=== PATIENT | female | born 1995 | race Caucasian/White ===

== ENCOUNTER → 2020-04-14 08:37 | Outpatient (BNVA) | payer MEDICAID, SELFPAY | PROVIDERS: PCP Internal Medicine; Referring Provider Internal Medicine; Visit Provider Internal Medicine Endocrinology, Diabetes & Metabolism | DX: E05.90 Thyrotoxicosis, unspecified without thyrotoxic crisis or storm (principal); E04.2 Nontoxic multinodular goiter; E55.9 Vitamin D deficiency, unspecified; E66.9 Obesity, unspecified; Z91.018 Allergy to other foods; Z91.09 Other allergy status, other than to drugs and biological substances; Z79.899 Other long term (current) drug therapy | CPT/HCPCS: 99212 ==

== ENCOUNTER 2020-04-16 08:54 | Outpatient (REF) | payer MEDICAID, SELFPAY ==
[2020-04-16 11:31] LABS: Free T4 (Free Thyroxine) 1.03 ng/dL (0.71-1.85); Thyroid Stimulating Hormone 1.25 mIU/mL (0.32-4.0); Vitamin D 25-OH Total 20.9 ng/mL (>30)
[2020-04-17 08:57] LABS: Triiodothyronine T3 Total 110 ng/dL (76-181)
== END 2020-04-16 08:55 | disposition home or self-care (01) ==
LOC: HO.10HDL 08:54
PROVIDERS: Visit Provider Internal Medicine Endocrinology, Diabetes & Metabolism
DX: E04.2 Nontoxic multinodular goiter (principal); E05.90 Thyrotoxicosis, unspecified without thyrotoxic crisis or storm; E55.9 Vitamin D deficiency, unspecified
CPT/HCPCS: 82306; 84439; 84443; 84480

== ENCOUNTER 2020-10-12 10:47 | Outpatient (REF) | payer MEDICAID, SELFPAY ==
[2020-10-12 15:06] LABS: Free T4 (Free Thyroxine) 0.81 ng/dL (0.71-1.85); Thyroid Stimulating Hormone 3.13 uIU/mL (0.32-4.0)
== END 2020-10-12 10:48 | disposition home or self-care (01) ==
LOC: HO.10HDL 10:47
PROVIDERS: Visit Provider Internal Medicine Endocrinology, Diabetes & Metabolism
DX: E04.2 Nontoxic multinodular goiter (principal); E05.90 Thyrotoxicosis, unspecified without thyrotoxic crisis or storm
CPT/HCPCS: 36415; 84439; 84443; 84481

== ENCOUNTER → 2020-10-23 14:09 | Outpatient (BNVA) | payer MEDICAID, SELFPAY | PROVIDERS: PCP Internal Medicine; Visit Provider Internal Medicine Endocrinology, Diabetes & Metabolism | DX: E05.90 Thyrotoxicosis, unspecified without thyrotoxic crisis or storm (principal); E04.2 Nontoxic multinodular goiter; E55.9 Vitamin D deficiency, unspecified; E66.9 Obesity, unspecified | CPT/HCPCS: 99212 ==

== ENCOUNTER 2021-04-27 14:24 | Outpatient (REF) | payer MEDICAID, SELFPAY ==
--- NOTE | ~2021-04-27 | US_ITS ---
EXAMINATION: US DIAGNOSTIC ULTRASOUND BREAST, LEFT CLINICAL INFORMATION: Recent clear left nipple discharge 1-2 months. Negative laboratory. No prior breast imaging. Family history breast cancer paternal grandmother, aunt. COMPARISON: None. TECHNIQUE: Ultrasound left breast is targeted to the retroareolar and periareolar region. Grayscale imaging and color Doppler are performed without and with harmonics. FINDINGS: There is no focal suspicious finding. There is no cystic or solid mass, architectural abnormality, duct ectasia, or edema in the soft tissue planes. Results and management options are discussed with the patient at time of visit. US/US breast LT limited IMPRESSION: Unremarkable targeted left breast ultrasound. ASSESSMENT: BI-RADS 1: Negative RECOMMENDATION: If clinically indicated, further assessment for unexplained left nipple discharge may be performed with breast MRI without and with gadolinium contrast.
== END 2021-04-27 14:25 | disposition home or self-care (01) ==
LOC: HO.MAMMO 14:24
PROVIDERS: Visit Provider Advanced Practice Midwife
DX: N64.52 Nipple discharge (principal)
CPT/HCPCS: 76642

== ENCOUNTER 2021-09-10 22:49 | Emergency (ER) | payer MEDICAID, SELFPAY ==
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
[2021-09-11 00:16] VITALS: BP 137/89; PULSE 94; RESP 16; TEMP 36.7; O2SAT 100; BMI 37.0
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
[2021-09-11] MEDS: Ibuprofen 600 MG TABLET PO (01:00)
== END 2021-09-11 01:31 | disposition home or self-care (01) ==
PROVIDERS: Emergency Provider Emergency Medicine Emergency Medical Services; PCP Internal Medicine
DX: S39.012A Strain of muscle, fascia and tendon of lower back, initial encounter (principal); V43.52XA Car driver injured in collision with other type car in traffic accident, initial encounter; Y93.89 Activity, other specified; Y92.488 Other paved roadways as the place of occurrence of the external cause; Y99.8 Other external cause status
CPT/HCPCS: 72100; 99283; 99284

== ENCOUNTER 2022-11-17 15:03 | Outpatient (REF) | payer MEDICAID, SELFPAY ==
--- NOTE | ~2022-11-17 | US_ITS ---
EXAMINATION: US PELVIS CLINICAL INFORMATION: Left adnexal pain; the last menstrual period was on 10/2022. COMPARISON: None available. TECHNIQUE: Ultrasound of the pelvis is performed using both transabdominal and transvaginal transducers along with Doppler. Transvaginal imaging is performed due to inadequate visualization transabdominally. FINDINGS: Uterus: The uterus is anteverted and anteflexed. The uterus measures 8.9 x 2.4 x 4.9 cm. Nabothian cysts are seen within the cervix. The double wall endometrial thickness is 0.4 mm. The uterus is smooth in contour and has normal myometrial echogenicity. No visible fibroid. Adnexa: Both ovaries are visualized. There is normal color flow to the adnexa. There is no ovarian torsion. There is no pelvic ascites or fluid collection. Right ovary measures 2.9 x 1.4 x 2.3 cm, volume 4.9 mL. Left ovary measures 3.0 x 1.6 x 1.5 cm, volume 3.8 mL. US/US pelvic and transvaginal IMPRESSION: Nabothian cysts are seen within the cervix. The examination is otherwise unremarkable.
== END 2022-11-17 15:04 | disposition home or self-care (01) ==
LOC: HO.US 15:03
PROVIDERS: PCP Internal Medicine; Visit Provider Registered Nurse
DX: N91.2 Amenorrhea, unspecified (principal)
CPT/HCPCS: 76830; 76856

== ENCOUNTER 2022-12-14 11:44 | Emergency (ER) | payer MEDICAID, SELFPAY ==
[2022-12-14 12:20] VITALS: BP 153/89; PULSE 135; RESP 20; TEMP 37.9; O2SAT 97; BMI 37.1
--- NOTE | 2022-12-14 12:25 | ED_ITS ---
HPI - General Adult General Chief complaint: Dizziness Stated complaint: Dizziness Time Seen by Provider: 12/14/22 13:17 Source: patient Mode of arrival: ambulatory Limitations: no limitations History of Present Illness HPI narrative: 27 year old female presents with dizziness Started 3 days ago Symptoms worse with certain positions and randomly Described both as lightheaded and sensation of room spinning No nausea or vomiting No MARCANO, chest pain, SOB + Palpitations New in Onset No prior treatment Associated with anxiety and stress + FH father with heart problems. Related Data Home Medications Medication Instructions Recorded Confirmed fluticasone propionate 50 1 spray intranasal DAILY 10/23/20 mcg/actuation nasal spray,suspension (Flonase Allergy Relief) loratadine 10 mg capsule 10 mg PO DAILY 10/23/20 Previous Rx's Medication Instructions Recorded cholecalciferol (vitamin D3) 50 50 mcg PO DAILY #30 caps 01/15/21 mcg (2,000 unit) capsule cyclobenzaprine 5 mg tablet 5 mg PO BID PRN muscle spasm #10 09/11/21 tabs ibuprofen 600 mg tablet 600 mg PO Q8H PRN pain #20 tabs 09/11/21 meclizine 25 mg tablet 25 mg PO BID PRN dizziness #10 tabs 12/14/22 ondansetron 4 mg disintegrating 4 mg PO Q8H PRN nausea and 12/14/22 tablet vomiting #10 tabs Allergies Allergy/AdvReac Type Severity Reaction Status Date / Time No Known Drug Allergies Allergy Unknown NONE Verified 12/14/22 16:14 [NO KNOWN DRUG ALLERGIES] Apple (Diagnostic) Allergy Unknown shortness Uncoded 11/12/21 17:31 of breath ENVIRONMENTAL Allergy Unknown EYES RUNNY Uncoded 11/12/21 17:31 STUFFY kiwi, pears, dogs/cats, Allergy Unknown shortness Uncoded 11/12/21 17:31 season of breath Review of Systems Review of Systems: CONSTITUTIONAL: Denies weight loss, fever and chills. HEENT: Denies changes in vision and hearing. RESPIRATORY: Denies SOB and cough. CV: + palpitations no CP. GI: Denies abdominal pain, nausea, vomiting and diarrhea. : Denies dysuria and urinary frequency. MSK: Denies myalgia and joint pain. SKIN: Denies rash and pruritus. NEUROLOGICAL: Denies headache and syncope. PSYCHIATRIC: Denies recent changes in mood. Denies anxiety and depression. All other ROS are negative unless in [facility] Past Medical History Medical History Multinodular goiter Obesity Subclinical hyperthyroidism Vitamin D deficiency Surgical History Hx of tonsillectomy Family History Family History Father Diabetes Mother Lyme disease Pre-diabetes HTN (hypertension) Social History Social History Alcohol intake: never Smoked in Last 30 Days: No Use of substances other than those prescribed or required for medical reasons: No Advance Directives: No Advance Directives Information Provided: Yes Physical Exam ED Vital Signs: Vital Signs - 24 hr 12/14/22 12:20 12/14/22 13:03 12/14/22 13:10 Temperature 100.3 F 98.8 F Pulse Rate 135 H 113 H 127 H Respiratory Rate 20 18 Blood Pressure 153/89 H 147/77 H 129/74 Pulse Oximetry 97 100 Oxygen Delivery Method Room Air Room Air 12/14/22 13:10 12/14/22 13:11 12/14/22 18:09 Temperature 98.3 F Pulse Rate 117 H 121 H 106 H Respiratory Rate 22 H Blood Pressure 139/84 150/96 H 129/84 Pulse Oximetry 100 Oxygen Delivery Method Room Air BMI result Body Mass Index 37.1 GEN: Well developed, no acute distress, alert, oriented HEENT: Normocephalic, atraumatic, normal external ears, nose appears normal, no oropharyngeal edema or exudates Eyes: Normal to appearance Neck: Supple, no lymphadenopathy Respiratory: Talks in complete sentences, no respiratory distress, clear to auscultation bilaterally Cardiovascular: Regular rate and rhythm, no murmurs rubs or gallops Abdomen: Soft, nontender, nondistended, no guarding, no rebound Back: No CVA tenderness Extremities: No clubbing cyanosis or edema Neurologic: No focal neurologic deficits, cranial nerves 2-12 intact, strength is 5/5 bilaterally, no nystagmus Skin: No rash Course Course Course Narrative: RME- 27-year-old female presents for evaluation of weakness, dizziness. She also reports irregular periods. She is not on control. Patient noted to have a temperature of a 100.3?. Plan for labs, UA, chest x-ray, viral swab, test.. The patient appears well. Reevaluation(s) Reevaluation #1: Patient is doing much better at this time. She continues have some slight lightheadedness. However she does not want the intravenous catheter replaced to you provide better flow. She is drinking orally without significant difficulty. I suspect her symptoms are multifactorial which is most likely vertigo associated with some orthostatic hypotension. She would like to be discharged at this time. She will drink fluids at home. Will provide her with prescriptions for Zofran and meclizine. She will return for any worsening or concerning symptoms. She is well aware of the EKG changes which would likely rate related as opposed to ischemic in nature. However, should she develop any cardiac symptoms she will return immediately. Time: 18:22 Medications Administered Discontinued Medications Generic Name Dose Route Start Last Admin Trade Name Freq PRN Reason Stop Dose Admin Meclizine HCl 25 mg 12/14/22 13:31 12/14/22 13:47 Meclizine Hcl 25 Mg Tablet PO 12/14/22 13:32 25 mg ONCE ONE Administration Ondansetron HCl 4 mg 12/14/22 13:31 12/14/22 13:47 Ondansetron Hcl 4 Mg/2 Ml Vial IVPUSH 12/14/22 13:32 4 mg ONCE ONE Administration Medical Decision Making Medical Decision Making [facility] Narrative: 27 yo female with no sig medical problems presents with dizziness. Exam with regular HR and tachycardic, anxious. DD: anxiety, orthostatic hypotension, tachycardia, vertigo, BPPV, labarythitis, vestibular neurotitis, electrolyte, hypoglycemia, anemia Plan: Labs, no indication at this time for neuroimaging. Differential Diagnosis Differential Diagnoses: The differential diagnosis associated with the presentation includes (see above) Vertigo, orthostasis Admission/Observation Consideration of admission/observation: Escalation of care including admission/observation considered Lab Data [facility] Lab Attestation statement: I reviewed the patient's lab results. 12/14/22 12:40 12/14/22 12:40 Labs: Lab Results 12/14/22 12/14/22 12/14/22 Range/Units 12:36 12:40 12:40 WBC 6.8 (4.8-10.8) X10*3/uL RBC 4.97 (4.20-5.50) X10*6/uL Hgb 14.0 (12.0-16.0) g/dl Hct 43.8 (37.0-47.0) % MCV 88.1 (80.0-98.0) fL MCH 28.2 (27.0-33.0) pg MCHC 32.0 (31.0-35.0) g/dl RDW 12.0 (11.0-16.0) % Plt Count 298 (160-400) X10*3/uL MPV 10.4 (9.4-12.3) fL Immature Gran % (Auto) 0.3 (0.0-0.4) % Neut % (Auto) 58.1 (45-73) % Lymph % (Auto) 30.9 (20-40) % Ellsworth % (Auto) 5.9 (2-11) % Eos % (Auto) 4.1 H (0-4) % Baso % (Auto) 0.7 (0-2) % Lymph # (Auto) 2.1 (1.2-4.9) X10*3/uL Ellsworth # (Auto) 0.4 (0.1-1.2) X10*3/uL Eos # (Auto) 0.3 (0.0-0.4) X10*3/uL Baso # (Auto) 0.1 (0.0-0.2) X10*3/uL Abs Immat Gran (auto) 0.02 (0.00-0.03) X10*3/uL Absolute Neuts (auto) 3.9 (2.0-8.3) x10*3/uL Absolute Nucleated RBC 0.000 (0.0-0.012) X10*3/uL Nucleated RBC % (auto) 0.0 (0.0-0.2) /100WBC Sodium 142 (135-145) mmol/L Potassium 3.8 (3.3-5.1) mmol/L Chloride 109 H (96-108) mmol/L Carbon Dioxide 21 L (22-29) mmol/L Anion Gap 16 (12-20) BUN 6 L (9-16) mg/dL Creatinine 0.71 (0.5-1.4) mg/dL Estim Creat Clear Calc 132.9 Estimated GFR > 60 Random Glucose 104 (60-115) mg/dL Calcium 9.9 (8.4-10.2) mg/dL Total Bilirubin 0.9 (0.0-1.0) mg/dL AST 19 (5-31) U/L ALT 28 (0-31) U/L Alkaline Phosphatase 115 (39-117) U/L Total Protein 7.7 (6.5-8.0) g/dL Albumin 4.5 (3.5-5.0) g/dL Lipase 83 H (8-78) U/L Beta HCG, Quant mIU/mL Urine Color Yellow Urine Appearance Clear Urine pH 7.5 (5.0-9.0) Ur Specific [place] <= 1.005 (1.005-1.025) Urine Protein Negative (Neg-Trace) mg/dL Urine Glucose (UA) Negative (Negative) mg/dL Urine Ketones Negative (Negative) mg/dL Urine Blood Negative (Negative) Urine Nitrite Negative (Negative) Ur Leukocyte Esterase Negative (Negative) Urine RBC 0-2 (0-2) /HPF Urine WBC 0-5 (0-5) /HPF Ur Squamous Epith Cells 0-2 (0-2) /HPF Urine Bacteria None Seen (None Seen) Hyaline Casts 0-2 (0-2) /LPF Influenza Type A (PCR) (Negative) Influenza Type B (PCR) (Negative) RSV RNA Qual (PCR) (Negative) SARS-CoV-2 RNA (RT-PCR) (Negative) 12/14/22 12/14/22 Range/Units 12:40 12:41 WBC (4.8-10.8) X10*3/uL RBC (4.20-5.50) X10*6/uL Hgb (12.0-16.0) g/dl Hct (37.0-47.0) % MCV (80.0-98.0) fL MCH (27.0-33.0) pg MCHC (31.0-35.0) g/dl RDW (11.0-16.0) % Plt Count (160-400) X10*3/uL MPV (9.4-12.3) fL Immature Gran % (Auto) (0.0-0.4) % Neut % (Auto) (45-73) % Lymph % (Auto) (20-40) % Ellsworth % (Auto) (2-11) % Eos % (Auto) (0-4) % Baso % (Auto) (0-2) % Lymph # (Auto) (1.2-4.9) X10*3/uL Ellsworth # (Auto) (0.1-1.2) X10*3/uL Eos # (Auto) (0.0-0.4) X10*3/uL Baso # (Auto) (0.0-0.2) X10*3/uL Abs Immat Gran (auto) (0.00-0.03) X10*3/uL Absolute Neuts (auto) (2.0-8.3) x10*3/uL Absolute Nucleated RBC (0.0-0.012) X10*3/uL Nucleated RBC % (auto) (0.0-0.2) /100WBC Sodium (135-145) mmol/L Potassium (3.3-5.1) mmol/L Chloride (96-108) mmol/L Carbon Dioxide (22-29) mmol/L Anion Gap (12-20) BUN (9-16) mg/dL Creatinine (0.5-1.4) mg/dL Estim Creat Clear Calc Estimated GFR Random Glucose (60-115) mg/dL Calcium (8.4-10.2) mg/dL Total Bilirubin (0.0-1.0) mg/dL AST (5-31) U/L ALT (0-31) U/L Alkaline Phosphatase (39-117) U/L Total Protein (6.5-8.0) g/dL Albumin (3.5-5.0) g/dL Lipase (8-78) U/L Beta HCG, Quant < 2 mIU/mL Urine Color Urine Appearance Urine pH (5.0-9.0) Ur Specific N[place] (1.005-1.025) Urine Protein (Neg-Trace) mg/dL Urine Glucose (UA) (Negative) mg/dL Urine Ketones (Negative) mg/dL Urine Blood (Negative) Urine Nitrite (Negative) Ur Leukocyte Esterase (Negative) Urine RBC (0-2) /HPF Urine WBC (0-5) /HPF Ur Squamous Epith Cells (0-2) /HPF Urine Bacteria (None Seen) Hyaline Casts (0-2) /LPF Influenza Type A (PCR) NEGATIVE (Negative) Influenza Type B (PCR) NEGATIVE (Negative) RSV RNA Qual (PCR) NEGATIVE (Negative) SARS-CoV-2 RNA (RT-PCR) NEGATIVE (Negative) Independent Interpretation I performed an independent interpretation of an: EKG (Sinus tachycardia, ST depressions HR 140) and Plain X-Ray (Chest: NAD) Interpretation: Repeat EKG at 6:03 p.m. presents with normal sinus rhythm heart rate 95 sinus arrhythmia, no acute ST elevations depressions which appeared to have resolved ST depressions. Nonspecific changes, RSR prime in V1. Prescription Management I considered prescription management with: Pain Medication and Antibiotic Discharge Plan Discharge Clinical Impression: Orthostatic hypotension, Vertigo, Anxiety, ST segment depression, Sinus tachycardia Patient Disposition: Home, Self-Care Instructions: Vertigo (ED), Panic Disorder (ED), Dizziness (ED), Anxiety (ED), Tachycardia (ED), Electrophysiology Study (DC) Additional Instructions: You were seen today for dizziness and lightheadedness. The dizziness was consistent with vertigo with a sensation of movement while the lightheadedness is consistent with orthostatic hypotension. Recommending that you drink plenty of fluids and keep yourself hydrated. Is also noted that when your heart rate was approximately 140 beats per minute, you had some EKG changes that are potentially concerning but more likely are rate related nature. You should follow-up with dye expert for further evaluation. Should he develop any chest pain, shortness breath, lightheadedness or other concerning symptoms, please return immediately to the hospital for re-evaluation. Prescriptions: New ondansetron 4 mg tablet,disintegrating 4 mg PO Q8H PRN (Reason: nausea and vomiting) Qty: 10 0RF meclizine 25 mg tablet 25 mg PO BID PRN (Reason: dizziness) Qty: 10 0RF No Action cholecalciferol (vitamin D3) 50 mcg (2,000 unit) capsule 50 mcg PO DAILY Qty: 30 2RF Rx Instructions: Please request more refills from primary care provider. cyclobenzaprine 5 mg tablet 5 mg PO BID PRN (Reason: muscle spasm) Qty: 10 0RF Rx Instructions: You can take this medication twice a day in the 1st 3 days and then you should take it at bedtime. Please avoid driving when taking this medication. ibuprofen 600 mg tablet 600 mg PO Q8H PRN (Reason: pain) Qty: 20 0RF Referrals: Wander Gallagher MD [Physician] - 1 week
[2022-12-14 13:03] VITALS: BP 147/77; PULSE 113; RESP 18; TEMP 37.1; O2SAT 100
[2022-12-14 13:10] VITALS: BP 129/74; BP 139/84; PULSE 117; PULSE 127
[2022-12-14 13:11] VITALS: BP 150/96; PULSE 121
--- NOTE | 2022-12-14 16:18 | PC.NURSE ---
Pt given PO fluids, with IV fluids, pt reporting still not feeling well, spinning has improved, but pt still feels dizzy and off
[2022-12-14 18:09] VITALS: BP 129/84; PULSE 106; RESP 22; TEMP 36.8; O2SAT 100
== END 2022-12-14 18:40 | disposition home or self-care (01) ==
PROVIDERS: Emergency Provider Emergency Medicine; PCP Internal Medicine
DX: I95.1 Orthostatic hypotension (principal); R42 Dizziness and giddiness; R00.0 Tachycardia, unspecified; F41.9 Anxiety disorder, unspecified; Z20.822 Contact with and (suspected) exposure to COVID-19; Z20.828 Contact with and (suspected) exposure to other viral communicable diseases; Z79.899 Other long term (current) drug therapy; E66.9 Obesity, unspecified; Z68.37 Body mass index [BMI] 37.0-37.9, adult
CPT/HCPCS: 0241U; 36415; 71046; 80053; 81001; 83690; 84702; 85025; 93005; 96374; 99284; 99285; J2405

== ENCOUNTER 2023-02-01 09:00 | Outpatient (AMB) | payer MEDICAID, SELFPAY ==
--- NOTE | 2023-02-01 09:01 | MHC.OFFVIS ---
Intake Vital Signs 02/01/23 09:02 Height 5 ft 4 in Weight 216 lb BMI 37.1 BP 142/90 H Blood Pressure Location Lt brachial Position Sitting Pulse 118 H Intake Visit Reasons: [employer]/ Ap/ hbp/ abn ekg Intake Note: NPV [employer] Supervisor Required: No Accompanied by: Self / Same As Patient Allergies No Known Drug Allergies [NO KNOWN DRUG ALLERGIES] Allergy (Unknown, Verified 02/01/23 09:03) NONE Apple (Diagnostic) Allergy (Unknown, Uncoded 02/01/23 09:03) shortness of breath ENVIRONMENTAL Allergy (Unknown, Uncoded 02/01/23 09:03) EYES RUNNY STUFFY kiwi, pears, dogs/cats, season Allergy (Unknown, Uncoded 02/01/23 09:03) shortness of breath Medication List - Last Reconciled 02/01/23 by Thomas San MD fluticasone propionate 50 mcg/actuation (Flonase Allergy Relief) 1 spray intranasal DAILY loratadine 10 mg PO DAILY HPI HPI Comments History of Present Illness Details Thank you for referring Lois in cardiology consultation today for palpitations. She is a 27-year-old woman who went to [facility] in December because of anxiety episode. While in the Emergency she was told that she had elevated heart rate. She said while she is very anxious heart rate was getting relief fast. Patient says for the last month and half since then she has been having episodes of fast heart rate. She has prior history of subclinical hyperthyroidism as well as multinodular goiter, however blood test done recently few months ago prior to these episodes started, she said her thyroid function was within normal limits. However she feels that these symptoms are similar to when she had hyperthyroidism in the past. She has had no recent TSH checked in the [place] lab system. Patient says she gets the symptoms of rapid heart rate when she notices heart rate gradually ramps up and then usually calms down. She says this could be related to anxiety episodes. However she does not attribute to any increased stress in her life. Also noted today to have elevated blood pressure, she does not monitor blood pressure at home although she has a machine. She does have family history of hypertension. She denies any chest pain, lightheadedness, syncope. Denies any shortness of breath orthopnea PND. [facility] Medical History Multinodular goiter Obesity Subclinical hyperthyroidism Vitamin D deficiency Surgical History Hx of tonsillectomy Family History Father Diabetes Mother Lyme disease Pre-diabetes HTN (hypertension) Social History Alcohol intake: never Review of Systems Const Denies chills, Denies daytime sleepiness, Denies fatigue, Denies fever(s), Denies frequent falls, Denies night sweats, Denies snoring, Denies weakness, Denies weight gain and Denies weight loss Eyes Denies loss of vision ENT Denies dizziness and Denies hearing loss Card Denies chest pain, Denies chest pain with activity, Denies syncope, Denies rapid heart rate, Denies edema, Denies claudication, Denies leg edema, Denies lightheadedness, Denies palpitations, Denies dyspnea, Denies dyspnea on exertion and Denies orthopnea Resp Denies cough, Denies excessive phlegm production, Denies dyspnea, Denies dyspnea on exertion, Denies snoring and Denies wheezing GI Denies abdominal pain, Denies hematochezia, Denies change in bowel habits, Denies change in stool character, Denies heartburn, Denies nausea and Denies vomiting Denies hematuria, Denies urinary frequency and Denies dysuria Musc Denies arthralgias, Denies muscle weakness, Denies numbness and Denies tingling Skin/Breast Denies nail changes and Denies rash Neuro Denies Abnormal speech present, Denies dizziness, Denies syncope, Denies frequent falls, Denies loss of vision, Denies memory loss, Denies numbness, Denies tingling and Denies weakness Psych Denies depression and Denies memory loss Endo Denies fatigue and Denies palpitations Aller/Immun Denies wheezing Physical Exam Vital Signs: Last Vital Signs Pulse 118 H 02/01/23 09:02 BP 142/90 H 02/01/23 09:02 BMI result Body Mass Index 37.1 Const General: cooperative, comfortable, no acute distress, alert, awake and anxious Nutritional Appearance: obese Orientation/consciousness: patient oriented x3 Limitations: no limitations HEENT Head: Yes normocephalic and Yes atraumatic Neck Neck: Yes trachea midline, Yes supple and Yes no JVD Resp Effort & Inspection: normal respiratory effort Auscultation: clear to auscultation bilaterally Cardio Jugular venous distension: no JVD Palpation: normal PMI Rate: tachycardic Rhythm: regular rhythm Heart sounds: S1 normal heart sound present, S2 normal heart sound present, no click, no gallops, no murmurs and no rubs GI Auscultation: normal bowel sounds Skin General skin exam: no rashes or lesions noted Neuro General: patient oriented x3 and no focal motor deficits Speech: No Abnormal speech present Extrem General: Yes no clubbing, cyanosis or edema Assessment & Plan Assessment & Plan (1) Palpitations: Code(s): R00.2 - Palpitations Plan: Patient with increasing symptoms of palpitation recently. Could be related to recurrent hyperthyroidism. Will check TSH. Could also be related to anxiety disorder. We discussed about stress mitigation strategies. Avoidance of stimulants was discussed. However also other possibilities include SVT and inappropriate sinus tachycardia. Would suggest her to have or 48 hour Holter monitor. Will also suggest echocardiogram to evaluate for cardiac structure and function. Less likely other arrhythmias such as atrial fibrillation/ventricular arrhythmias. Further treatment based on the findings. Would avoid pharmacotherapy at this point in time. (2) Elevated blood pressure, situational: Code(s): R03.0 - Elevated blood-pressure reading, without diagnosis of hypertension Plan: Patient noted to have elevated blood pressure reading today. This could be related to anxiety. However she does have strong family history of hypertension. Advised to participate in stress mitigation strategies as well as participate in lifestyle modification. Low-salt diet and increase water intake was discussed. Regular physical activity and participate in weight loss program was discussed. Blood pressure remains elevated may require pharmacotherapy. Also check and rule out hyperthyroidism, check TSH in the near future. Advised to monitor blood pressure at home and maintain a log. Follow up in the clinic in 6 weeks time. Orders: Orders CA echo transthoracic complete Today R00.2 - Palpitations TSH reflex Free T4 Today R00.2 - Palpitations ECG holter monitor 48 hour Today R00.2 - Palpitations Coding Level of Care Code New Pt Level 4 (21077) Diagnoses Palpitations R00.2 Elevated blood pressure, situational R03.0
[2023-02-01 09:02] VITALS: BP 142/90; PULSE 118; BMI 37.1
== END 2023-02-01 09:28 | disposition home or self-care (01) ==
LOC: HO.HCSM 09:00
PROVIDERS: PCP Internal Medicine; Referring Provider Internal Medicine; Visit Provider Internal Medicine Cardiovascular Disease
DX: R00.2 Palpitations (principal); R03.0 Elevated blood-pressure reading, without diagnosis of hypertension
CPT/HCPCS: 99204

== ENCOUNTER → 2023-02-01 09:00 | Outpatient (BNVA) | payer MEDICAID, SELFPAY | PROVIDERS: PCP Internal Medicine; Referring Provider Internal Medicine; Visit Provider Internal Medicine Cardiovascular Disease | DX: R00.2 Palpitations (principal); R03.0 Elevated blood-pressure reading, without diagnosis of hypertension | CPT/HCPCS: 99202 ==

== ENCOUNTER → 2023-02-28 08:56 | Outpatient (REF) | payer MEDICAID, SELFPAY ==
--- NOTE | 2023-02-28 08:59 | HM_ITS ---
Conclusion: 1. Patient was monitored for total period of 1 day and 23 hours 2. Baseline was normal sinus rhythm with average heart of 85 beats per minute 3. No significant pauses or arrhythmias noted 4. No patient reported events MTDD
--- NOTE | 2023-02-28 08:59 | CA_ITS ---
Transthoracic Echocardiogram Patient (Last, First, Middle): Lois Simpson, Gender: Female Date of : 1995 Age: 27 Procedure Date: 02/28/2023 Procedure Type: Transthoracic Echocardiogram Location: OP Height: 162.56 cm Weight: 99.79 kg BSA: 2.04 m2 Heart Rate: bpm BP: 122 / 70 mmHg Remotely Operated Vehicle: TERESA Referring MD: Thomas San MD Symptoms: R00.2 - Palpitations Study Quality: Good ECG Rhythm: Sinus Conclusions: - The left ventricular systolic function is normal. The calculated ejection fraction is 60% by biplane method. - No obvious valvular pathology seen on this study. - Large, approximately 5 x 5cm structure posterior to left ventricle; possible dilated coronary sinus, but not seen in other views. Cannot exclude hiatal hernia. Findings Left Ventricle Normal left ventricular cavity size. The left ventricular systolic function is normal. The calculated ejection fraction is 60% by biplane method. There is no evidence of regional wall motion abnormalities. Diastolic function is normal for age. There is mild septal asymmetric hypertrophy. Right Ventricle Normal right ventricular cavity size and systolic function. Atria Both atria are normal in size. Aortic Valve There is a normal trileaflet aortic valve. There is no aortic valve stenosis. There is no aortic valve regurgitation. Mitral Valve The mitral valve appears normal. There is no mitral valve regurgitation. There is no mitral valve stenosis. Pulmonic Valve The pulmonic valve is likely normal. Tricuspid Valve There is trace tricuspid valve regurgitation. There is no evidence of pulmonary hypertension. Great Vessels The asc aorta is normal in size. Venous The inferior vena cava is normal in size and collapses greater than 50% with inspiration. Pericardium/Pleural There is no evidence of pericardial effusion. Prior Study Comparison No prior study available for comparison. Recommendations, Care & Conclusions No obvious valvular pathology seen on this study. Measurements 2D Linear Measurements IVSd: 1.14 0.6-0.9/0.6-1.0 cm LVIDd: 3.72 3.9-5.3/4.2-5.9 cm LVIDd Index: 1.82 2.4-3.2/2.2-3.1 cm/m2 LVIDs: 2.50 2.0-3.6 cm LVPWd: 0.97 0.7-1.1 cm Ao Root: 2.70 2.1-3.5 cm LA Diam: 3.40 2.7-3.8/3.0-4.0 cm LAIDs Index: 1.67 1.5-2.3 cm/m2 LV Mass: 152.54 67-162/88-224 g LV Mass Index: 74.78 43-95/49-115 g/m2 LVOT Diam: 2.00 3.0+(-)1.3 cm 2D Systolic Function EF 4C: 63.20 >55% EF 2C: 56.50 >55% EF BiP: 59.80 >55% Mitral Valve MV Pk E: 1.22 MV PK A: 0.84 MV Decel Time: 150.00 E/A: 1.50 E'Lateral: 13.90 E'Medial: 10.90 E/E' Med: 11.20 E/E' Lat: 8.80 PHT: 44.00 MVA PHT: 5.00 Decel Benson: 8.14 Aortic Valve AoV Pk Miguel: 1.48 AoV Mn Miguel: 0.97 AoV VTI: 0.35 AoV Pk Grad: 9.00 Aov Mn Grad: 5.00 RADU Cont.VTI: 2.20 LVOT LVOT Pk Miguel: 1.00 LVOT Mn Miguel: 0.69 LVOT VTI: 0.24 LVOT Pk Grad: 4.00 LVOT Mn Grad: 2.00 LVOT Diam: 2.00 LVOT Area: 3.14 Diastolic Function MV Pk E: 1.22 MV Pk A: 0.84 E/A: 1.50 E'Medial: 10.90 E/E' Med: 11.20 E' Laterial: 13.90 E/E' Lat: 8.80 Right Ventricle TAPSE (mm): 23.00 TVS' Miguel: 10.00 Tricuspid Valve TR Pk Miguel: 1.90 TR Pk Grad: 14.00 RA Press: 3.00 RVSP: 17.00 Great Vessels Aorta Ao Root-2D: 2.70 2.0-3.7 cm Ao Asc: 2.80 2.1-3.4 cm Ao Arch: 2.40 Pulmonary Valve PV Pk Miguel: 1.04 Peak PV Grad: 4.00 Updated in Other Vendor System with Status of Final Wander Gallagher MD electronically signed on 03/01/2023 12:28:10 PM with status of Final
== END ==
LOC: HO.CARD 08:56
PROVIDERS: PCP Internal Medicine; Visit Provider Internal Medicine Cardiovascular Disease
DX: R00.2 Palpitations (principal)
CPT/HCPCS: 93225; 93306

== ENCOUNTER → 2023-02-28 08:59 | Outpatient (BNV) | payer MEDICAID, SELFPAY | PROVIDERS: PCP Internal Medicine; Visit Provider Internal Medicine | DX: R00.2 Palpitations (principal) | CPT/HCPCS: 93227; 93306 ==

== ENCOUNTER → 2023-03-15 09:04 | Outpatient (REF) | payer MEDICAID, SELFPAY | LOC: HO.CARD 09:04 | PROVIDERS: PCP Internal Medicine; Visit Provider Internal Medicine Cardiovascular Disease | DX: Q26.1 Persistent left superior vena cava (principal) | CPT/HCPCS: 93308 ==

== ENCOUNTER → 2023-03-15 09:07 | Outpatient (BNV) | payer MEDICAID, SELFPAY | PROVIDERS: PCP Internal Medicine; Visit Provider Internal Medicine | DX: Q26.1 Persistent left superior vena cava (principal) | CPT/HCPCS: 93308 ==

== ENCOUNTER 2023-04-10 15:12 | Outpatient (AMB) | payer MEDICAID, SELFPAY ==
[2023-04-10 15:14] VITALS: BP 120/82; PULSE 98; BMI 37.5
--- NOTE | 2023-04-10 15:14 | MHC.OFFVIS ---
Intake Vital Signs 04/10/23 15:14 Height 5 ft 4 in Weight 218 lb 4.122 oz BMI 37.5 BP 120/82 Blood Pressure Location Lt brachial Position Sitting Pulse 98 Pulse Source Pulse Oximeter Intake Visit Reasons: f/u after testing Intake Note: f/u after testing Quality Control Microbiology Supervisor Required: No Allergies No Known Drug Allergies [NO KNOWN DRUG ALLERGIES] Allergy (Unknown, Verified 04/10/23 15:18) NONE Apple (Diagnostic) Allergy (Unknown, Uncoded 02/01/23 09:03) shortness of breath ENVIRONMENTAL Allergy (Unknown, Uncoded 02/01/23 09:03) EYES RUNNY STUFFY kiwi, pears, dogs/cats, season Allergy (Unknown, Uncoded 02/01/23 09:03) shortness of breath Medication List - Last Reconciled 04/10/23 by Mala Hedrick NP-C fluticasone propionate 50 mcg/actuation (Flonase Allergy Relief) 1 spray intranasal DAILY levothyroxine 75 mcg PO DAILY loratadine 10 mg PO DAILY HPI f/u after testing HPI Details Lois is a 27-year-old female with no known cardiac history who recently presented with report heart palpitations. She underwent Holter monitor echocardiogram and ultimately had a CT scan of the heart and now presents for follow-up. today she reports that she continues to feel heart palpitations at times. She does not recall having any when she wore the heart monitor. Her palpitations are quick beats in her chest. Other time she notices a rapid heart rates that can persist and cause her concern. She does not get chest discomfort with activity. At time she will feel a pinching sensation In chest, when at rest. No shortness of breath, presyncope, syncope, PND, orthopnea or edema. She reports good activity tolerance. She is being evaluated for thyroid dysfunction. She has gained weight recently which she feels could be her thyroid. [facility] Medical History (Updated 04/10/23 @ 17:43 by NAVA Gómez) Obesity Vitamin D deficiency Multinodular goiter Subclinical hyperthyroidism Surgical History Hx of tonsillectomy Family History Father Diabetes Mother Lyme disease Pre-diabetes HTN (hypertension) Social History Alcohol intake: never Review of Systems Const Details: weight gain All systems reviewed & are unremarkable except as noted in HPI and below ENT Denies dizziness Card Details: heart palpitations Denies chest pain, Denies chest pain at rest, Denies chest pain with activity, Denies rapid heart rate, Denies pedal edema, Denies edema, Denies leg edema, Denies lightheadedness, Denies palpitations, Denies dyspnea, Denies dyspnea on exertion and Denies orthopnea Resp Denies cough, Denies dyspnea and Denies dyspnea on exertion GI Denies hematochezia and Denies change in stool character Musc Denies abnormal gait, Reports limited range of motion, Reports muscle cramps, Denies muscle weakness, Denies numbness, Denies radiating pain into limb, Denies stiffness and Denies tingling Neuro Denies abnormal gait, Denies dizziness, Denies numbness and Denies tingling Endo Denies palpitations Physical Exam Vital Signs: Last Vital Signs Pulse 98 04/10/23 15:14 BP 120/82 04/10/23 15:14 BMI result Body Mass Index 37.5 Const General: cooperative, healthy appearing, comfortable and no acute distress Orientation/consciousness: patient oriented x3 Resp Effort & Inspection: normal respiratory effort Auscultation: clear to auscultation bilaterally, no crackles, no rales, no rhonchi and no wheezes Cardio Jugular venous distension: no JVD Rate: regular rate Rhythm: regular rhythm Heart sounds: S1 normal heart sound present, S2 normal heart sound present, no murmurs and no rubs Neuro General: patient oriented x3 Extrem General: Yes normal to inspection Psych Appearance: grossly normal Mental Status: mental status grossly normal Speech and movement: Normal speech and movement present Assessment & Plan Assessment & Plan (1) Palpitations: Code(s): R00.2 - Palpitations Plan: Reports of heart palpitations like a quick beat in her chest, a pinching sensation and a fast heart rate. EKG done on 12/14/2022 showed sinus rhythm with sinus arrhythmia, heart rate 95. A Holter monitor was done on 02/28/2023 for 2 days which showed sinusRhythm with average heart rate 85 beats per minute, no pauses or arrhythmia. an echocardiogram was done on 02/28/2023 showing EF 60%, no wall motion abnormalities and no valve abnormalities. test results reviewed with her. No abnormal heartbeats noted. Her symptoms do sound like extrasystoles at times and sinus tach at times. SVT has not been entirely ruled out. She will continue to monitor symptoms. Reduction in caffeinated beverages, increasing fluid intake, activity as tolerated all reviewed. Cardiology follow-up as needed. (2) Abnormal echocardiogram findings without diagnosis: Code(s): R93.1 - Abnormal findings on diagnostic imaging of heart and coronary circulation Plan: echo from above does show a finding of a 5 x5 structure posterior to the left ventricle. She then underwent a bubble study on 03/15/2023 which was not conclusive for a persistent SVC. She was then underwent a CT scan of the chest which showed no persistent left-sided SVC. 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 reviewed this result with patient in detail. Offered reassurance. No further testing needed according to Dr. San. I gave copy of her CT scan report to her. (3) Elevated blood pressure, situational: Code(s): R03.0 - Elevated blood-pressure reading, without diagnosis of hypertension Plan: blood pressure normal range today. She says it is usually high in doctor's offices. Coding Level of Care Code Est Pt Level 3 (44333) Diagnoses Palpitations R00.2 Abnormal echocardiogram findings without diagnosis R93.1 Elevated blood pressure, situational R03.0 Time Spent (min) 24
== END 2023-04-10 15:49 | disposition home or self-care (01) ==
PROVIDERS: PCP Internal Medicine; Visit Provider Nurse Practitioner Family
DX: R00.2 Palpitations (principal); R93.1 Abnormal findings on diagnostic imaging of heart and coronary circulation; R03.0 Elevated blood-pressure reading, without diagnosis of hypertension
CPT/HCPCS: 99213

== ENCOUNTER → 2023-04-10 15:12 | Outpatient (BNVA) | payer MEDICAID, SELFPAY | PROVIDERS: PCP Internal Medicine; Visit Provider Nurse Practitioner Family | DX: R93.1 Abnormal findings on diagnostic imaging of heart and coronary circulation (principal); R03.0 Elevated blood-pressure reading, without diagnosis of hypertension; R00.2 Palpitations | CPT/HCPCS: 99212 ==

== ENCOUNTER → 2023-08-28 07:13 | Outpatient (REF) | payer MEDICAID, SELFPAY ==
--- NOTE | 2023-08-28 | ECG_ITS ---
Test Reason : other chest pain Blood Pressure : / mmHG Vent. Rate : 077 BPM Atrial Rate : 077 BPM P-R Int : 124 ms QRS Dur : 090 ms QT Int : 376 ms P-R-T Axes : 005 021 052 degrees QTc Int : 425 ms Normal sinus rhythm with sinus arrhythmia Normal ECG When compared with ECG of 14-DEC-2022 18:03, No significant change was found Referred By: Brenda Jang Electronically Signed By:ANABEL BRASHER
== END ==
LOC: HO.CARD 07:13
PROVIDERS: PCP Internal Medicine; Visit Provider Internal Medicine
DX: R07.89 Other chest pain (principal); R93.1 Abnormal findings on diagnostic imaging of heart and coronary circulation; R00.2 Palpitations; R03.0 Elevated blood-pressure reading, without diagnosis of hypertension
CPT/HCPCS: 93005; 99212

== ENCOUNTER 2023-08-28 15:38 | Outpatient (AMB) | payer MEDICAID, SELFPAY ==
[2023-08-28 15:43] VITALS: BP 160/90; PULSE 89; BMI 36.7
--- NOTE | 2023-08-28 15:43 | A.OFFVIS_ITS ---
Intake Vital Signs 08/28/23 15:43 Height 5 ft 4 in Weight 213 lb 13.574 oz BMI 36.7 BP 160/90 H Blood Pressure Location Rt brachial Position Sitting Pulse 89 Pulse Source Monitor Intake Visit Reasons: Per PCP-Chest pain & SOB during menstruation Molding Utility Worker Required: No Allergies No Known Drug Allergies [NO KNOWN DRUG ALLERGIES] Allergy (Unknown, Verified 08/28/23 15:46) NONE Apple (Diagnostic) Allergy (Unknown, Uncoded 08/28/23 15:46) shortness of breath ENVIRONMENTAL Allergy (Unknown, Uncoded 08/28/23 15:46) EYES RUNNY STUFFY kiwi, pears, dogs/cats, season Allergy (Unknown, Uncoded 08/28/23 15:46) shortness of breath Medication List - Last Reconciled 08/28/23 by Mala Hedrick NP-C fluticasone propionate 50 mcg/actuation (Flonase Allergy Relief) 1 spray intranasal DAILY labetalol 100 mg PO BID levothyroxine 75 mcg PO DAILY loratadine 10 mg PO DAILY HPI Per PCP-Chest pain & SOB during menstruation HPI Details Lois is a 28 yo female who was previously evaluated for heart palpitations without any arrhythmias noted, with findings of a prominent superior intercostal vein, anatomical variant as seen on echocardiogram and CT scan of heart who now presents with report of chest discomfort and shortness of breath. Today she reports that she has been getting a sharp localized pain to her left chest above her left breast prior to having her menses. During her menses symptom seems to lessen and she only notices it periodically during the rest of the month. When she has the pain hurts to take a deep breath in. She can locate the area but states it is not tender to touch at this time. No chest discomfort brought on by exertional activities. Breathing otherwise is normal, no PND, orthopnea or edema. Occasional heart palpitations, no presyncope, syncope, falls. Upset and tearful at this visit as her blood pressure is elevated today. She reports being active with her young child. Does not engage in routine exercise. [facility] Medical History Obesity Vitamin D deficiency Multinodular goiter Subclinical hyperthyroidism Surgical History Hx of tonsillectomy Family History Father Diabetes Mother Lyme disease Pre-diabetes HTN (hypertension) Social History Alcohol intake: never Review of Systems Const All systems reviewed & are unremarkable except as noted in HPI and below ENT Denies dizziness Card Reports chest pain, Denies chest pain at rest, Denies chest pain with activity, Denies rapid heart rate, Denies pedal edema, Denies edema, Denies leg edema, Denies lightheadedness, Denies palpitations, Reports dyspnea, Denies dyspnea on exertion and Denies orthopnea Resp Denies cough, Reports dyspnea and Denies dyspnea on exertion GI Denies hematochezia and Denies change in stool character Musc Denies abnormal gait, Denies limited range of motion, Denies muscle cramps, Denies muscle weakness, Denies numbness, Denies radiating pain into limb, Denies stiffness and Denies tingling Neuro Denies abnormal gait, Denies dizziness, Denies numbness and Denies tingling Endo Denies palpitations Physical Exam Vital Signs: BMI result Body Mass Index 36.7 Const General: cooperative, healthy appearing, comfortable and no acute distress Orientation/consciousness: patient oriented x3 Resp Effort & Inspection: normal respiratory effort Auscultation: clear to auscultation bilaterally, no crackles, no rales, no rhonchi and no wheezes Cardio Jugular venous distension: no JVD Rate: regular rate Rhythm: regular rhythm Heart sounds: S1 normal heart sound present, S2 normal heart sound present, no murmurs and no rubs Neuro General: patient oriented x3 Extrem General: Yes normal to inspection Psych Appearance: grossly normal Mental Status: mental status grossly normal Speech and movement: Normal speech and movement present Office Procedures EKG Details: Today, read by me, normal sinus rhythm with sinus arrhythmia, right axis deviation, rate 89, QTC 413 milliseconds [id number], Complete Assessment & Plan Assessment & Plan (1) Atypical chest pain: Code(s): R07.89 - Other chest pain Plan: Report of localized, nonexertional, chest discomfort prior to getting her menses that is worse with deep inspiration. Has been occur in the last few months. Not brought on by physical activity. Overall sounds atypical for angina. Also low cardiac risk with her young age and low risk factor profile. EKG done today showing normal sinus rhythm with sinus arrhythmia, no acute ST or T-wave abnormalities, rate 89. An echocardiogram done in February had shown normal EF and no regional wall motion abnormalities. For completeness will order an exercise stress test to evaluate for any ischemia or arrhythmia. Overall her symptoms sounds like it could be chest wall in nature. Discussed this with her. Cardiology follow-up in 6 weeks, sooner if needed. (2) Palpitations: Code(s): R00.2 - Palpitations Plan: Prior reports of heart palpitations like a quick beat in her chest, a pinching sensation and a fast heart rate. EKG done on 12/14/2022 showed sinus rhythm with sinus arrhythmia, heart rate 95. A Holter monitor was done on 02/28/2023 for 2 days which showed sinus Rhythm with average heart rate 85 beats per minute, no pauses or arrhythmia. An echocardiogram was done on 02/28/2023 showing EF 60%, no wall motion abnormalities and no valve abnormalities. EKG today shows normal sinus rhythm with sinus arrhythmia. She does report occasional heart palpitations but this is not her primary complaint today. Reviewed reduction in caffeinated beverages, increasing fluid intake, activity as tolerated all reviewed. (3) Abnormal echocardiogram findings without diagnosis: Code(s): R93.1 - Abnormal findings on diagnostic imaging of heart and coronary circulation Plan: Echo from above does show a finding of a 5 x5 structure posterior to the left ventricle. She then underwent a bubble study on 03/15/2023 which was not conclusive for a persistent SVC. She was then underwent a CT scan of the chest which showed no persistent left-sided SVC. 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 reviewed this result with patient in detail last visit. Offered reassurance. No further testing needed according to Dr. San. I previously gave copy of her CT scan report to her. (4) Elevated blood pressure, situational: Code(s): R03.0 - Elevated blood-pressure reading, without diagnosis of hypertension Plan: She says it is usually high in doctor's offices. Blood pressure elevated today, 160/90. She tells me that she just saw her PCP today and a new medication was ordered, labetalol. I suggested she start taking half of a tablet b.i.d. for a few days prior to starting the full dose of 100 mg b.i.d.. Periodically check her blood pressure to ensure it is not too low. If she tolerates this medication that can help with the heart palpitations as well as blood pressure control. Blood pressure will be rechecked at the time of her stress test and in her 6 week office follow-up. Plan Time spent on chart review, documentation, interview, assessment Orders: Orders CA stress test Today R00.2 - Palpitations, R03.0 - Elevated blood-pressure reading, without diagnosis of hypertension, R07.89 - Other chest pain Coding Level of Care Code Est Pt Level 4 (95410) Diagnoses Atypical chest pain R07.89 Palpitations R00.2 Abnormal echocardiogram findings without diagnosis R93.1 Elevated blood pressure, situational R03.0 CPT Codes EKG - CPT: [id number], Complete ([id number]) Time Spent (min) 28
== END 2023-08-28 16:18 | disposition home or self-care (01) ==
PROVIDERS: PCP Internal Medicine; Visit Provider Nurse Practitioner Family
DX: R07.89 Other chest pain (principal); R00.2 Palpitations; R93.1 Abnormal findings on diagnostic imaging of heart and coronary circulation; R03.0 Elevated blood-pressure reading, without diagnosis of hypertension
CPT/HCPCS: 93010; 99214

== ENCOUNTER 2023-09-22 19:07 | Emergency (ER) | payer MEDICAID, SELFPAY ==
[2023-09-22 19:31] VITALS: BP 146/88; PULSE 106; RESP 20; TEMP 37.1; O2SAT 98; BMI 36.6
--- NOTE | 2023-09-22 19:32 | ED.GENADULT ---
HPI - General Adult General Chief complaint: General Medical Stated complaint: High blood pressure/ Shaking Time Seen by Provider: 09/22/23 21:30 Source: patient and old records reviewed Mode of arrival: ambulatory Limitations: no limitations History of Present Illness HPI narrative: 28 yo female with PMH of hyperthyroidism, HTN, palpitations, atypical chest pain recently started on labetalol here with c/o having issues with BP medications and her PCP just started her on labetalol 100mg BID 2 weeks ago she is sensitive to meds so her event marketing assistant told her to start at 50mg BID for one week. Today she took 100mg and started to feel off and had anxiety and palpitations with L sided chest pain. She also missed her stress test for complete cardiac workup. She is going to call. The patient notes she checks her BP if she sees a high number she does panic and freaks out then it goes higher MD complaint: chest pain, HTN, anxiety Onset (ago): hour(s) (few) Location: chest Radiation: non-radiation Severity: moderate Quality: dull and constant Pain Consistency: intermittent Relieving factors: none Exacerbating factors: other (stress) Associated symptoms: chest pain and other (anxiety, palpitations) Treatments prior to arrival: none Related Data Home Medications ?Medication ?Instructions ?Recorded ?Confirmed fluticasone propionate 50 1 spray intranasal DAILY 10/23/20 08/28/23 mcg/actuation nasal spray,suspension (Flonase Allergy Relief) loratadine 10 mg capsule 10 mg PO DAILY 10/23/20 08/28/23 levothyroxine 75 mcg tablet 75 mcg PO DAILY 04/10/23 08/28/23 labetalol 100 mg tablet 100 mg PO BID 08/28/23 08/28/23 Previous Rx's ?Medication ?Instructions ?Recorded hydroxyzine HCl 25 mg tablet 25 mg PO BID PRN anxiety #20 tabs 09/22/23 Allergies Allergy/AdvReac Type Severity Reaction Status Date / Time No Known Drug Allergies Allergy Unknown NONE Verified 09/22/23 19:37 [NO KNOWN DRUG ALLERGIES] Apple (Diagnostic) Allergy Unknown shortness Uncoded 08/28/23 15:46 of breath ENVIRONMENTAL Allergy Unknown EYES RUNNY Uncoded 08/28/23 15:46 STUFFY kiwi, pears, dogs/cats, Allergy Unknown shortness Uncoded 08/28/23 15:46 season of breath Review of Systems Review of Systems: Constitutional : No Weight loss, No Fever, No Chills ENT/Mouth : No sore throat, No Rhinorrhea Eyes: No Eye Pain, No Swelling Cardiovascular : pos Chest Pain, pos SOB, no Dyspnea on Exertion, No Orthopnea, No Edema, No Palpitations Respiratory : No Cough, No Sputum Gastrointestinal : no Nausea, No Vomiting, No Diarrhea, No abdominal Pain Musculoskeletal : No joint pain, No Myalgias, No Joint Swelling Skin : No Skin Lesions, No rash Neuro : No Weakness, No Numbness, No Dizziness, No Headache Psych : pos Anxiety/Panic, No Depression All other systems reviewed and are negative [facility] Past Medical History Attestation statement: The following information was validated with the patient. Source: old records reviewed Medical History Obesity Vitamin D deficiency Multinodular goiter Subclinical hyperthyroidism Surgical History Hx of tonsillectomy Family History Family History Father Diabetes Mother Lyme disease Pre-diabetes HTN (hypertension) Social History Social History (Updated 09/22/23 @ 21:37 by Tanya Bryant DO) Alcohol intake: never Patient Tobacco Use Status: Never used Tobacco Physical Exam ED Vital Signs: Vital Signs - 24 hr 09/22/23 19:31 Temperature 98.7 F Pulse Rate 106 H Respiratory Rate 20 Blood Pressure 146/88 H Pulse Oximetry 98 Oxygen Delivery Method Room Air BMI result Body Mass Index 36.6 Appearance: Alert. Oriented X3. No acute distress. Eyes: Pupils equal, round and reactive to light. ENT: Pharynx normal. Neck: Normal inspection. Neck supple. CVS: Normal heart rate and rhythm. Pulses normal. Respiratory: No respiratory distress. Breath sounds normal. Abdomen: Soft and nontender. Skin: Skin warm and dry. Normal skin color. Normal skin turgor. Extremities: No lower extremity edema. No calf ttp Neuro: Oriented X 3. No motor deficit. No sensory deficit. Course Course Course Narrative: This is an RME: Additional HPI, ROS, PE not included below will be deferred to primary provider. Patient is a 28-year-old female presents emergency department Reports feeling tremulous, having high blood pressure readings, chest pain, throat tightness with onset of symptoms at 11:00 today. Reports that she was recently started on antihypertensive 1 week ago; labetalol. Does admit to having a history of similar symptoms associated with her elevated blood pressure aside from numbness to her hands which she is currently experiencing. Plan: Labs, EKG Medical Decision Making Medical Decision Making [facility] Narrative: 28 yo female with PMH of hyperthyroidism, HTN, palpitations, atypical chest pain recently started on labetalol now with feeling elevated BP and anxiety, palpitations, atypical chest pain after seeing higher readings at this time will obtain EKG, troponin x 1 given onset and atypical in nature - her TSH is normal as well. I believe her tachycardia is due to stress and anxiety she is not on OCPs and low risk for VTE. Will give dose of ativan and reassess. Her BP is already down without medications and just reassurance to 126/78. Anticipate DC home Differential Diagnosis Differential Diagnoses: The differential diagnosis associated with the presentation includes atypical chest pain, HTN, palpitations, stress Admission/Observation Consideration of admission/observation: Escalation of care including admission/observation considered work up negative stable for DC Lab Data [facility] Lab Attestation statement: I reviewed the patient's lab results. 09/22/23 19:51 09/22/23 19:51 Labs: Lab Results 09/22/23 Range/Units 19:51 WBC 8.0 (4.8-10.8) X10*3/uL RBC 4.98 (4.20-5.50) X10*6/uL Hgb 14.0 (12.0-16.0) g/dl Hct 42.1 (37.0-47.0) % MCV 84.5 (80.0-98.0) fL MCH 28.1 (27.0-33.0) pg MCHC 33.3 (31.0-35.0) g/dl RDW 11.9 (11.0-16.0) % Plt Count 304 (160-400) X10*3/uL MPV 9.7 (9.4-12.3) fL Immature Gran % (Auto) 0.4 (0.0-0.4) % Neut % (Auto) 72.9 (45-73) % Lymph % (Auto) 20.7 (20-40) % Motley % (Auto) 4.4 (2-11) % Eos % (Auto) 1.2 (0-4) % Baso % (Auto) 0.4 (0-2) % Lymph # (Auto) 1.7 (1.2-4.9) X10*3/uL Motley # (Auto) 0.4 (0.1-1.2) X10*3/uL Eos # (Auto) 0.1 (0.0-0.4) X10*3/uL Baso # (Auto) 0.0 (0.0-0.2) X10*3/uL Abs Immat Gran (auto) 0.03 (0.00-0.03) X10*3/uL Absolute Neuts (auto) 5.9 (2.0-8.3) x10*3/uL Absolute Nucleated RBC 0.000 (0.0-0.012) X10*3/uL Nucleated RBC % (auto) 0.0 (0.0-0.2) /100WBC PT 11.8 (11.1-13.3) SEC INR 1.0 (0.9-1.1) Sodium 137 (135-145) mmol/L Potassium 3.9 (3.3-5.1) mmol/L Chloride 103 (96-108) mmol/L Carbon Dioxide 22 (22-29) mmol/L Anion Gap 16 (12-20) BUN 8 L (9-16) mg/dL Creatinine 0.68 (0.5-1.4) mg/dL Estim Creat Clear Calc 136.4 Estimated GFR > 60 Random Glucose 102 (60-115) mg/dL Calcium 10.1 (8.4-10.2) mg/dL Total Bilirubin 0.8 (0.0-1.0) mg/dL AST 25 (5-31) U/L ALT 46 H (0-31) U/L Alkaline Phosphatase 108 (39-117) U/L Troponin I High Sens < 2.7 (<3.5-17.0) ng/L Total Protein 7.8 (6.5-8.0) g/dL Albumin 4.6 (3.5-5.0) g/dL TSH 1.10 (0.32-4.0) uIU/mL Influenza Type A (PCR) NEGATIVE (Negative) Influenza Type B (PCR) NEGATIVE (Negative) RSV RNA Qual (PCR) NEGATIVE (Negative) SARS-CoV-2 RNA (RT-PCR) NEGATIVE (Negative) Independent Interpretation I performed an independent interpretation of an: EKG Interpretation: Rate: 91 Rhythm: NSR Hardin: normal Normal P waves. Normal NORBERTO. incomplete RBBB ST T wave : inverted t wave III no MAYA, t wave inversions V1 qTC: normal prior studies: no sig change from priors The study has been interpreted contemporaneously by me. . Independent Historian Clinical information obtained from an independent historian. History obtained from or confirmed by: Parent External Record Review External record reviewed: Inpatient record and Office record Prescription Management I considered prescription management with: Other Discharge Plan Discharge Clinical Impression: Palpitations, Elevated blood pressure, situational, Atypical chest pain Patient Disposition: Home, Self-Care Instructions: Chest Pain (ED), Heart Palpitations (ED) Additional Instructions: return for worsening symptoms or concerns. talk to your event marketing assistant about outpatient stress test heart tests and thyroid tests are reassuring. Prescriptions: New hydroxyzine HCl 25 mg tablet 25 mg PO BID PRN (Reason: anxiety) Qty: 20 0RF No Action loratadine 10 mg capsule 10 mg PO DAILY fluticasone propionate [Flonase Allergy Relief] 50 mcg/actuation spray,suspension 1 spray intranasal DAILY Rx Instructions: administer into each nostril levothyroxine 75 mcg tablet 75 mcg PO DAILY labetalol 100 mg tablet 100 mg PO BID Print Language: Arabic
--- NOTE | 2023-09-22 19:35 | ECG_ITS ---
Test Reason : CHEST PAIN Blood Pressure : / mmHG Vent. Rate : 091 BPM Atrial Rate : 091 BPM P-R Int : 126 ms QRS Dur : 088 ms QT Int : 344 ms P-R-T Axes : 004 004 018 degrees QTc Int : 423 ms Normal sinus rhythm Normal ECG When compared with ECG of 28-AUG-2023 07:22, No significant change was found Referred By: Lucina Maldonado Electronically Signed By:Luis F Carlos
[2023-09-22 20:02] LABS: MANUAL DIFF FLAG NO
[2023-09-22 20:04] LABS: Basophils Percent Auto 0.4 % (0-2); Eosinophils Absolute Auto 0.1 X10*3/uL (0.0-0.4); Eosinophils Percent Auto 1.2 % (0-4); Hematocrit 42.1 % (37.0-47.0); Imm Gran Abs Auto 0.03 X10*3/uL (0.00-0.03); Imm Gran Pct Auto 0.4 % (0.0-0.4); Lymphocytes Absolute Auto 1.7 X10*3/uL (1.2-4.9); Lymphocytes Percent Auto 20.7 % (20-40); Mean Corpuscular HGB Conc 33.3 g/dl (31.0-35.0); Mean Corpuscular Hemoglobin 28.1 pg (27.0-33.0); Mean Corpuscular Volume 84.5 fL (80.0-98.0); Mean Platelet Volume 9.7 fL (9.4-12.3); Monocytes Absolute Auto 0.4 X10*3/uL (0.1-1.2); Monocytes Percent Auto 4.4 % (2-11); Neutrophils Absolute Auto 5.9 x10*3/uL (2.0-8.3); Neutrophils Percent Auto 72.9 % (45-73); Platelet Count 304 X10*3/uL (160-400); Red Blood Count 4.98 X10*6/uL (4.20-5.50); Red Cell Distribution Width 11.9 % (11.0-16.0)
[2023-09-22 20:09] LABS: Prothrombin Time 11.8 SEC (11.1-13.3)
[2023-09-22 20:24] LABS: Alanine Aminotransferase 46 U/L (0-31); Albumin Level 4.6 g/dL (3.5-5.0); Alkaline Phosphatase 108 U/L (39-117); Anion Gap 16 (12-20); Aspartate Amino Transferase 25 U/L (5-31); Bilirubin Total 0.8 mg/dL (0.0-1.0); Blood Urea Nitrogen 8 mg/dL (9-16); Calcium 10.1 mg/dL (8.4-10.2); Carbon Dioxide 22 mmol/L (22-29); Chloride 103 mmol/L (96-108); Creatinine Clr Calc Pharmacy 136.4; Estimated Glomerular Filt Rate > 60; Glucose Random 102 mg/dL (60-115); Potassium 3.9 mmol/L (3.3-5.1); Sodium 137 mmol/L (135-145); Total Protein 7.8 g/dL (6.5-8.0)
[2023-09-22 20:25] LABS: Troponin-I High Sensitivity < 2.7 ng/L (<3.5-17.0)
[2023-09-22 20:41] LABS: Influenza A PCR NEGATIVE (Negative); Influenza B PCR NEGATIVE (Negative); Resp Syncy Virus RNA Qual PCR NEGATIVE (Negative); SARS COV2 PCR INHOUSE NEGATIVE (Negative)
--- OUTSIDE RECORDS SUMMARY | 2023-09-22 21:36 | XMS_ITS | Continuity of Care Document ---
Author Organization [facility] Endocrinolo gy and Diabetes Address [address] [place] [address]- Care Team Providers Care Nursing Resident Name Role Phone Hyacinth Jang MD, Brenda Moody Primary Care Physici an En[place] [facility] [place] ACCT R [id number] Date(s): 04/10/23 - 05/17/23 [facility]ocrinology and Diabetes [address] [place] [address]- Attending Physician: Alis Matthews MD Referring Physician: Hyacinth Jang MD, Brenda Moody Allergies, Adverse Reactions, Alerts No Known Allergies Medications albuterol 5 mg/mL (0.5%) inhalation solution 0.5 mL = 2.5 mg, Inhalation, Every 2 hours, PRN for wheezing, # 20 mL, 0 Refills, Maintenance, 03/23/16 17:31:17, Solution Start Date: 03/23/16 Status: Ordered Eye Itch Relief 0.025% ophthalmic solution 1 drops, Eyes, Both, Every 8 hours, # 5 mL, 0 Refills, Maintenance, 12/29/21 14:31:00 EDT, Solution, Partial fill upon patient request if the prescription is for a schedule II opioid drug. Start Date: 12/29/21 Status: Ordered levothyroxine 75 mcg (0.075 mg) oral tablet 1 tablet = 75 mcg, By Mouth, Daily, # 30 tablet, 8 Refills, Maintenance, 02/23/23 13:38:00 EDT, Tablet, [facility]/pharmacy #[id number], Partial fill upon patient request if the prescription is for a schedule II opioid drug., 163, cm, 12/04/22 0:10:00 EDT, Height,... Start Date: 02/23/23 Stop Date: 11/20/23 Status: Ordered loratadine 10 mg oral tablet 10 mg, 1, tablet, By Mouth, Daily, # 30 tablet, Refills 0, Maintenance, 12/29/21 14:31:00 EDT, Partial fill upon patient request if the prescription is for a schedule II opioid drug. Start Date: 12/29/21 Status: Ordered ProAir HFA 90 mcg/inh inhalation aerosol with adapter 1, puffs, Inhalation, Every 4 hours, PRN, # 8.5 Gm, Refills 0, Maintenance, 03/23/16 17:30:27, Aerosol Start Date: 03/23/16 Status: Ordered SudoGest 30 mg oral tablet 1 tablet = 30 mg, By Mouth, Every 6 hours, PRN as needed for cold symptoms, 0 Refills, Maintenance,03/23/16 17:29:30, Tablet Start Date: 03/23/16 Status: Ordered Problem List Condition Confirmation Course Effective Dates Status Health St atus Informant Obese class II Confirmed Active Patient Care team information Care Team Personnel Name: Brenda Carreno MD Position: [facility] Outreach Member Role: PCP Address: Address: [address] [place] [address] [address] [place] [address]- Name: Kristin Jang [place] Position: [facility] Outreach Member Role: Lifetime Consulting Physician Care Team Related Persons Name: YAEL GRAVES Address: home [address] [facility] [address] Name: JUAN CARLOS KAYE Address: home [address] [place] [address]
--- OUTSIDE RECORDS SUMMARY | 2023-09-22 21:36 | XMS_ITS | Continuity of Care Document ---
Author Organization [facility] ter Address [address] [place] [address]- Care Team Providers Care Deflector Operator Name Role Phone Hyacinth Jang MD, Brenda Moody Primary Care Physici an [place] [facility] [place] [id number] Date(s): 03/24/23 - 04/28/[address] [address] Attending Physician: Thomas San MD Admitting Physician: Thomas San MD Referring Physician: Thomas San MD Allergies, Adverse Reactions, Alerts No Known Allergies [...] 8 Refills, Maintenance, 02/23/23 13:38:00 EDT, Tablet, [facility]/pharmacy #[id number], Partial fill upon patient request if the [...] Team Personnel Name: Brenda Carreno MD Position: [facility] Outreach Member Role: PCP Address: Address: [address] [place] [address] [address] [place] [address]- Name: Kristin Jang [place] Position: [facility] Outreach Member Role: Lifetime Consulting Physician Care Team Related Persons Name: YAEL GRAVES Address: home [address] [place] [address] Name: JUAN CARLOS KAYE Address: home [address] [place] [address]
--- OUTSIDE RECORDS SUMMARY | 2023-09-22 21:36 | XMS_ITS | Continuity of Care Document ---
Author Organization [facility] Endocrinolo gy and Diabetes Address [address] [place] [address]- Care Team Providers Care Professor Of Physics Name Role Phone Hyacinth Jang MD, Brenda Moody Primary Care Physici an [place] [facility] [place] 04/26/23 [facility] Endocrinology and Diabetes [address] [place] [address]- Allergies, Adverse Reactions, Alerts No Known Allergies [...] 8 Refills, Maintenance, 02/23/23 13:38:00 EDT, Tablet, [facility]/pharmacy #[id number], Partial fill upon patient request if the [...] Team Personnel Name: Brenda Carreno MD Position: [facility] Outreach Member Role: PCP Address: Address: [address] [place] [address] [address] [place] [address]- Name: Kristin Jang [place] Position: [facility] Outreach Member Role: Lifetime Consulting Physician Care Team Related Persons Name: YAEL GRAVES Address: home [address] [place] [address] Name: JUAN CARLOS KAYE Address: home [address] [place] [address]
--- OUTSIDE RECORDS SUMMARY | 2023-09-22 21:36 | XMS_ITS | Continuity of Care Document ---
Author Organization [facility] Endocrinolo gy and Diabetes Address [address] [place] [address]- Care Team Providers Care Database Designer Name Role Phone Hyacinth Jang MD, Brenda Moody Primary Care Physici an Encounter [facility] [place] Date(s): 04/06/23 - 05/06/23 [facility] Endocrinology and Diabetes [address] [place] [address]- Allergies, Adverse Reactions, Alerts No Known Allergies [...] 8 Refills, Maintenance, 02/23/23 13:38:00 EDT, Tablet, [facility]/pharmacy #[id number], Partial fill upon patient request if the [...] Team Personnel Name: Brenda Carreno MD Position: [facility] Outreach Member Role: PCP Address: Address: [address] [place] [address] [address] [place] [address]- Name: Kristin Jang [place] Position: [facility] Outreach Member Role: Lifetime Consulting Physician Care Team Related Persons Name: YAEL GRAVES Address: home [address] [place] [address] Name: JUAN CARLOS KAYE Address: home [address] [place] [address]
--- OUTSIDE RECORDS SUMMARY | 2023-09-22 21:36 | XMS_ITS | Continuity of Care Document ---
Author Organization [facility] Endocrinolo gy and Diabetes Address [address] [place] [address]- Care Team Providers Care Keymodule Assembly Supervisor Name Role Phone Hyacinth Jang MD, Brenda Moody Primary Care Physici an En[place] [facility] [place] Date(s): 03/27/23 - 04/26/23 [facility] Endocrinology and Diabetes [address] [place] [address] Allergies, Adverse Reactions, Alerts No Known Allergies [...] 8 Refills, Maintenance, 02/23/23 13:38:00 EDT, Tablet, [facility]/pharmacy #[id number], Partial fill upon patient request if the [...] Team Personnel Name: Brenda Carreno MD Position: [facility] Outreach Member Role: PCP Address: Address: [address] [place] [address] [address] [place] [address]- Name: Kristin Jang [place] Position: [facility] Outreach Member Role: Lifetime Consulting Physician Care Team Related Persons Name: YAEL GRAVES Address: home [address] [facility] [address] Name: JUAN CARLOS KAYE Address: home [address] [place] [address]
--- OUTSIDE RECORDS SUMMARY | 2023-09-22 21:36 | XMS_ITS | Continuity of Care Document ---
Author Organization [facility] ter Address [address] [place] [address]- Care Team Providers Care Canoe Inspector Name Role Phone Hyacinth Jang MD, Brenda Moody Primary Care Physici an Encounter [facility] [place] Date(s): 03/24/23 - 04/27/[address] [address]- Attending Physician: Mala Hedrick NP Admitting Physician: Mala Hedrick NP Referring Physician: Mala Hedrick NP Allergies, Adverse Reactions, Alerts No Known Allergies [...] 8 Refills, Maintenance, 02/23/23 13:38:00 EDT, Tablet, [facility]/pharmacy #[id number], Partial fill upon patient request if the [...] Team Personnel Name: Brenda Carreno MD Position: [facility] Outreach Member Role: PCP Address: Address: [address] [place] [address] [address] [place] [address]- Name: Kristin Jang [place] Position: [facility] Outreach Member Role: Lifetime Consulting Physician Care Team Related Persons Name: YAEL GRAVES Address: home [address] [place] [id number] Name: JUAN CARLOS KAYE Address: home [address] [place] [address]
--- OUTSIDE RECORDS SUMMARY | 2023-09-22 21:36 | XMS_ITS | Continuity of Care Document ---
Author Organization [facility] Endocrinolo gy and Diabetes Address [address] [place] [address]- Care Team Providers Care Doll Wig Maker Rooted Hair Name Role Phone Hyacinth Jang MD, Brenda Moody Primary Care Physici an Encounter [facility] Date(s): 02/27/23 - 03/29/23 [facility] Endocrinology and Diabetes [address] [place] [address] Attending Physician: Elaine Dodd Admitting Physician: Elaine Dodd Referring Physician: AdmtrElaine Allergies, Adverse Reactions, Alerts No Known Allergies [...] 8 Refills, Maintenance, 02/23/23 13:38:00 EDT, Tablet, [facility]/pharmacy #[id number], Partial fill upon patient request if the [...] Care team information Care Team Personnel Name: Hyacinth Jang MD, Brenda Moody Position: [facility] Outreach Member Role: PCP Address: Address: [address] [place] [address] [address] [place] [address]- Name: Kristin Jang [place] Position: [facility] Outreach Member Role: Lifetime Consulting Physician Care Team Related Persons Name: YAEL GRAVES Address: home [address] [place] [address] Name: JUAN CARLOS KAYE Address: home [address] [place] [address]
--- OUTSIDE RECORDS SUMMARY | 2023-09-22 21:36 | XMS_ITS | Continuity of Care Document ---
Author Organization [facility] Endocrinolo gy and Diabetes Address [address] [place] [address]- Care Team Providers Care Php Architect Name Role Phone Hyacinth Jang MD, Bernda Moody Primary Care Physici an Encounter [facility] [place] Date(s): 02/09/23 - 03/11/23 [facility] Endocrinology and Diabetes [address] [place] [address]- Allergies, Adverse Reactions, Alerts No Known Allergies [...] 8 Refills, Maintenance, 02/23/23 13:38:00 EDT, Tablet, [facility]/pharmacy #[id number], Partial fill upon patient request if the [...] Team Personnel Name: Brenda Carreno MD Position: [facility] Outreach Member Role: PCP Address: Address: [address] [place] [address] [address] [place] [address]- Name: Kristin Jang [place] Position: [facility] Outreach Member Role: Lifetime Consulting Physician Care Team Related Persons Name: YAEL GRAVES Address: home [address] [place] [address] Name: JUAN CARLOS KAYE Address: home [address] [place] [address]
--- OUTSIDE RECORDS SUMMARY | 2023-09-22 21:36 | XMS_ITS | Continuity of Care Document ---
Author Organization [facility] Endocrinolo gy and Diabetes Address [address] [place] [address]- Care Team Providers Care Commercial Solar Sales Consultant Name Role Phone Hyacinth Jang MD, Brenda Moody Primary Care Physici an [place] [facility] [place]s): 02/23/23 - 03/25/23 [facility] Endocrinology and Diabetes [address] [place] [address] Allergies, Adverse Reactions, Alerts No Known Allergies [...] Refills, Maintenance, 02/23/23 13:38:00 EDT, Tablet, [facility]/pharmacy #[id number], Partial fill upon patient request if the [...] Team Personnel Name: Brenda Carreno MD Position: [facility] Outreach Member Role: PCP Address: Address: [address] [place] [address] [address] [place] [address]- Name: Kristin Jang [place] Position: [facility] Outreach Member Role: Lifetime Consulting Physician Care Team Related Persons Name: YAEL GRAVES Address: home [address] [place] [address] Name: JUAN CARLOS KAEY Address: home [address] [place] [address]
--- OUTSIDE RECORDS SUMMARY | 2023-09-22 21:36 | XMS_ITS | Continuity of Care Document ---
Author Organization [facility] Endocrinolo gy and Diabetes Address [address] [place] [address]- Care Team Providers Care Biometric Technician Name Role Phone Hyacinth Jang MD, Brenda Moody Primary Care Physici an En[place] [facility] [place] [id number] Date(s): 04/17/23 - 05/17/23 [facility] Endocrinology and Diabetes [address] [place] [address] Attending Physician: Elaine Dodd Admitting Physician: Admtr, Elaine Referring Physician: Admtr, Ar8 Allergies, Adverse Reactions, Alerts No Known Allergies [...] 8 Refills, Maintenance, 02/23/23 13:38:00 EDT, Tablet, [facility]/pharmacy #[id number], Partial fill upon patient request if the [...] CENTER Outreach Member Role: PCP Address: Address: [address] [place] [address] [address] [place] [address]- Name: Kristin Jang [place] Position: [facility] Outreach Member Role: Lifetime Consulting Physician Care Team Related Persons Name: YAEL GRAVES Address: home [address] [place] [address] Name: JUAN CARLOS KAYE Address: home [address] [place] [address]
--- OUTSIDE RECORDS SUMMARY | 2023-09-22 21:36 | XMS_ITS | Continuity of Care Document ---
Author Organization [facility] Endocrinolo gy and Diabetes Address [address] [place] [address]- Care Team Providers Care Strip Deburrer Name Role Phone Hyacinth Jang MD, Brenda Moody Primary Care Physici an [place] [facility] [place] 03/31/23 - 04/30/23 [facility] Endocrinology and Diabetes [address] [place] [address] Allergies, Adverse Reactions, Alerts No Known Allergies [...] Refills, Maintenance, 02/23/23 13:38:00 EDT, Tablet, [facility]/pharmacy #[id number], Partial fill upon patient request if the [...] Team Personnel Name: Brenda Carreno MD Position: [facility] Outreach Member Role: PCP Address: Address: [address] [place] [address] [address] [place] [address]- Name: Kristin Jang [place] Position: [facility] Outreach Member Role: Lifetime Consulting Physician Care Team Related Persons Name: YAEL GRAVES Address: home [address] [place] [address] Name: JUAN CARLOS KAYE Address: home [address] [place] [address]
--- OUTSIDE RECORDS SUMMARY | 2023-09-22 21:36 | XMS_ITS | Continuity of Care Document ---
Author Organization [facility] ter Address [address] [place] [address]- Care Team Providers Care Electric Well Logging Operator Name Role Phone Brenda Carreno MD Primary Care Physici an Encounter [facility] Date(s): 07/13/23 - 07/14/[address] [address]- Encounter Diagnosis Left flank pain(Final) - 07/14/23 Dizzinesses(Final) - 07/14/23 Discharge Disposition: A-D/C Home Attending Physician: Torsten Hawk MD Admitting Physician: Torsten Hawk MD Referring Physician: Not on Staff, Referring MD Allergies, Adverse Reactions, Alerts No Known [...] opioid drug. Start Date: 12/29/21 Status: Ordered ibuprofen 600 mg oral tablet 600 mg, 1, tablet, By Mouth, Every 6 hours, # 30 tablet, Refills 0, Tot. Refills 0, Maintenance, 07/13/23 23:44:00 EST, Route to Pharmacy Electronically, [facility]/pharmacy #[id number], Partial fill upon patientrequest if the prescription is for a schedule II op... Start Date: 07/13/23 Status: Ordered levothyroxine 75 mcg (0.075 mg) oral tablet 1 tablet = 75 mcg, By Mouth, Daily, # 30 tablet, 8 Refills, Maintenance, 02/23/23 13:38:00 EDT, Tablet, [facility]/pharmacy #[id number], Partial fill upon patient request if the [...] 17:29:30, Tablet Start Date: 03/23/16 Status: Ordered Valium 5 mg oral tablet 5 mg, 1, tablet, By Mouth, 3 times a day, PRN, Do not drive when taking this medication, # 12 tablet, Refills 0, Tot. Refills 0, Maintenance, Pain , Moderate, 07/13/23 23:44:00 EST, Route to PharmacyElectronically, [facility]/pharmacy #[id number], Partial fill up... Start Date: 07/13/23 Status: Ordered Problem List Condition Confirmation Course Effective Dates Status Health St atus Informant Obese class II Confirmed Active Results Radiology Reports * Exam Date Time Procedure Performing Provider Status 07/13/23 8:[address] Abd/Pelvis W/ IV Contrast Only Colon , Denisha; Auth (Verified) Notes: (CT Abd/Pelvis W/ IV Contrast Only) Reason For Exam: LLQ abdominal pain;Other: RESULT: CT Abd/Pelvis W/ IV Contrast Only CT Abd/Pelvis W/ IV Contrast Only Hx of Present Illness: felt dizzy this morning with left flank pain,; Reason: Other:; LLQ abdominalpain; Clinical Question(s): Diverticulitis; Order Comment: TECHNIQUE: Spiral CT through the abdomen and pelvis with IV contrast formatted in 3 planes. 100 cc of Omnipaque 300 was administered intravenously. This study was performed without oral contrast. Weight-based protocol using automatic tube modulation was used to optimize exposure parameters. COMPARISON: None. FINDINGS: [employer] View Findings, Lines and Tubes: None. Visualized Chest: Lung bases are clear. Small hiatal hernia. No pleural effusion. The heart is normal in size. No pericardial effusion. Diaphragm: Normal. Liver: Normal. Gallbladder: No CT evidence of gallbladder pathology. Bile ducts: No biliary ductal dilation. Spleen: Normal. Pancreas: Normal. Adrenal glands: Normal. Kidneys and ureters: No hydronephrosis, or suspicious masses. 2 mm in the inferior pole collecting system of the right kidney. Bladder: Normal. Reproductive organs: Unremarkable. Stomach, small bowel, and large bowel: Normal. Appendix: Normal. Peritoneum and retroperitoneum: No ascites or pneumoperitoneum. No omental or mesenteric lesions. Lymph nodes: No enlarged lymph nodes. Blood vessels: Normal. No aneurysm. No evidence of venous thrombosis. Abdominal and pelvic wall: Unremarkable. Bones: No acute abnormality. IMPRESSION: Unremarkable CT of the abdomen and pelvis. No evidence of colitis or diverticulitis. 2 mm nonobstructive stone within the inferior pole collection system of the right kidney. WSN: [id number] Ordering Physician: Torsten Hawk Dictated By: May Mendez MD Dictated Date/Time: 07/13/23 8:17 pm Reviewed By: May Mendez MD Signed By: May Mendez MD Signed Date/Time: 07/13/23 8:17 pm Transcribed By: DAVE Transcribed Date/Time: 07/13/23 8:15 pm Vital Signs Most recent to oldest [Reference Range]: 1 2 3 Height 163 cm (07/13/23 9:55 PM) 163 cm (07/13/23 6:57 PM) 163 cm (07/13/23 2:39 PM) Weight 98 kg (07/13/23 9:55 PM) 98 kg (07/13/23 6:57 PM) 98 kg (07/13/23 2:39 PM) Oxygen Saturation [94-100 %] 100 % (07/13/23 11:57 PM) 100 % (07/13/23 9:55 PM) 100 % (07/13/23 7:21 PM) Pulse Rate [55-90 bpm] 81 bpm (07/13/23 11:57 PM) 76 bpm (07/13/23 9:55 PM) 129 bpm *H* (07/13/23 7:21 PM) Body Mass Index [18.5-24.99 kg/m2] 36.89 kg/m2 *>HHI* (07/13/23 9:55 PM) 36.89 kg/m2 *>HHI* (07/13/23 2:39 PM) Blood Pressure [90-138/55-84 mm Hg] 118/60mm Hg (07/13/23 11:57 PM) 130/76mm Hg (07/13/23 9:55 PM) 149/82mm Hg *H* (07/13/23 7:21 PM) Respiratory Rate [16-30 br/min] 16 br/min (07/13/23 11:57 PM) 16 br/min (07/13/23 9:55 PM) 19 br/min (07/13/23 7:21 PM) Temperature [96.8-100.4 DegF] 98.3 DegF (07/13/23 11:57 PM) 98.2 DegF (07/13/23 9:55 PM) 97.8 DegF (07/13/23 7:21 PM) Mode of Delivery (Oxygen) Room air (07/13/23 11:57 PM) Room air (07/13/23 9:55 PM) Room air (07/13/23 7:21 PM) Blood pressure sites Arm, right (07/13/23 11:57 PM) Arm, right (07/13/23 9:55 PM) Temperature Route Oral (07/13/23 11:57 PM) Oral (07/13/23 9:55 PM) Oral (07/13/23 7:21 PM) Dry Weight 98 kg (07/13/23 9:55 PM) 98 kg (07/13/23 6:57 PM) 98 kg (07/13/23 2:39 PM) Weight Obtained Via Patient/family state d (07/13/23 2:39 PM) Dry Weight Obtained Via Patient/family s tated (07/13/23 2:39 PM) EKG study * Event Display: ECG 12-Lead Authored Date: Please click on pdf link to open report * Event Display: ECG 12-Lead Authored Date: [id number] Ventricular Rate: 105 BPM Atrial Rate: 105 BPM P-R Interval: 128 ms QRS Duration: 80 ms Q-T Interval: 346 ms QTC Calculation(Bazett): 457 ms P [place]: 31 degrees R [place]: 28 degrees T [place]: 36 degrees Sinus tachycardia Otherwise normal ECG No previous ECGs available Confirmed by SEVERIANO DE LA CRUZ ([id number]) on 07/14/2023 7:50:56 AM Bonneau: SEVERIANO DE LA CRUZ Note * Ni BROUSSARD, Nichelle Vallejo: PERFORM Event Display: Patient Education Leaflets Authored Date: [id number] Flank Pain with Uncertain Cause ?? [id number] Flank Pain with Uncertain Cause The flank is the area between your upper belly (abdomen) and your back. Pain there is often caused by a problem with your kidneys. It might be a kidney infection or a kidney stone. Other causes of flank pain include spinal arthritis, a pinched nerve from a back injury, a rib injury, a bruise, a back muscle strain, inflammation, or spasm. The cause of your flank pain is not certain. You may need other tests. Home care Follow these tips when caring for yourself at home: ??? You may use acetaminophen or ibuprofen to control pain, unless your healthcare provider prescribed another medicine. If you have chronic liver or kidney disease, talk with your provider before taking these medicines. Also talk with your provider first if you???ve ever had a stomach ulcer or digestive bleeding. ??? If the pain is coming from your muscles, you may get relief with ice or heat. During the first 2 days after the injury, put an ice pack on the painful area for 20 minutes every 2 to 4 hours. This will reduce swelling and pain. A hot shower, hot bath, or heating pad works well for a muscle spasm. You can start with ice, then switch to heat after 2 days. You might find that alternating ice and heat works well. Use the method that feels the best to you. ?? Follow-up care Follow up with your healthcare provider if your symptoms don???t get better over the next few days. ?? When to seek medical advice Call your healthcare provider right away??if any of these happen: ??? Repeated vomiting ??? Fever of 100.4??F (38??C) or higher, or as directed by your healthcare provider ??? Chills ??? Flank pain that gets worse ??? Pain that spreads to the front of your belly (abdomen) ??? Dizziness, weakness, or fainting ??? Blood in your urine ??? Burning feeling when you urinate or the need to urinate often??? Pain in one of your legs that gets worse ??? Numbness or weakness in a leg ?? Last Reviewed Date: 2021 ?? 2694-0086 [employer]. All rights reserved. This information is not intended as a substitute for professional medical care. Always follow your healthcare professional's instructions. ?? Patient Care team information Care Team Personnel Name: Brenda Carreno MD Position: [facility] Outreach Member Role: PCP Address: Address: [address] [place] [address] [address] [place] [address]- Name: Kristin Jang [place] Position: [facility] Outreach Member Role: Lifetime Consulting Physician Care Team Related Persons Name: YAEL GRAVES Address: home [address] [place] [address] Name: JUAN CARLOS KAYE Address: home [address] [place] [address]
[2023-09-22 21:38] VITALS: BP 126/78; PULSE 107; RESP 16; TEMP 36.6; O2SAT 98
[2023-09-22 21:42] LABS: Appearance Urine Clear; Color Urine Yellow; Glucose Urine UA Negative (Negative); Leukocyte Esterase Urine Negative (Negative); Nitrite Urine Negative (Negative); PH 6.5 (5.0-9.0); Specific Gravity - Urine <= 1.005 (1.005-1.025); Urine Blood Negative (Negative); Urine Ketones Negative (Negative); Urine Protein Negative (Neg-Trace)
[2023-09-22 22:22] VITALS: BP 127/71; PULSE 72; RESP 16; TEMP 36.6; O2SAT 97
[2023-09-22 22:29] VITALS: BP 127/71; PULSE 72; RESP 16; TEMP 36.6; O2SAT 97
== END 2023-09-22 22:30 | disposition home or self-care (01) ==
PROVIDERS: Nurse Practitioner Family; Emergency Provider Emergency Medicine; PCP Internal Medicine
DX: R00.2 Palpitations (principal); I10 Essential (primary) hypertension; R07.89 Other chest pain; Z79.899 Other long term (current) drug therapy
CPT/HCPCS: 0241U; 36415; 80053; 81003; 84443; 84484; 85025; 85610; 93005; 99283; 99284

== ENCOUNTER → 2023-09-22 19:35 | Outpatient (BNV) | payer MEDICAID, SELFPAY | PROVIDERS: Emergency Provider Emergency Medicine; PCP Internal Medicine; Visit Provider Internal Medicine Cardiovascular Disease | DX: R07.9 Chest pain, unspecified (principal) | CPT/HCPCS: 93010 ==

== ENCOUNTER 2024-03-12 10:29 | Outpatient (AMB) | payer MEDICAID, SELFPAY ==
[2024-03-12 10:34] VITALS: BP 132/78; PULSE 93; O2SAT 99; BMI 37.3
--- NOTE | 2024-03-12 10:34 | A.OFFVIS_ITS ---
Vital Signs 03/12/24 10:34 Height 5 ft 4 in Weight 217 lb 2.485 oz BMI 37.3 BP 132/78 Blood Pressure Location Rt brachial Position Sitting Pulse 93 Pulse Source Doppler Pulse Oximetry (%) 99 Oxygen Delivery Method Room Air Intake Visit Reasons: asthma Allergies No Known Drug Allergies [NO KNOWN DRUG ALLERGIES] Allergy (Unknown, Verified 09/22/23 19:37) NONE Apple (Diagnostic) Allergy (Unknown, Uncoded 08/28/23 15:46) shortness of breath ENVIRONMENTAL Allergy (Unknown, Uncoded 08/28/23 15:46) EYES RUNNY STUFFY kiwi, pears, dogs/cats, season Allergy (Unknown, Uncoded 08/28/23 15:46) shortness of breath HPI HPI asthma: Details: 28-year-old lady, nonsmoker, with underlying asthma since 9 years of age, previously controlled on Flovent and albuterol MDI, with recent lab sent control secondary to not being able to get her Flovent. Denies acute exacerbation. Patient does have underlying history of asthma in her father. She denies exposure to industrial dusts. Patient does complain of mild environmental allergies. [facility] Medical History Obesity Vitamin D deficiency Multinodular goiter Subclinical hyperthyroidism Surgical History Hx of tonsillectomy Family History Father Diabetes Mother Lyme disease Pre-diabetes HTN (hypertension) Social History Alcohol intake: never Patient Tobacco Use Status: Never used Tobacco Review of Systems Const Denies daytime sleepiness, Denies excessive sweating, Denies fatigue, Denies fever(s), Denies lethargy, Denies malaise, Denies night sweats, Denies snoring and Denies weight loss Eyes Denies blurry vision and Denies itchy eyes ENT Denies nasal congestion, Denies post nasal drip, Denies sinus pain, Denies sinus pressure and Denies other ( Thrush) Card Denies chest pain, Denies pedal edema, Denies dyspnea, Denies orthopnea and Denies paroxysmal nocturnal dyspnea Resp Denies cough, Denies hemoptysis, Denies excessive phlegm production, Denies dyspnea, Denies snoring and Denies wheezing GI Denies abdominal pain and Denies heartburn Musc Denies myalgias, Denies arthralgias and Denies joint swelling Skin/Breast Denies rash Neuro Denies memory loss and Denies seizure-like activity Psych Denies abnormal sleep pattern, Denies anxiety and Denies memory loss Endo Denies excessive sweating, Denies fatigue and Denies heat intolerance Blayne/Lymph Denies easy bruising Aller/Immun Denies itchy eyes, Denies seasonal rhinorrhea and Denies wheezing Physical Exam Vital Signs: Last Vital Signs Pulse 93 03/12/24 10:34 BP 132/78 03/12/24 10:34 Pulse Ox 99 03/12/24 10:34 Oxygen Delivery Method Room Air 03/12/24 10:34 BMI result Body Mass Index 37.3 Const General: no acute distress and alert Nutritional Appearance: obese Orientation/consciousness: Other orientation findings ( oriented) HEENT Head: Yes atraumatic Eyes General: appearance normal, both eyes and all related structures Sclerae: sclerae normal EOM: EOMs intact bilaterally Neck Neck: Yes supple Lymphatic: no lymphadenopathy noted Resp Effort & Inspection: normal respiratory effort and no use of accessory muscles Auscultation: clear to auscultation bilaterally Cardio Rate: regular rate Rhythm: regular rhythm Heart sounds: no gallops, no murmurs and no rubs Skin General skin exam: other ( warm) Extrem General: No clubbing, No cyanosis and No edema Assessment & Plan Assessment & Plan (1) Asthma: Code(s): J45.909 - Unspecified asthma, uncomplicated Category: Medical Plan: likely at least moderate persistent, suboptimally controlled off ICS. Restart generic Flovent. Continue albuterol MDI and duo nebs as needed. Will obtain full PFT. (2) Environmental allergies: Code(s): Z91.09 - Other allergy status, other than to drugs and biological substances Category: Medical Plan: Reasonably controlled on as needed Flonase and loratadine. Continue current regimen. Orders: Orders PFT pulmonary function test Today J45.909 - Unspecified asthma, uncomplicated Medications: New ipratropium-albuterol 0.5 mg-3 mg(2.5 mg base)/3 mL 3 mL inhalation Q4-6H PRN 180 mL 6RF wheezing albuterol sulfate 90 mcg/actuation (Ventolin HFA) 2 puffs inhalation Q6H PRN 1 ea 6RF wheezing fluticasone propionate 110 mcg/actuation 2 puffs inhalation BID 12 grams 6RF Coding Level of Care Code New Pt Level 4 (71777) Diagnoses Asthma J45.909 Environmental allergies Z91.09
== END 2024-03-12 10:51 | disposition home or self-care (01) ==
PROVIDERS: PCP Internal Medicine; Referring Provider Internal Medicine; Visit Provider Internal Medicine Pulmonary Disease
DX: J45.909 Unspecified asthma, uncomplicated (principal); Z91.09 Other allergy status, other than to drugs and biological substances
CPT/HCPCS: 99204

== ENCOUNTER → 2024-03-12 10:29 | Outpatient (BNVA) | payer MEDICAID, SELFPAY | PROVIDERS: PCP Internal Medicine; Visit Provider Internal Medicine Pulmonary Disease | DX: J45.909 Unspecified asthma, uncomplicated (principal); Z91.09 Other allergy status, other than to drugs and biological substances | CPT/HCPCS: 99202 ==

== ENCOUNTER 2024-04-24 08:03 | Outpatient (REF) | payer MEDICAID, SELFPAY ==
--- NOTE | 2024-04-24 08:06 | PFT_ITS ---
Flows: FEV1: 94 % of predicted at 3.01 L FVC: 95 % of predicted at 3.62 L FEV1/FVC: 83 % Bronchodilator response: Absent Volumes: Total lung capacity: 92 % of predicted at 4.75 L Residual volume: 105 % of predicted at 1.23 L Slow vital capacity: 80 % of predicted at 3.52 L Expiratory reserve volume: 0 % of predicted at 0 L Diffusion capacity: Normal Impression: No obstructive or restrictive ventilatory defect. No bronchodilator response. Decreased expiratory reserve volume suggests extrathoracic restriction likely secondary to abdominal obesity. MTDD
== END 2024-04-24 08:04 | disposition home or self-care (01) ==
LOC: HO.RESP 08:03
PROVIDERS: PCP Internal Medicine; Visit Provider Internal Medicine Pulmonary Disease
DX: J45.909 Unspecified asthma, uncomplicated (principal)
CPT/HCPCS: 94010; 94640; 94727; 94729

== ENCOUNTER → 2024-04-24 08:06 | Outpatient (BNV) | payer MEDICAID, SELFPAY | PROVIDERS: PCP Internal Medicine; Visit Provider Internal Medicine Pulmonary Disease | DX: J45.909 Unspecified asthma, uncomplicated (principal) | CPT/HCPCS: 94060; 94727; 94729 ==

== ENCOUNTER 2024-05-20 10:51 | Outpatient (REF) | payer MEDICAID, SELFPAY ==
[2024-05-20 11:44] LABS: MANUAL DIFF FLAG NO
[2024-05-20 11:47] LABS: Basophils Percent Auto 0.5 % (0-2); Eosinophils Absolute Auto 0.1 X10*3/uL (0.0-0.4); Eosinophils Percent Auto 1.4 % (0-4); Hematocrit 44.5 % (37.0-47.0); Hemoglobin 14.6 g/dl (12.0-16.0); Imm Gran Abs Auto 0.02 X10*3/uL (0.00-0.03); Imm Gran Pct Auto 0.3 % (0.0-0.4); Lymphocytes Absolute Auto 1.9 X10*3/uL (1.2-4.9); Lymphocytes Percent Auto 23.8 % (20-40); Mean Corpuscular HGB Conc 32.8 g/dl (31.0-35.0); Mean Corpuscular Hemoglobin 28.2 pg (27.0-33.0); Mean Corpuscular Volume 85.9 fL (80.0-98.0); Mean Platelet Volume 10.1 fL (9.4-12.3); Monocytes Absolute Auto 0.5 X10*3/uL (0.1-1.2); Monocytes Percent Auto 5.8 % (2-11); Neutrophils Absolute Auto 5.4 x10*3/uL (2.0-8.3); Neutrophils Percent Auto 68.2 % (45-73); Platelet Count 302 X10*3/uL (160-400); Red Blood Count 5.18 X10*6/uL (4.20-5.50); Red Cell Distribution Width 12.4 % (11.0-16.0); White Blood Count 7.9 X10*3/uL (4.8-10.8)
[2024-05-20 12:51] LABS: Anion Gap 12 (12-20); Blood Urea Nitrogen 8 mg/dL (9-16); Calcium 9.7 mg/dL (8.4-10.2); Carbon Dioxide 28 mmol/L (22-29); Chloride 104 mmol/L (96-108); Estimated Glomerular Filt Rate > 60; Glucose Random 96 mg/dL (60-115); Potassium 3.5 mmol/L (3.3-5.1); Sodium 140 mmol/L (135-145)
[2024-05-20 13:13] LABS: TSH reflex Free T4 1.47 uIU/mL (0.32-4.0); Vitamin D 25-OH Total 26.5 ng/mL (>30)
== END 2024-05-20 10:52 | disposition home or self-care (01) ==
LOC: HO.HHCL 10:51
PROVIDERS: Visit Provider Internal Medicine
DX: R53.83 Other fatigue (principal)
CPT/HCPCS: 36415; 80048; 82306; 84443; 85025

== ENCOUNTER 2024-11-18 | Outpatient (REF) | payer MEDICAID, SELFPAY ==
[2024-11-22 11:12] LABS: HPV Genotype 16 Negative (Negative); HPV High Risk Negative (Negative)
[2024-11-22 11:13] LABS: HPV Genotype 18 Negative (Negative)
--- OUTSIDE RECORDS SUMMARY | 2025-01-07 09:00 | XMS_ITS | Clinical Summary ---
Author Organization [facility] Address [address] [place] [address] Phone Care Team Providers Care Hoof And Shoe Inspector Name Role Phone Brenda Carreno MD Primary Care Provide r Encounters Date Type Department Care Team Description 11/27/2024 8:15 AM EDT Consult Orthopedic Surgery [facility] [address] [phone] Tim Whitehead DPM Verruca plantaris (Primary Dx); Corns and callosities from Last 3 Months Surgical History Surgery Date Site/Laterality Comments TONSILLECTOMY PROCEDURE: HISTORICAL TONSILLECTOMY OTHER SURGICAL HISTORY PROCEDURE: HYSTEROSCOPY, DIAGNOSTIC OTHER SURGICAL HISTORY PROCEDURE: LA DILATION & CURETTAGE DX&/THER NONOBSTETRIC Medical History [...] Upcoming Encounters Date Type Department Care Team ([facility] st Contact Info) Description 01/07/2025 1:45 PM EDT Office Visit Orthopedic Surgery [facility] [address] [phone] Tim Whitehead DPM [address] [phone] Health Maintenance Due Date Last Done Comments Hepatitis B Vaccines (1 of 3 - 19+ 3-dose series) 2012 COVID-19 Vaccine (2 - 2023- season) 2024 01/15/2021 Depression Screening 06/12/2024 HIV Screening 09/20/2024 Hepatitis C Screening 09/20/2024 Social Influencers of Health Screening 09/20/2024 Hypertension/CHF/CAD Annual BMP Blood Test 11/27/2024 Influenza Vaccine (#1) 2025 , 03/22/2023, 05/17/2021, Additional history exists Cholesterol Screening (Lipid Panel) 09/09/2026 09/09/2021 Cervical Cancer Screening: Pap Smear 11/19/2027 11/18/2024 DTaP,Tdap,and Td Vaccines (3 - Td or Tdap) 08/06/2029 08/06/2019, 04/10/2017 Pneumococcal Vaccine: Pediatrics (0 to 5 Years) and At-Risk Patients (6 to 49 Years) Completed 01/19/2024 HIB Vaccines Aged Out [...] topic Insurance MEDICAID - [place] Care Teams Hoof And Shoe Inspector Relationship Specialty Start Date End Date Brenda Carreno MD [address] [place] [phone] PCP - General Internal Medicine 09/20/24
--- OUTSIDE RECORDS SUMMARY | 2025-01-07 09:00 | XMS_ITS | Encounter Summary ---
Author Organization [employer] Address [address] [place] [address] [address] [place] [address] Care Team Providers Care Customer Account Representative Name Role Phone Brenda Carreno MD Primary Care Provide r Reason for Visit * Reason Comments Med Refill Encounter Details Date Type Department Care Team ([facility] st Contact Info) Description 09/21/2023 Refill [facility] [address] [place], [place] [phone] Brenda Carreno MD [address] [place], [place] [phone] Seasonal allergic rhinitis due to pollen Social [...] Care Team (Late st Contact Info) Description 01/20/2025 9:15 AM EDT Office Visit [facility] [address] [place] [phone] Brenda Carreno MD [address] [place] [phone] documented as of this encounter Visit Diagnoses Diagnosis Seasonal allergic rhinitis due to pollen documented in this encounter Additional Health Concerns Assessment Noted Time PHQ-9 Depression Total Score: 2 11/22/19 23 9:22 AM EDT documented as of this encounter Care Teams Customer Account Representative Relationship Specialty Start Date End Date Brenda Carreno MD [address] [place] [phone] PCP - General Family Medicine 02/21/18 documented as of this encounter
--- OUTSIDE RECORDS SUMMARY | 2025-01-07 09:00 | XMS_ITS | Clinical Summary ---
Author Organization [facility] Address [address] [place] [address] Care Team Providers Care Pin Or Clip Fastener Name Role Phone Unavailable Primary Care Provider [...] Fruit Extracts 07/11/2022 Pear 11/21/2022 Pineapple 11/21/2022 [place] 11/21/2022 Medications blood pressure monitor Use 1 Kit as directed 2 to 3 (two to three) times daily as needed for other reason (BP) 3 Active albuterol HFA 90 mcg/actuation inhaler Inhale 2 Puffs into the lungs every 6 (six) hours as needed 4 Active fluticasone (FLONASE) 50 mcg/actuation nasal spray Place 1 [place] in both nostrils once daily 4 Active [...] ons:Moderate episode of recurrent major depressive disorder ([facility]) Take 1 Capsule by mouth 3 (three) times daily as needed for anxiety for up to 30 days 90 Capsule 1 5 Active Active Problems Problem Noted Date Diagnosed Date Class 2 obesity 07/11/2024 Premenstrual dysphoric syndrome 03/22/2024 Moderate persistent asthma without complication ([facility]) 01/19/2024 Other constipation 01/19/2024 Other chest pain 08/11/2023 Shortness of breath 08/11/2023 Class 2 severe obesity with serious comorbidity and body mass index (BMI) of 36.0 to 36.9 in adult ([facility]) 03/22/2023 Primary hypertension 03/22/2023 Abnormal finding on EKG 12/16/2022 Elevated blood pressure reading 12/16/2022 Heat stroke 12/16/2022 Discharge from nipple 12/15/2022 Fatigue 12/15/2022 Backache 12/15/2022 Pelvic pain 11/22/2022 Encounter for screening and preventative care Acquired hypothyroidism 07/11/2022 Anxiety 07/11/2022 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 Medication: 30-day [...] of consistent follow-up care. Mild intermittent asthma ([facility]) 04/10/2017 Immunizations Immunization Administration Dates Next Due Flu, Multi Dose 0.5 ML 03/07/2018 Flu, Preservative Free 03/22/2023,2020,08/22/2019,2016 PNEUMOCOCCAL CONJUGATE PCV 2 0 (Prevnar 20) 01/19/2024 TDAP 08/06/2019,04/10/2017 Family History Medical History [...] Cervical Cancer Screening 2014 Pap Smear 2014 [id number] () 02/11/2024 021 Alcohol and Drug Screen [...] Discontinued Vaginal Pap Discontinued Vulvoscopy Discontinued Insurance ON LICENSE OF [facility] [place] MEDICAID
== END 2024-11-18 00:01 | disposition home or self-care (01) ==
LOC: HO.HHCLNP
PROVIDERS: Visit Provider Advanced Practice Midwife
DX: Z13.89 Encounter for screening for other disorder (principal)
CPT/HCPCS: 87626; 88175

== ENCOUNTER 2024-11-18 16:12 | Outpatient (REF) | payer MEDICAID, SELFPAY ==
--- OUTSIDE RECORDS SUMMARY | 2024-11-18 17:41 | XMS_ITS | Encounter Summary ---
Author Organization [employer] Address [address] [place] [address] [address] [place] [address] Care Team Providers Care Ramp And Cargo Supervisor Name Role Phone Brenda Carreno MD Primary Care Provide r Reason for Visit * Reason Comments Med Refill Encounter Details Date Type Department Care Team ([facility] st Contact Info) Description 09/21/2023 Refill [facility] [address] [place], [place] [phone] Brenda Carreno MD [address] [place], [place] [phone] Seasonal allergic rhinitis due to pollen Social History Tobacco Use Types Packs/Day Years Used Date Smoking Tobacco: Never Smokeless Tobacco: Never Alcohol Use Standard Drinks/Week Comments Never 0 (1 standard drink = 0.6 oz pur e alcohol) Depression Answer Date Recorded Patient Health Questionnaire-9 Score 2 11/21/2022 Housing Stability Answer Date Recorded What is your housing situation today? I have pedro pardo 04/05/[address] you li ve. Do you have problems with any of the following? None of the above 04/05/2023 Food Insecurity Answer Date Recorded Within the past 12 months, y ou worried that your food would run out before you got money to buy more: Never True 04/05/2023 Within the past 12 months,th e food you bought just didn't last and you didn't have enough money to get more: Never True Transportation Answer Date Recorded In the past 12 months, has l ack of transportation kept you from medical appts, meetings, work or from getting things needed for daily living? No 04/05/2023 Utilities Answer Date Recorded In the past 12 months, has t he electric, gas, oil or water company threatened to shut off services in your home? No 04/05/2023 Depression Answer Date Recorded Patient Health Questionnaire-2 Score 1 11/21/2022 Comments No Sex and Gender Information Value Date Recorded Sex Assigned at Female 04/11/2022 10:15 AM EDT Legal Sex Female 10:15 AM EDT Gender Identity Female 04/11/2022 10:15 AM EDT Sexual Orientation Straight 04/11/2022 10 :15 AM EDT documented as of this encounter Plan of Treatment Upcoming Encounters Date Type Department Care Team (Late st Contact Info) Description 11/27/2024 9:15 AM EDT Office Visit [facility] [address] [place] [phone] Brenda Carreno MD [address] [place] [phone] 01/20/2025 9:15 AM EDT Office Visit [facility] [address] [place] [phone] Brenda Carreno MD [address] [place] [address] [phone] documented as of this encounter Visit Diagnoses Diagnosis Seasonal allergic rhinitis due to pollen documented in this encounter Additional Health Concerns Assessment Noted Time PHQ-9 Depression Total Score: 2 11/22/19 23 9:22 AM EDT documented as of this encounter Care Teams Ramp And Cargo Supervisor Relationship Specialty Start Date End Date Brenda Carreno MD [address] [place] [address] [phone] PCP - General Family Medicine 02/21/18 documented as of this encounter
== END 2024-11-18 16:13 | disposition home or self-care (01) ==
LOC: HO.HHCLNP 16:12
PROVIDERS: Visit Provider Advanced Practice Midwife
DX: Z12.4 Encounter for screening for malignant neoplasm of cervix (principal)
CPT/HCPCS: 87626; 88175

== ENCOUNTER 2024-12-16 10:04 | Outpatient (REF) | payer MEDICAID, SELFPAY ==
--- NOTE | ~2024-12-16 | US_ITS ---
EXAMINATION: US PELVIS CLINICAL INFORMATION: Left lower quadrant pain. COMPARISON: 06/19/2022. TECHNIQUE: Ultrasound of the pelvis is performed using both transabdominal and transvaginal transducers along with Doppler. Transvaginal imaging is performed due to inadequate visualization transabdominally. FINDINGS: Uterus: The uterus is anteverted and measures 8.7 x 3.8 x 4.7 cm. Cervix is normal in appearance. The double wall endometrial thickness is 10 mm. It is uniform. The uterus is smooth in contour and has normal myometrial echogenicity. There is a 0.7 x 1.0 x 0.9 cm ventral intramural fibroid in the proximal lower uterine segment. Adnexa: Both ovaries are visualized. There is normal color flow to the adnexa. There is no ovarian torsion. There is no pelvic ascites or fluid collection. There are no adnexal masses. Right ovary measures 3.1 x 2.0 x 2.6 cm. Volume = 8.2 mL. Normal sonographic appearance. Left ovary measures 3.1 x 1.7 x 2.3 cm. Volume = 6.4 mL. Normal sonographic appearance. US/US pelvic and transvaginal IMPRESSION: 1. Uterus demonstrating a ventral lower uterine segment intramural fibroid measuring 0.7 x 1.0 x 0.9 cm. Uterus otherwise normal. 2. Normal endometrium at 10 mm. 3. Normal ovaries bilaterally. No adnexal abnormalities. 4. No free fluid. Electronically signed by: Armando Arechiga MD 12/16/2024 11:03 AM EDT
--- OUTSIDE RECORDS SUMMARY | 2024-12-16 10:46 | XMS_ITS | Clinical Summary ---
Author Organization [facility] Address [address] [place] [address] Care Team Providers Care Career Development Counselor Name Role Phone Unavailable Primary Care Provider Unavailabl e Source Comments PLEASE NOTE, if this patient is a minor, it may be UNLAWFUL to discuss sensitive information that is contained in these records (such as FAMILY PLANNING, MENTAL HEALTH or SUBSTANCE ABUSE) with the minor patient's parent or other person without the patient's specific authorization.[facility] Allergies Active Allergy Reactions Criticality Noted Date Comments Apple Juice 11/21/2022 Food Extracts 11/21/2022 Fruit Extracts 07/11/2022 Pear 11/21/2022 Pineapple 11/21/2022 [place] 11/21/2022 Medications blood pressure monitor Use 1 Kit as directed 2 to 3 (two to three) times daily as needed for other reason (BP) 3 Active albuterol HFA 90 mcg/actuation inhaler Inhale 2 Puffs into the lungs every 6 (six) hours as needed 4 Active fluticasone (FLONASE) 50 mcg/actuation nasal spray Place 1 [place] in both nostrils once daily 4 Active ipratropium-alb uteroL (DUONEB) 0.5 mg-3 mg(2.5 mg base)/3 mL nebulizer solution Take 1 Vial by nebulization 4 (four) times daily 4 Active levothyroxine 75 mcg tablet Take 75 mcg by mouth once daily Active loratadine (CLARITIN) 10 mg tablet Take 1 Tablet by mouth every morning 4 Active losartan (COZAAR) 25 mg tablet Take 25 mg by mouth daily 4 05/20/20 25 Active ketotifen (ZADITOR) 0.025 % (0.035 %) ophthalmic solution Place 1 Drop into both eyes 2 (two) times daily 4 Active hydrOXYzine pamoate (VISTARIL) 25 mg capsuleIndicati ons:Moderate episode of recurrent major depressive disorder ([facility]) Take 1 Capsule by mouth 3 (three) times daily as needed for anxiety for up to 30 days 90 Capsule 1 5 Active Active Problems Problem Noted Date Diagnosed Date Class 2 obesity 07/11/2024 Premenstrual dysphoric syndrome 03/22/2024 Moderate persistent asthma without complication ([facility]) 01/19/2024 Other constipation 01/19/2024 Other chest pain 08/11/2023 Shortness of breath 08/11/2023 Class 2 severe obesity with serious comorbidity and body mass index (BMI) of 36.0 to 36.9 in adult ([facility]) 03/22/2023 Primary hypertension 03/22/2023 Abnormal finding on EKG 12/16/2022 Elevated blood pressure reading 12/16/2022 Heat stroke 12/16/2022 Discharge from nipple 12/15/2022 Fatigue 12/15/2022 Backache 12/15/2022 Pelvic pain 11/22/2022 Encounter for screening and preventative care Acquired hypothyroidism 07/11/2022 Anxiety 07/11/2022 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 Assessment & Plan (10/03/2024 12:21 PM EDT): Assessment Patient with moderate depression and anxiety, currently psychiatrically stable with significant improvement in mood and functioning following lifestyle modifications. Patient has discontinued Zoloft due to intolerance but is managing well with only as-needed hydroxyzine for occasional anxiety. No safety concerns present. Plan Discharge to primary care: Patient is stable enough to continue care with primary care provider. Email sent to patient's primary care provider and program child care coordinator at [facility] regarding transition of care. Medication: 30-day refill of hydroxyzine with one extra refill sent to pharmacy for PRN use. Safety planning: Patient aware of signs/symptoms of worsening depression and importance of seeking help promptly. Has safety numbers if needed, though no current safety concerns. Follow-up: To be established with primary care provider. Assessment & Plan (09/05/2024 2:29 PM EDT): Assessment: Improving without medication but with lifestyle changes, talk therapy and acupuncture Plan: Continue with self improvement plan, follow- up in a month to assess mood before discharging to PCP Stop Zoloft Continue hydroxyzine PRN for anxiety, may use 1-2 cap at HS for sleep Continue bi-weekly therapy sessions Follow-up in 4 weeks Patient educated regarding possible medication side effects and importance of consistent follow-up care. Assessment & Plan (08/08/2024 2:03 PM EST): Assessment: Improving Plan: Continue Zoloft but take at HS Continue hydroxyzine PRN for anxiety, may use 1-2 cap at HS for sleep Continue bi-weekly therapy sessions Follow-up in 4 weeks Patient educated regarding possible medication side effects and importance of consistent follow-up care. Assessment & Plan (07/11/2024 4:27 PM EST): Assessment: Depressed mood and anxiety Plan: initiation of Zoloft (sertraline) with hydroxyzine PRN for anxiety. Patient to continue current counseling services. Follow-up scheduled for August 08 at 1:30 PM. Patient educated regarding possible medication side effects and importance of consistent follow-up care. Mild intermittent asthma ([facility]) 04/10/2017 Encounters Date Type Department Care Team Description 10/03/2024 11:30 AM EDT Behavioral Health Visit [facility] [address] [place] [address] [place] [phone] Lexie Villalta APRN from Last 3 Months Immunizations Immunization Administration Dates Next Due Flu, Multi Dose 0.5 ML 03/07/2018 Flu, Preservative Free 03/22/2023,2020,08/22/2019,2016 PNEUMOCOCCAL CONJUGATE PCV 2 0 (Prevnar) 01/19/2024 TDAP 08/06/2019,04/10/2017 Family History Medical History Relation Name Comments Anxiety disorder Mother Depression Mother Autism Son Relation Name Status Comments Father Alive Mother Alive Son Social History Tobacco Use Types Packs/Day Years Used Date Smoking Tobacco: Never Smokeless Tobacco: Never Tobacco Cessation:Counseling Given: No Alcohol Use Standard Drinks/Week Comments Never 0 (1 standard drink = 0.6 oz pur e alcohol) Social Connections Answer Date Recorded Connectedness 0 05/20/2024 Financial Resource Strain Answer Date R ecorded Financial Resource Strain 0 2023 Stress Answer Date Recorded Stress 0 05/20/2024 Physical Activity Answer Date Recorded Physical Activity 0 05/20/2024 Food Insecurity Answer Date Recorded Food 0 05/20/2024 Transportation Needs Answer Date Record ed Transportation 0 05/20/2024 Housing Stability Answer Date Recorded Housing 0 05/20/2024 Safety and Environment Answer Date Urban rded Safety 0 05/20/2024 Utilities Answer Date Recorded Utilities 0 05/20/2024 Employment Answer Date Recorded Stress 0 05/20/2024 Comments Unknown Sex and Gender Information Value Date Recorded Sex Assigned at Female 05/20/2024 11:02 AM PST Legal Sex Female 11:02 AM PST Gender Identity Female 05/20/2024 11:02 AM PST Sexual Orientation Not on file Plan of Treatment Health Maintenance Due Date Last Done Comments Anxiety Screening 1993 Depression Monitoring 1993 HPV Screening 1993 Hepatitis C Screening 1993 Pap + HPV 1993 HIV Screening 2008 Relationship Safety Screening/Counseling 2008 Imm-Hepatitis B (1 of 3 - 19 + 3-dose series) 2012 Cervical Cancer Screening 2014 Pap Smear 2014 [id number] () 02/11/2024 021 Alcohol and Drug Screen 06/12/2024 Lipid Screening 09/09/2024 09/09/2021 Imm-Influenza (#1) 2025 08/26/2024, 1 , 05/17/2021, Additional history exists TSH Monitoring 05/20/2025 05/20/2024 Tobacco Screening 07/11/2025 07/11/2024 Imm-DTaP/Tdap/Td (3 - Td or Tdap) 08/06/2029 020, 04/10/2017 Imm-Pneumococcal Completed 01/19/2024 Cervical Ablation/Cold-Knife Conization Discontinued Cervical Cryotherapy Discontinued Colposcopy Discontinued Endometrial Biopsy Discontinued Excision/Leep Discontinued HPV Genotyping Discontinued Vaginal Pap Discontinued Vulvoscopy Discontinued Insurance [facility] [place] MEDICAID
--- OUTSIDE RECORDS SUMMARY | 2024-12-16 10:46 | XMS_ITS | Encounter Summary ---
Author Organization [employer] Address [address] [facility] 7t [place] [address] Care Team Providers Care Oracle Database Manager Name Role Phone Brenda Carreno MD Primary Care Provide r Reason for Visit * Reason Comments Med Refill Encounter Details Date Type Department Care Team ([facility] st Contact Info) Description 09/21/2023 Refill [facility] [address] [place], [place] [phone] Brenda Carreno MD [address] [place], [place] [phone] Seasonal allergic rhinitis due to pollen Social [...] Care Team (Late st Contact Info) Description 01/07/2025 9:00 AM EDT Office Visit [facility] [address] [place] [phone] Brenda Carreno MD [address] [place] [phone] 01/20/2025 9:15 AM EDT Office Visit [facility] [address] [place] [phone] Brenda Carreno MD [address] [place] [address] [phone] documented as of this encounter Visit Diagnoses Diagnosis Seasonal allergic rhinitis due to pollen documented in this encounter Additional Health Concerns Assessment Noted Time PHQ-9 Depression Total Score: 2 11/22/19 23 9:22 AM EDT documented as of this encounter Care Teams Oracle Database Manager Relationship Specialty Start Date End Date Brenda Carreno MD [address] [place] [address] [phone] PCP - General Family Medicine 02/21/18 documented as of this encounter
--- OUTSIDE RECORDS SUMMARY | 2024-12-16 10:46 | XMS_ITS | Clinical Summary ---
Author Organization [facility] Address [address] [place] [address] Phone Care Team Providers Care Bagel Maker Name Role Phone Brenda Carreno MD Primary Care Provide r Encounters Date Type Department Care Team Description 11/27/2024 8:15 AM EDT Consult Orthopedic Surgery [facility] [address] [phone] Tim Whitehead DPM Verruca plantaris (Primary Dx); Corns and callosities from Last 3 Months Surgical History Surgery Date Site/Laterality Comments TONSILLECTOMY PROCEDURE: HISTORICAL TONSILLECTOMY OTHER SURGICAL HISTORY PROCEDURE: HYSTEROSCOPY, DIAGNOSTIC OTHER SURGICAL HISTORY PROCEDURE: [place] DILATION & CURETTAGE DX&/THER NONOBSTETRIC Medical History Medical History Date Comments Thyroid goiter DX:Thyroid goite r Depression DX:Depression Asthma DX:Asthma Menorrhagia DX:Menorrhagia Migraines DX:Migraines Family History Relation Name Status Comments Father Alive Mother Alive Social History Tobacco Use Types Packs/Day Years Used Date Smoking Tobacco: Never Smokeless Tobacco: Never Alcohol Use Standard Drinks/Week Comments No 0 (1 standard drink = 0.6 oz pur e alcohol) Comments Unknown Sex and Gender Information Value Date Recorded Sex Assigned at Not on file Legal Sex Female 3:01 AM EST Gender Identity Not on file Sexual Orientation Not on file Obstetrics History Plan of Treatment Upcoming Encounters Date Type Department Care Team ([facility] st Contact Info) Description 01/07/2025 1:45 PM EDT Office Visit Orthopedic [facility] [address] [phone] Tim Whitehead DPM [address] [phone] Health Maintenance Due Date Last Done Comments Hepatitis B Vaccines (1 of 3 - 19+ 3-dose series) 2012 COVID-19 Vaccine (2 - 2023- season) 2024 01/15/2021 HIV Screening 09/20/2024 Hepatitis C Screening 09/20/2024 Social Influencers of Health Screening 09/20/2024 Hypertension/CHF/CAD Annual BMP Blood Test 11/27/2024 Influenza Vaccine (#1) 2025 , 03/22/2023, 05/17/2021, Additional history exists Depression Screening 05/20/2025 05/20/2024 Cholesterol Screening (Lipid Panel) 09/09/2026 09/09/2021 Cervical Cancer Screening: Pap Smear 11/19/2027 11/18/2024 DTaP,Tdap,and Td Vaccines (3 - Td or Tdap) 08/06/2029 08/06/2019, 04/10/2017 Pneumococcal Vaccine: Pediatrics (0 to 5 Years) and At-Risk Patients (6 to 64 Years) Completed 01/19/2024 HIB Vaccines Aged Out No longer eligi ble based on patient's age to complete this topic HPV Vaccines Aged Out No longer eligi ble based on patient's age to complete this topic Hepatitis A Vaccines Aged Out No long er eligible based on patient's age to complete this topic IPV Vaccines Aged Out No longer eligi ble based on patient's age to complete this topic MMR Vaccines Aged Out No longer eligi ble based on patient's age to complete this topic Meningococcal ACWY Vaccine Aged Out N o longer eligible based on patient's age to complete this topic Meningococcal B Vaccine Aged Out No l onger eligible based on patient's age to complete this topic RSV Immunization Patients Under 20 months Aged Out No longer eligible based on patient's age to complete this topic Varicella Vaccines Aged Out No longer eligible based on patient's age to complete this topic Insurance [place]ICAID - [place] Care Teams Bagel Maker Relationship Specialty Start Date End Date Brenda Carreno MD [address] [place] [phone] PCP - General Internal Medicine 09/20/24
== END 2024-12-16 10:05 | disposition home or self-care (01) ==
LOC: HO.US 10:04
PROVIDERS: PCP Internal Medicine; Visit Provider Advanced Practice Midwife
DX: R10.2 Pelvic and perineal pain (principal)
CPT/HCPCS: 76830; 76856

== ENCOUNTER → 2024-12-16 10:10 | Outpatient (BNV) | payer MEDICAID, SELFPAY | PROVIDERS: PCP Internal Medicine; Visit Provider Radiology Diagnostic Radiology | DX: D25.1 Intramural leiomyoma of uterus (principal) | CPT/HCPCS: 76830; 76856 ==

== ENCOUNTER 2025-01-20 09:47 | Outpatient (REF) | payer MEDICAID, SELFPAY ==
--- OUTSIDE RECORDS SUMMARY | 2025-01-20 09:15 | XMS_ITS | Encounter Summary ---
Author Organization [employer] Address [address] [facility] [address] [place] [address] Care Team Providers Care Pattern Grader Cutter Name Role Phone Brenda Carreno MD Primary Care Provide r River Granger RN Unavailable [phone] Valery Banegas Unavailable Encounter Details Date Type Department Care Team (Late st Contact Info) Description 01/20/2025 9:15 AM EDT Office Visit [facility] [address] [place], [place] [phone] Brenda Carreno MD [address] [place], [place] [phone] Encounter for preventive care (Primary Dx); Mild intermittent asthma without complication; Seasonal allergic rhinitis due to pollen; Encounter for screening and preventative care Social History Tobacco Use Types Packs/Day Years Used Date Smoking Tobacco: Never Passive Smoke Exposure: Never Smokeless Tobacco: Never Alcohol Use Standard Drinks/Week Comments Never 0 (1 standard drink = 0.6 oz pur e alcohol) Depression Answer Date Recorded Patient Health Questionnaire-9 Score 12 01/07/2025 Patient Health Questionnaire-9 Score 12 01/07/2025 Last PHQ-9: Questionnaire Data Not on file 0 01/07/2025 Housing Stability Answer Date Recorded What is [...] Answer Date Recorded Patient Health Questionnaire-2 Score 4 01/07/2025 Internet Access Answer Date Recorded Internet Access Q1 No 01/07/2025 Internet Access Q2 I do not want or need it 12/11 Comments No Sex and Gender Information Value Date Recorded Sex Assigned at Female 04/11/2022 10:15 AM EDT Legal Sex Female 10:15 AM EDT Gender Identity Female 04/11/2022 10:15 AM EDT Sexual Orientation Straight 04/11/2022 10 :15 AM EDT documented as of this encounter Last Filed Vital Signs Vital Sign Reading Time Taken Comments Blood Pressure 130/76 01/20/2025 9:25 AM EDT Pulse 80 01/20/2025 9:25 AM EDT Temperature 35.9 C (96.7 F) 01/20/2025 9:25 AM EDT Respiratory Rate 16 01/20/2025 9:25 AM EDT Oxygen Saturation - - Inhaled Oxygen Concentration - - Weight 99.5 kg (219 lb 4 oz) 01/20/2025 9:25 AM EDT Height 162.6 cm (5' 4 ) 01/20/2025 9:25 AM EDT Body Mass Index 37.63 01/20/2025 9:25 AM EDT documented in this encounter Plan of Treatment Scheduled Orders Name Type Priority Associated Diagnoses Orde r Schedule CBC auto differential Lab Routine Encounter for screening and preventative care Expected: 01/20/2025 (Approximate), Expires: 01/20/2026 Comprehensive Metabolic Panel Lab Routine Encounter for screening and preventative care Expected: 01/20/2025 (Approximate), Expires: 01/20/2026 Hemoglobin A1c Lab Routine Encounter for screening and preventative care Expected: 01/20/2025 (Approximate), Expires: 01/20/2026 HIV-1/2 Antigen and Antibodies, Fourth Generation, with Reflexes Lab Routine Encounter for screening and preventative care Expected: 01/20/2025 (Approximate), Expires: 01/20/2026 Hepatitis C Antibody with Reflex to HCV, RNA, Quantitative, Real-Time PCR Lab Routine Encounter for screening and preventative care Expected: 01/20/2025, Expires: 01/20/2026 Lipid Panel, Standard Lab Routine Encounter for screening and preventative care Expected: 01/20/2025 (Approximate), Expires: 01/20/2026 Vitamin D, 25-Hydroxy, Total, Immunoassay Lab Routine Encounter for screening and preventative care Expected: 01/20/2025 (Approximate), Expires: 01/20/2026 TSH with Reflex to Free T4 Lab Routine Encounter for screening and preventative care Expected: 01/20/2025 (Approximate), Expires: 01/20/2026 documented as of this encounter Visit Diagnoses Diagnosis Encounter for preventive care- Primary Mild intermittent asthma without complication Seasonal allergic rhinitis due to pollen Encounter for screening and preventative care documented in this encounter Additional Health Concerns Assessment Noted Time PHQ-9 Depression Total Score: 12 025 10:41 AM EDT documented as of this encounter Care Teams Pattern Grader Cutter Relationship Specialty Start Date End Date Brenda Carreno MD [address] [place] [phone] PCP - General Family Medicine 02/21/18 River Granger RN [address] [place] [phone] Registered Nurse Family Medicine 01/08/25 Valery Banegas 01/08/25 documented as of this encounter
--- OUTSIDE RECORDS SUMMARY | 2025-01-20 10:18 | XMS_ITS | Clinical Summary ---
Author Organization [facility] Address [address] [place] [address] Care Team Providers Care Terminologist Name Role Phone Unavailable Primary Care Provider [...] Fruit Extracts 07/11/2022 Pear 11/21/2022 Pineapple 11/21/2022 [place] 11/21/2022 Medications blood pressure monitor Use 1 Kit as directed 2 to 3 (two to three) times daily as needed for other reason (BP) 3 Active albuterol HFA 90 mcg/actuation inhaler Inhale 2 Puffs into the lungs every 6 (six) hours as needed 4 Active fluticasone (FLONASE) 50 mcg/actuation nasal spray Place 1 [place] in both nostrils once daily 4 Active [...] ons:Moderate episode of recurrent major depressive disorder ([facility]) Take 1 Capsule by mouth 3 (three) times daily as needed for anxiety for up to 30 days 90 Capsule 1 5 Active Active Problems Problem Noted Date Diagnosed Date Class 2 obesity 07/11/2024 Premenstrual dysphoric syndrome 03/22/2024 Moderate persistent asthma without complication ([facility]) 01/19/2024 Other constipation 01/19/2024 Other chest pain 08/11/2023 Shortness of breath 08/11/2023 Class 2 severe obesity with serious comorbidity and body mass index (BMI) of 36.0 to 36.9 in adult ([facility]) 03/22/2023 Primary hypertension 03/22/2023 Abnormal finding on EKG 12/16/2022 Elevated blood pressure reading 12/16/2022 Heat stroke 12/16/2022 Discharge from nipple 12/15/2022 Fatigue 12/15/2022 Backache 12/15/2022 Pelvic pain 11/22/2022 Encounter for screening and preventative care Acquired hypothyroidism 07/11/2022 Anxiety 07/11/2022 Clara's disease 07/11/2022 Allergic rhinitis due to pollen 04/10/2017 Migraine 04/10/2017 Moderate episode of recurren t major depressive disorder ([facility]) 04/10/2017 Overview (07/11/2024): Assessment suggests Major Depressive [...] to patient's primary care provider and program resident care aide at [facility] regarding transition of care. Medication: 30-day [...] of consistent follow-up care. Mild intermittent asthma ([facility]) 04/10/2017 Immunizations Immunization Administration Dates Next Due [...] Cervical Cancer Screening 2014 Pap Smear 2014 [id number] () 02/11/2024 021 Alcohol and Drug Screen [...] Discontinued Vaginal Pap Discontinued Vulvoscopy Discontinued Insurance [employer] [place] MEDICAID
--- OUTSIDE RECORDS SUMMARY | 2025-01-20 10:18 | XMS_ITS | Clinical Summary ---
Author Organization [facility] Address [address] [place] [address] Phone Care Team Providers Care Import/Export Agent Name Role Phone Brenda Carreno MD Primary Care Provide r Allergies No known active allergies Encounters Date Type Department Care Team Description 01/07/2025 1:45 PM EDT Office Visit Orthopedic Surgery [facility] [address] [place] [phone] Tim Whitehead DPM Verruca plantaris (Primary Dx); Corns and callosities 11/27/2024 8:15 AM EDT Consult Orthopedic Surgery [facility] [address] [phone] Tim Whitehead, SAMRAM Verruca plantaris (Primary Dx); Corns and callosities from Last 3 Months Surgical History Surgery Date Site/Laterality Comments TONSILLECTOMY PROCEDURE: HISTORICAL TONSILLECTOMY OTHER SURGICAL HISTORY PROCEDURE: HYSTEROSCOPY, DIAGNOSTIC OTHER SURGICAL HISTORY PROCEDURE: MN DILATION & CURETTAGE DX&/THER NONOBSTETRIC Medical History [...] Upcoming Encounters Date Type Department Care Team ([facility] Contact Info) Description 02/20/2025 3:00 PM EDT Office Visit Orthopedic Surgery - [place] [address] [phone] Tim Whitehead, DPM 175 [facility] [address] [place] [address] Health Maintenance Due Date Last Done Comments Hepatitis B Vaccines (1 of 3 - 19+ 3-dose series) 2012 COVID-19 Vaccine (2 - season) 2024 01/15/2021 Depression Screening 06/12/2024 HIV [...] topic Insurance MEDICAID - [place] Care Teams Import/Export Agent Relationship Specialty Start Date End Date Brenda Carreno MD [address] [phone] PCP - General Internal Medicine 09/20/24
[2025-01-20 11:23] LABS: MANUAL DIFF FLAG NO
[2025-01-20 11:34] LABS: Hematocrit 42.2 % (37.0-47.0); Hemoglobin 13.4 g/dl (12.0-16.0); Imm Gran Abs Auto 0.00 X10*3/uL (0.00-0.03); Imm Gran Pct Auto 0.0 % (0.0-0.4); Lymphocytes Absolute Auto 2.1 X10*3/uL (1.2-4.9); Mean Corpuscular HGB Conc 31.8 g/dl (31.0-35.0); Mean Corpuscular Hemoglobin 27.9 pg (27.0-33.0); Mean Corpuscular Volume 87.7 fL (80.0-98.0); NRBC Abs Auto 0.000 X10*3/uL (0.0-0.012); NRBC Pct Auto 0.0 /100WBC (0.0-0.2); Platelet Count 267 X10*3/uL (160-400); Red Blood Count 4.81 X10*6/uL (4.20-5.50); White Blood Count 5.9 X10*3/uL (4.8-10.8)
[2025-01-20 11:59] LABS: Alanine Aminotransferase 41 U/L (0-31); Albumin Level 4.4 g/dL (3.5-5.0); Alkaline Phosphatase 101 U/L (39-117); Anion Gap 10 (12-20); Aspartate Amino Transferase 26 U/L (5-31); Blood Urea Nitrogen 11 mg/dL (9-16); Calcium 9.1 mg/dL (8.4-10.2); Carbon Dioxide 27 mmol/L (22-29); Chloride 109 mmol/L (96-108); Cholesterol 247 mg/dL (<200); Estimated Glomerular Filt Rate > 60; HDL Cholesterol 51 mg/dL (>40); Potassium 4.1 mmol/L (3.3-5.1); Sodium 142 mmol/L (135-145); Total Protein 7.0 g/dL (6.5-8.0); Triglycerides 140 mg/dL (<150)
[2025-01-20 12:24] LABS: Hemoglobin A1C 126.8806 umol/L; Total Hemoglobin (HGBA1C) 3532.5784 umol/L
[2025-01-20 12:48] LABS: HIV Num 1 0.05 S/CO (0.00-0.99); ~HepC Num1 0.13 S/CO (0.00-0.79); ~Hepatitis C Antibody Nonreactive (Nonreactive)
== END 2025-01-20 09:48 | disposition home or self-care (01) ==
LOC: HO.HHCL 09:47
PROVIDERS: PCP Internal Medicine; Visit Provider Internal Medicine
DX: Z00.00 Encounter for general adult medical examination without abnormal findings (principal); Z11.4 Encounter for screening for human immunodeficiency virus [HIV]
CPT/HCPCS: 36415; 80053; 80061; 82306; 83036; 84443; 85025; 86803; 87389

== ENCOUNTER 2025-01-23 15:35 | Outpatient (REF) | payer MEDICAID, SELFPAY ==
--- OUTSIDE RECORDS SUMMARY | 2025-01-20 09:15 | XMS_ITS | Encounter Summary ---
Author Organization [employer] Address [address] [facility] [address] [place] [address] Care Team Providers Care Shift Boss Name Role Phone Brenda Carreno MD Primary Care Provide r River Granger RN Unavailable [phone] Valery Banegas Unavailable Encounter Details Date Type Department Care Team (Late st Contact Info) Description 01/20/2025 9:15 AM EDT Office Visit [facility] [address], [place] [phone] Brenda Carreno MD [address], [place] [phone] Mild intermittent asthma without complication (Primary Dx); Primary hypertension; Seasonal allergic rhinitis due to pollen; Encounter [...] is your housing situation today? I have pedroalcon pardo 04/05/[address] you [...] 9:25 AM EDT documented in this encounter Progress Notes * Brenda Jang MD - 01/20/2025 9:15 AM EDT SUBJECTIVE: Lois iSmpson is a 29 y.o. year old female who presents for Physical . 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 Diet:regular Exercise:4-5 times a week she walks an hour LMP: 01/10/25 Pap Smear:11/18/2029 Eye Care:up to date Dental Care:up to date PMHx:on chart Immunizations: Reviewed Acute Concerns: Feet swelling with blood pressure medication Social History Social History Narrative Not on file Problem List[1] Acquired hypothyroidism Allergic rhinitis due to pollen Anxiety Clara's disease Migraine Mild intermittent asthma Mild episode of recurrent major depressive disorder ([facility]/HCC) Encounter for screening and preventative care Pelvic pain Discharge from nipple Fatigue Backache Heat apoplexy Abnormal finding on EKG Elevated blood pressure reading Primary hypertension Class 2 severe obesity with serious comorbidity and body mass index (BMI) of 37.0 to 37.9 in adult (CMS/HCC) Other chest pain Shortness of breath Other constipation Moderate persistent asthma without complication Premenstrual dysphoric syndrome Callus of foot Palpitations Snoring Hypersomnia AVTAR (generalized anxiety disorder) Moderate major depression ([facility]) Family History[2] Review of Systems Constitutional: Negative. HENT: Negative. Respiratory: Negative. Cardiovascular: Negative. Psychiatric/Behavioral: The patient is nervous/anxious. OBJECTIVE: Vitals: 01/20/25 0925 BP: 130/76 BP Location: Left arm Patient Position: Sitting BP Cuff Size: Large adult Pulse: 80 Resp: 16 Temp: 96.7 ??F (35.9 ??C) TempSrc: Oral Weight: 219 lb 4 oz (99.5 kg) Height: 5' 4 (1.626 m) Physical Exam Constitutional: Appearance: Normal appearance. Cardiovascular: Rate and Rhythm: Normal rate and regular rhythm. Pulmonary: Effort: Pulmonary effort is normal. Breath sounds: Normal breath sounds. Abdominal: General: Abdomen is flat. Palpations: Abdomen is soft. Musculoskeletal: Right lower leg: No edema. Left lower leg: No edema. Neurological: Mental Status: She is alert. Follow Up: Follow up in about 3 months (around 04/22/2025) for chronic conditions . Medications Ordered Prior to Encounter[3] Problem List Items Addressed This Visit Primary hypertension I advised: - Aerobic exercise to reduce BP. Initial goal of 30 min walk 3-5x/week. Increase as tolerated. - low-sodium diet (goal: <2g/day) and heart healthy diet such as DASH to reduce BP and prevent ASCVD. - Home BP monitoring 1-2 x day with goal of <140/90. - Seek immediate medical attention for chest pain, palpitations, SOB, syncope, or sudden changes inmental status. - Do not change or discontinue current prescriptions without first consulting health care provider Mild intermittent asthma - Primary Patient educated to avoid triggers Relevant Medications albuterol 108 (90 Base) MCG/ACT inhaler loratadine (Claritin) 10 MG tablet Allergic rhinitis due to pollen Relevant Medications loratadine (Claritin) 10 MG tablet Encounter for screening and preventative care See HPI Relevant Orders CBC auto differential Comprehensive Metabolic Panel Hemoglobin A1c HIV-1/2 Antigen and Antibodies, Fourth Generation, with Reflexes Hepatitis C Antibody with Reflex to HCV, RNA, Quantitative, Real-Time PCR Lipid Panel, Standard Vitamin D, 25-Hydroxy, Total, Immunoassay TSH with Reflex to Free T4 [1] Patient Active Problem List Diagnosis Acquired hypothyroidism Allergic rhinitis due to pollen Anxiety Clara's disease Migraine Mild intermittent asthma Mild episode of recurrent major depressive disorder ([facility]/HCC) Encounter for screening and preventative care Pelvic pain Discharge from nipple Fatigue Backache Heat apoplexy Abnormal finding on EKG Elevated blood pressure reading Primary hypertension Class 2 severe obesity with serious comorbidity and body mass index (BMI) of 37.0 to 37.9 in adult (CMS/HCC) Other chest pain Shortness of breath Other constipation Moderate persistent asthma without complication Premenstrual dysphoric syndrome Callus of foot Palpitations Snoring Hypersomnia AVTAR (generalized anxiety disorder) Moderate major depression ([facility]/HCC) Encounter for preventive care [2] Family History Problem Relation Name Age of Onset Hypertension Father Coronary artery disease Father Colon polyps Father 50 - 59 Breast cancer Mother's Sister 26 Breast cancer Father's Sister 30 Colon cancer Father's Brother 5 paternal uncles with colon cancer, dx 40s-50s Ovarian cancer Paternal Grandmother [3] Current Outpatient Medications on File Prior to Visit Medication Sig Dispense Refill Blood Pressure Monitor kit Use as directed 3x/week 1 kit 0 fluticasone (Flonase) 50 MCG/ACT nasal spray Administer 1 spray into each nostril in the morning. 16 g 2 hydrOXYzine HCl (Atarax) 25 MG tablet Take 1 tablet (25 mg) by mouth every 8 (eight) hours if needed for itching. 30 tablet 0 Ketotifen Fumarate 0.035 % solution Administer 1 drop into both eyes if needed in the morning and at bedtime (allergies). 5 mL 1 levothyroxine (Synthroid, Levoxyl) 75 MCG tablet Take 75 mcg by mouth in the morning. NIFEdipine XL (Procardia XL) 30 MG 24 hr tablet Take 1 tablet (30 mg) by mouth Once per day. Do notcrush, chew, or split. 30 tablet 2 polycarbophil (FiberCon) 625 MG tablet Take 1 tablet (625 mg) by mouth Once per day. 30 tablet 11 Probiotic Product (Up4 Probiotics Adult) capsule Take 1 capsule by mouth Once per day. 30 capsule 2 [DISCONTINUED] albuterol 108 (90 Base) MCG/ACT inhaler Inhale 2 puffs every 6 (six) hours if neededfor wheezing. 18 g 2 [DISCONTINUED] loratadine (Claritin) 10 MG tablet Take 1 tablet (10 mg) by mouth in the morning. 90tablet 1 No current facility-administered medications on file prior to visit. documented in this encounter Miscellaneous Notes * Assessment & Plan Note - Brenda Jang MD - 01/20/2025 11:18 AM EDT Associated Problem(s): Mild intermittent asthma Patient educated to avoid triggers * Assessment & Plan Note - Brenda Jang MD - 01/20/2025 11:18 AM EDT Associated Problem(s): Encounter for screening and preventative care See HPI * Assessment & Plan Note - Brenda Jang MD - 01/20/2025 11:18 AM EDT Associated Problem(s): Primary hypertension I advised: - Aerobic exercise to reduce BP. Initial goal of 30 min walk 3-5x/week. Increase as tolerated. - low-sodium diet (goal: <2g/day) and heart healthy diet such as DASH to reduce BP and prevent ASCVD. - Home BP monitoring 1-2 x day with goal of <140/90. - Seek immediate medical attention for chest pain, palpitations, SOB, syncope, or sudden changes inmental status. - Do not change or discontinue current prescriptions without first consulting health care provider documented in this encounter Plan of Treatment Not on file documented as of this encounter Procedures Procedure Name Priority Date/Time Associated Diagnosis Comments VITAMIN D,25-OH,TOTAL,IA Routine 01/20/2025 9:54 AM EDT Encounter for screening and preventative care TSH W/REFLEX TO FT4 Routine 01/20/2025 9 :54 AM EDT Encounter for screening and preventative care CBC WITH AUTO DIFFERENTIAL Routine 01/20/2025 9:54 AM EDT Encounter for screening and preventative care HEPATITIS C AB W/REFL TO HCV RNA, QN, PCR Routine 01/20/2025 9:54 AM EDT Encounter for screening and preventative care HIV 1/2 ANTIGEN/ANTIBODY, FOURTH GENERATION W/RFL Routine 01/20/2025 9:54 AM EDT Encounter for screening and preventative care HEMOGLOBIN A1C Routine 01/20/2025 9:54 AM EDT Encounter for screening and preventative care LIPID PANEL, STANDARD Routine 01/20/2025 9:54 AM EDT Encounter for screening and preventative care COMPREHENSIVE METABOLIC PANEL Routine 01/20/2025 9:54 AM EDT Encounter for screening and preventative care documented in this encounter Results * TSH with Reflex to Free T4 (01/20/2025 9:54 AM EDT) TSH reflex Free T4 1.09 0.32 - 4.0 uIU/mL [facility] Blood Venous blood specimen / Unknown 01/20/2025 9:54 AM EDT 01/20/2025 11:22 AM EDT us Brenda Jang MD LAB BLOOD ORDERABLES Final Result [facility] [address] [place] [phone] * Vitamin D, 25-Hydroxy, Total, Immunoassay (01/20/2025 9:54 AM EDT) Vitamin D 25-OH Total 52.5 >30 ng/mL [facility] Comment: Health Based Reference Values*< 20 ng/mL Tpacckuyt39-41 ng/mL Insufficient> 30 ng/mL Sufficient*Cathie LOCKE. N Engl J Med. 2007;357:266-280There is no well-established upper level of normal vitamin Dlevels. Some laboratories use 50 ng/mL as an upper limit ofnormal. However, toxicity is patient-dependent and may occurat any level. Careful correlation with the patient'spresentation is necessary and, if there is concern forvitamin D toxicity, treatment should be consideredirrespective of the serum level.Care must be taken in interpreting Vitamin D results fromdifferent laboratories and methodologies. Published datademonstrated that results from patients undergoinghemodialysis may show a negative bias when tested withvarious automated 25-OH vitamin D assays when compared toLC-MS/MS.When testing samples from patients whose predominant form ofVitamin D is Vitamin D2, such as patients receiving VitaminD2 supplementation, results that are subtherapeutic shouldbe confirmed with another method such as LC-MS/MS. Blood Venous blood specimen / Unknown 01/20/2025 9:54 AM EDT 01/20/2025 11:22 AM EDT us Brenda Jang MD LAB BLOOD ORDERABLES Final Result Performing Organization Address [facility]/ZIP Co de Phone Number [facility] [address] [place] [phone] [phone] * (ABNORMAL) Lipid Panel, Standard (01/20/2025 9:54 AM EDT) Triglycerides 140 <150 mg/dL [facility] Comment:Desirable Triglyceri de: less than 150 mg/dLBorderline High Triglyceride 150-199 mg/dLHigh Triglyceride: 200-499 mg/dLVery High Triglyceride: greater than or equal to 5OO mg/dL Cholesterol 247(H) <200 mg/dL [facility] Comment:Desirable Cholestero l: less than 200 mg/dLBorderline High Cholesterol: 200-239 mg/dLHigh Cholesterol: greater than 239 mg/dL LDL Cholesterol Calculated 168(H) <100 mg/dL [facility] Comment:Desirable LDL: less than 100 mg/dLNear Optimal/Above Optimal LDL: 110- 129 mg/dLBorderline High LDL: 130-159 mg/dLHigh LDL: 160-189 mg/dLVery High LDL: greater than or equal to 190 mg/dL HDL Cholesterol 51 >40 mg/dL [facility] Comment:Desirable HDL: great er than 40 mg/dL Note: This HDL assay may give artificially low results in patients with liver disease. Blood Venous blood specimen / Unknown 01/20/2025 9:54 AM EDT 01/20/2025 11:22 AM EDT us Brenda Jang MD LAB BLOOD ORDERABLES Final Result Performing Organization Address [facility]/ZIP Co de Phone Number [facility] [address] [place] [phone] * Hepatitis C Antibody with Reflex to HCV, RNA, Quantitative, Real-Time PCR (01/20/2025 9:54 AM EDT) Hepatitis C Antibody Nonreactive Nonreactive [facility] Comment:Antibodies to HCV no t detected; does not exclude early acuteHCV infection. Blood Venous blood specimen / Unknown 01/20/2025 9:54 AM EDT 01/20/2025 11:22 AM EDT us Brenda Jang MD LAB BLOOD ORDERABLES Final Result Performing Organization Address City/[facility]/ZIP Co de Phone Number [facility] [address] [place] [phone] * HIV-1/2 Antigen and Antibodies, Fourth Generation, with Reflexes (01/20/2025 9:54 AM EDT) HIV AB/AG Nonreactive Nonreactive [facility] Comment:HIV-1 p24 Ag and/or HIV-1/HIV-2 Ab not detected.A test result that is nonreactive does not exclude thepossibility of exposure to or infection with HIV-1 and/orHIV-2. Nonreactive results in this assay for individualswith prior exposure to HIV-1 and/or HIV-2 may be due toantigen and antibody levels that are below the limit ofdetection of this assay.The [employer] HIV Ag/Ab Combo assay result andsupplemental assay results should be interpreted inconjunction with the patient's clinical presentation,history and other laboratory results. If the results areinconsistent with clinical evidence, additional testing issuggested to confirm the result. Blood Venous blood specimen / Unknown 01/20/2025 9:54 AM EDT 01/20/2025 11:22 AM EDT us Brenda Jang MD LAB BLOOD ORDERABLES Final Result [facility] [address] [place] [phone] * Hemoglobin A1c (01/20/2025 9:54 AM EDT) Pathologist [facility] Hemoglobin A1c 5.4 <6.0 % [facility] Comment:Hemoglobin A1C Refer ence Range Adults: 4.8 - 6.0 % Non diabetic: < 6.0 % Goal: < 7.0 %Additional Action Suggested: > 8.0 %Note: Hemoglobin A1c results are invalid for patients with abnormal amounts of HbF. Blood transfusions may impact the HbA1c concentration in the patient sample. Estimated Average Glucose 108 mg/dL [facility] Comment:eAG = Estimated ave rage glucose which is %A1C expressed asaverage glucose, using the formula of the M0E-DriyuknQsbzqfg Glucose study (ADAG), Diabetes Care, Vol.31,#8,Jan. 2007 Blood Venous blood specimen / Unknown 01/20/2025 9:54 AM EDT 01/20/2025 11:18 AM EDT Brenda Jang MD LAB BLOOD ORDERABLES Final Result [facility] [address] [place] [phone] * (ABNORMAL) Comprehensive Metabolic Panel (01/20/2025 9:54 AM EDT) Sodium 142 135 - 145 mmol/L [facility] Potassium 4.1 3.3 - 5.1 mmol/L [facility] Chloride 109(H) 96 - 108 mmol/L [facility] Carbon Dioxide 27 22 - 29 mmol/L [facility] Anion Gap 10(L) 12 - 20 [facility] Urea Nitrogen (BUN) 11 9 - 16 mg/dL [facility] Creatinine, Serum 0.60 0.5 - 1.4 mg/dL [facility] Estimated Glomerular Filt Rate >60 [facility] Comment:Chronic Kidney Disea se: Estimated GFR < 60 mL/min/1.68o0Jztsmt Kidney Disease: Estimated GFR < 15 mL/min/1.73m2 Glucose 89 60 - 115 mg/dL [facility] Calcium 9.1 8.4 - 10.2 mg/dL [facility] Bilirubin, Total 0.7 0.0 - 1.0 mg/dL [facility] Aspartate Amino Transferase 26 5 - 31 U/L [facility] Alanine Aminotransferase 41(H) 0 - 31 U/L [facility] Total Protein 7.0 6.5 - 8.0 g/dL [facility] Albumin Level 4.4 3.5 - 5.0 g/dL [facility] Alkaline Phosphatase 101 39 - 117 U/L [facility] Blood Venous blood specimen / Unknown 01/20/2025 9:54 AM EDT 01/20/2025 11:22 AM EDT Brenda Jang MD LAB BLOOD ORDERABLES Final Result [facility] [address] [place] [phone] * CBC auto differential (01/20/2025 9:54 AM EDT) White Blood Count 5.9 4.8 - 10.8 X10*3/uL [facility] Red Blood Count 4.81 4.20 - 5.50 X10*6/uL [facility] Hemoglobin 13.4 12.0 - 16.0 g/dl [facility] Hematocrit 42.2 37.0 - 47.0 % [facility] Mean Corpuscular Volume 87.7 80.0 - 98.0 fL [facility] Mean Corpuscular Hemoglobin 27.9 27.0 - 33.0 pg [facility] Mean Corpuscular HGB Conc 31.8 31.0 - 35.0 g/dl [facility] Red Cell Distribution Width 11.9 11.0 - 16.0 % [facility] Platelet Count 267 160 - 400 X10*3/uL [facility] Mean Platelet Volume 10.6 9.4 - 12.3 fL [facility] Neutrophils Percent Auto 54.9 45 - 73 % [facility] Imm Gran Pct Auto 0.0 0.0 - 0.4 % [facility] Lymphocytes Percent Auto 34.9 20 - 40 % [facility] Monocytes Percent Auto 6.3 2 - 11 % [facility] Eosinophils Percent Auto 3.2 0 - 4 % [facility] Basophils Percent Auto 0.7 0 - 2 % [facility] NRBC Pct Auto 0.0 0.0 - 0.2 /100WBC [facility] Neutrophils Absolute Auto 3.2 2.0 - 8.3 x10*3/uL [facility] Imm Gran Abs Auto 0.00 0.00 - 0.03 X10*3/uL [facility] Lymphocytes Absolute Auto 2.1 1.2 - 4.9 X10*3/uL [facility] Monocytes Absolute Auto 0.4 0.1 - 1.2 X10*3/uL [facility] Eosinophils Absolute Auto 0.2 0.0 - 0.4 X10*3/uL [facility] Basophils Absolute Auto 0.0 0.0 - 0.2 X10*3/uL [facility] NRBC Abs Auto 0.000 0.0 - 0.012 X10*3/uL [facility] Blood Venous blood specimen / Unknown 01/20/2025 9:54 AM EDT 01/20/2025 11:18 AM EDT us Brenda Jang MD LAB BLOOD ORDERABLES Final Result [facility] [address] [place] [phone] documented in this encounter Visit Diagnoses Diagnosis Mild intermittent asthma without complication- Primary Primary hypertension Unspecified essential hypertension Seasonal allergic rhinitis due to pollen Encounter for screening and preventative care documented in this encounter Additional Health Concerns Assessment Noted Time PHQ-9 Depression Total Score: 12 01/07/ 025 10:41 AM EDT documented as of this encounter Care Teams Shift Boss Relationship Specialty Start Date End Date Brenda Carreno MD [address] [place] [phone] PCP - General Family Medicine 02/21/18 River Granger, RN [address] [place] [phone] Registered Nurse Family Medicine 01/08/25 Valery Banegas 01/08/25 documented as of this encounter
--- OUTSIDE RECORDS SUMMARY | 2025-01-23 15:57 | XMS_ITS | Clinical Summary ---
Author Organization [facility] Address [address] [place] [address] Phone Care Team Providers Care Anthropology Faculty Member Name Role Phone Brenda Carreno MD Primary Care Provide r Allergies No known active allergies Encounters Date Type Department Care Team Description 01/07/2025 1:45 PM EDT Office Visit Orthopedic Surgery [facility] [address] [place] [phone] Tim Whitehead DPM Verruca plantaris (Primary Dx); Corns and callosities 11/27/2024 8:15 AM EDT Consult Orthopedic Surgery [facility] [address] [phone] Tim Whitehead, SAMRAM Verruca plantaris (Primary Dx); Corns and callosities from Last 3 Months Surgical History Surgery Date Site/Laterality Comments TONSILLECTOMY PROCEDURE: HISTORICAL TONSILLECTOMY OTHER SURGICAL HISTORY PROCEDURE: HYSTEROSCOPY, DIAGNOSTIC OTHER SURGICAL HISTORY PROCEDURE: WA DILATION & CURETTAGE DX&/THER NONOBSTETRIC Medical History [...] Upcoming Encounters Date Type Department Care Team ([facility] Contact Info) Description 02/20/2025 3:00 PM EDT Office Visit Orthopedic Surgery - [facility] [address] [phone] Tim Whitehead, DPM 175 [facility] [address] [place] [address] Health Maintenance Due Date Last Done Comments [...] topic Insurance MEDICAID - [place] Care Teams Anthropology Faculty Member Relationship Specialty Start Date End Date Brenda Carreno MD [address] [phone] PCP - General Internal Medicine 09/20/24
--- OUTSIDE RECORDS SUMMARY | 2025-01-23 15:57 | XMS_ITS | Clinical Summary ---
Author Organization [facility] Address [address] [place] [address] Care Team Providers Care Seed Analyst Name Role Phone Unavailable Primary Care Provider [...] Fruit Extracts 07/11/2022 Pear 11/21/2022 Pineapple 11/21/2022 Joslin 11/21/2022 Medications blood pressure monitor Use 1 Kit as directed 2 to 3 (two to three) times daily as needed for other reason (BP) 3 Active albuterol HFA 90 mcg/actuation inhaler Inhale 2 Puffs into the lungs every 6 (six) hours as needed 4 Active fluticasone (FLONASE) 50 mcg/actuation nasal spray Place 1 [place] in both nostrils once daily 4 Active [...] ons:Moderate episode of recurrent major depressive disorder ([facility]) Take 1 Capsule by mouth 3 (three) times daily as needed for anxiety for up to 30 days 90 Capsule 1 5 Active Active Problems Problem Noted Date Diagnosed Date Class 2 obesity 07/11/2024 Premenstrual dysphoric syndrome 03/22/2024 Moderate persistent asthma without complication ([facility]) 01/19/2024 Other constipation 01/19/2024 Other chest pain 08/11/2023 Shortness of breath 08/11/2023 Class 2 severe obesity with serious comorbidity and body mass index (BMI) of 36.0 to 36.9 in adult (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) 04/10/2017 Overview (07/11/2024): Assessment suggests Major Depressive [...] to patient's primary care provider and program floor care specialist at [facility] regarding transition of care. Medication: 30-day refill [...] of consistent follow-up care. Mild intermittent asthma ([facility]) 04/10/2017 Immunizations Immunization Administration Dates Next Due [...] Cervical Cancer Screening 2014 Pap Smear 2014 [id number] () 02/11/2024 021 Alcohol and Drug Screen [...] Discontinued Vaginal Pap Discontinued Vulvoscopy Discontinued Insurance [facility] [place]
[2025-01-26 19:04] LABS: TS Negative Control Passed; TS Panel A 0; TS Panel B 0; TS Positive Control Passed; TSpotTB Negative (Negative)
== END 2025-01-23 15:36 | disposition home or self-care (01) ==
LOC: HO.HHCL 15:35
PROVIDERS: PCP Internal Medicine; Visit Provider Internal Medicine
DX: Z11.1 Encounter for screening for respiratory tuberculosis (principal)
CPT/HCPCS: 36415; 86481

== ENCOUNTER 2025-03-18 20:06 | Emergency (ER) | payer MEDICAID, SELFPAY ==
[2025-03-18 20:23] VITALS: BP 155/84; PULSE 94; RESP 16; TEMP 36.9; O2SAT 98; BMI 35.9
[2025-03-18 21:01] LABS: MANUAL DIFF FLAG NO
[2025-03-18 21:02] LABS: Hematocrit 40.4 % (37.0-47.0); Hemoglobin 13.5 g/dl (12.0-16.0); Imm Gran Abs Auto 0.02 X10*3/uL (0.00-0.03); Imm Gran Pct Auto 0.2 % (0.0-0.4); Lymphocytes Absolute Auto 2.3 X10*3/uL (1.2-4.9); Mean Corpuscular HGB Conc 33.4 g/dl (31.0-35.0); Mean Corpuscular Hemoglobin 28.6 pg (27.0-33.0); Mean Corpuscular Volume 85.6 fL (80.0-98.0); NRBC Abs Auto 0.000 X10*3/uL (0.0-0.012); NRBC Pct Auto 0.0 /100WBC (0.0-0.2); Platelet Count 287 X10*3/uL (160-400); Red Blood Count 4.72 X10*6/uL (4.20-5.50); White Blood Count 9.0 X10*3/uL (4.8-10.8)
[2025-03-18 21:18] LABS: Appearance Urine Clear; Glucose Urine UA Negative (Negative); PH 7.0 (5.0-9.0); Specific Gravity - Urine 1.010 (1.005-1.025)
[2025-03-18 21:23] LABS: Alanine Aminotransferase 36 U/L (0-31); Albumin Level 4.9 g/dL (3.5-5.0); Alkaline Phosphatase 93 U/L (39-117); Anion Gap 14 (12-20); Aspartate Amino Transferase 22 U/L (5-31); Blood Urea Nitrogen 12 mg/dL (9-16); Calcium 9.4 mg/dL (8.4-10.2); Carbon Dioxide 22 mmol/L (22-29); Chloride 109 mmol/L (96-108); Creatinine Clr Calc Pharmacy 113.7; Estimated Glomerular Filt Rate > 60; Lipase 28 U/L (8-78); Magnesium 2.0 mg/dL (1.6-2.6); Potassium 3.9 mmol/L (3.3-5.1); Sodium 141 mmol/L (135-145); Total Protein 7.7 g/dL (6.5-8.0)
--- OUTSIDE RECORDS SUMMARY | 2025-03-18 23:21 | XMS_ITS | Clinical Summary ---
Author Organization [employer] Address [address] [place] [address] 7 [place] [address] Care Team Providers Care Timing Adjuster Name Role Phone Brenda Carreno MD Primary Care Provide r River Granger RN Unavailable [phone] Valery Banegas Unavailable Allergies Active Allergy Reactions Criticality Noted Date Comments Apple Fruit Extract 11/21/2022 Fruit Extracts 07/11/2022 Flavoring Agent (Non-Screening) 11/10 Pear 11/21/2022 Pineapple 11/21/2022 [place] Pulp 11/21/2022 Medications * This document contains information received from the source organization and may not represent a complete record from that organization. Blood Pressure Monitor kitIndications:El evated blood pressure reading Use as directed 3x/week 1 kit 3 Active levothyroxine (Synthroid, Levoxyl) 75 MCG tablet Take 75 mcg by mouth Once per day. 3 Active fluticasone (Flonase) 50 MCG/ACT nasal sprayIndications: Seasonal allergic rhinitis due to pollen Administer 1 spray into each nostril in the morning. 16 g 2 4 Active Probiotic Product (Up4 Probiotics Adult) capsuleIndication s:Other constipation Take 1 capsule by mouth Once per day. 30 capsule 2 4 Active hydrOXYzine HCl (Atarax) 25 MG tabletIndications :Anxiety Take 1 tablet (25 mg) by mouth every 8 (eight) hours if needed for itching. 30 tablet 4 Active Ketotifen Fumarate 0.035 % solutionIndicatio ns:Seasonal allergic rhinitis due to pollen Administer 1 drop into both eyes if needed in the morning and at bedtime (allergies). 5 mL 1 5 Active NIFEdipine XL (Procardia XL) 30 MG 24 hr tabletIndications :Primary hypertension Take 1 tablet (30 mg) by mouth Once per day. Do not crush, chew, or split. 30 tablet 2 5 01/08/20 26 Active albuterol 108 (90 Base) MCG/ACT inhalerIndication s:Mild intermittent asthma without complication Inhale 2 puffs every 6 (six) hours if needed for wheezing. 18 g 2 5 01/21/20 26 Active loratadine (Claritin) 10 MG tabletIndications :Seasonal allergic rhinitis due to pollen Take 1 tablet (10 mg) by mouth in the morning. 90 tablet 1 5 Active Active Problems Problem Noted Date Diagnosed Date Encounter for preventive care 01/20/2025 Palpitations 01/07/2025 Snoring 01/07/2025 Hypersomnia 01/07/2025 AVTAR (generalized anxiety disorder) 01/07/2025 Moderate major depression (CMS/HCC) 01/07/2025 Callus of foot 08/26/2024 Assessment & Plan (08/26/2024 10:55 AM EDT): I will refer patient to podiatry Premenstrual dysphoric syndrome 03/22/2024 Other constipation 01/19/2024 Moderate persistent asthma without complication 01/19/2024 Other chest pain 08/11/2023 Assessment & Plan (08/11/2023 1:13 PM EST): Likely musculoskeletal/costohondirits In light she is also having SOB with chest pain I will refer to cardiology EKG ordered today, patient could not stay to do it at the office I will print the order so that she can do it at the hospital as soon as she has a chance Ibuprofen 800mg Q 8hrs with full stomach Shortness of breath 08/11/2023 Primary hypertension 03/22/2023 Assessment & Plan (01/20/2025 11:18 AM EDT): I advised: - Aerobic exercise to reduce BP. Initial goal of 30 min walk 3-5x/week. Increase as tolerated. - low-sodium diet (goal: <2g/day) and heart healthy diet such as DASH to reduce BP and prevent ASCVD. - Home BP monitoring 1-2 x day with goal of <140/90. - Seek immediate medical attention for chest pain, palpitations, SOB, syncope, or sudden changes in mental status. - Do not change or discontinue current prescriptions without first consulting health care provider Assessment & Plan (01/07/2025 9:59 AM EDT): I advised low Na diet and weight reduction I decided to start her on nifedipine 30mg daily I advise to log er BP Assessment & Plan (08/26/2024 10:56 AM EDT): Advised patient low-sodium diet and weight reduction I also advised patient for management of her anxiety with meditation, yoga, cardiovascular exercise Advised patient to monitor her blood pressure at home and report back if her blood pressure is persistently above 140/90 Assessment & Plan (01/19/2024 3:18 PM EDT): - Aerobic exercise to reduce BP. Initial goal of 30 min walk 3-5x/week. Increase as tolerated. - low-sodium diet (goal: <2g/day) and heart healthy diet such as DASH to reduce BP and prevent ASCVD. - Home BP monitoring 1-2 x day with goal of <140/90. - Seek immediate medical attention for chest pain, palpitations, SOB, syncope, or sudden changes in mental status. - Do not change or discontinue current prescriptions without first consulting health care provider Assessment & Plan (12/21/2023 2:54 PM EDT): Now is control I will continue her hydrochlorothiazide 12.5mg daily I let her know if she plans to get or finds out she is to let us know right away I advise: - Aerobic exercise to reduce BP. Initial goal of 30 min walk 3-5x/week. Increase as tolerated. - low-sodium diet (goal: <2g/day) and heart healthy diet such as DASH to reduce BP and prevent ASCVD. - Home BP monitoring 1-2 x day with goal of <140/90. - Seek immediate medical attention for chest pain, palpitations, SOB, syncope, or sudden changes in mental status. - Do not change or discontinue current prescriptions without first consulting health care provider Assessment & Plan (10/03/2023 3:57 PM EDT): Today high, it is very likely anxiety plays a big role on her medication intolerability and high blood pressure readings, today I change the medication to hydrochlorothiazide 12.5mg daily Assessment & Plan (08/11/2023 1:11 PM EST): I advise low Na diet and weight reduction I advise to log her BP at home for the next 2 weeks and bring log with nurse, if BP is not at goal plan is to initiate labetalol 100mg BID Assessment & Plan (03/22/2023 10:48 AM EDT): On review of previous visits to appointments blood pressure is persistently elevated, I started her on nifedipine 30mg daily and schedule her for BP check with nurse if BP is not at goal plan is to increase nitrendipine to 60mg daily - Aerobic exercise to reduce BP. Initial goal of 30 min walk 3-5x/week. Increase as tolerated. - low-sodium diet (goal: <2g/day) and heart healthy diet such as DASH to reduce BP and prevent ASCVD. - Home BP monitoring 1-2 x day with goal of <140/90. - Seek immediate medical attention for chest pain, palpitations, SOB, syncope, or sudden changes in mental status. - Do not change or discontinue current prescriptions without first consulting health care provider Class 2 severe obesity with serious comorbidity and body mass index (BMI) of 37.0 to 37.9 in adult 03/22/2023 Assessment & Plan (01/07/2025 9:57 AM EDT): Extensive counseling done Referral to bariatric specialist done today Assessment & Plan (03/22/2023 10:50 AM EDT): I explain to patient first thyroid disease needs to be under control after this traditional diet and exercise should help with weight loss I vocational counselor to continue with healthy diet and exercise and f/u with endocrinology Heat apoplexy 12/16/2022 Assessment & Plan (12/16/2022 12:07 PM EDT): Discussed with patient importance of remaining hydrated, look for care home under extreme heat conditions Avoid drinking caffeinated drinks when outside or avoid heat after a heavy meal Check local news for extreme heat alerts, wear light clothes, and SPF of 15+ Abnormal finding on EKG 12/16/2022 Assessment & Plan (12/16/2022 12:06 PM EDT): Pt had ST depression and sinus tachycardia with symptoms that reverted with hydration, probably demand ischemia/changes Will refer to cardiology for further evaluation, changes are most likely physiological recommended to go to the ED if she develops similar symptoms Elevated blood pressure reading 12/16/2022 Assessment & Plan (12/16/2022 12:05 PM EDT): Check BP at home TIW and FU with PCP Counseled re low salt diet/increase moderate physical activity. Check home BP BIW and prn CP/MARCANO/SCHAEFFER Non smoking patient. [facility] 12/15/2022 Fatigue 12/15/2022 Assessment & Plan (04/29/2024 11:04 AM EST): Will place orders for lab work today Plan to f/u in 2 months to review lab work Backache 12/15/2022 Pelvic pain 11/22/2022 Assessment & Plan (11/22/2022 4:27 PM EDT): Waiting for US report Encounter for screening and preventative care Assessment & Plan (01/20/2025 11:18 AM EDT): See HPI Assessment & Plan (11/22/2022 4:25 PM EDT): Please refer to HPI Acquired hypothyroidism 07/11/2022 Assessment & Plan (08/26/2024 10:56 AM EDT): TSH will be checked on next appointment, continue with current levothyroxine dose Assessment & Plan (08/11/2023 1:16 PM EST): Patient is being follow by endocrinology she reports she has being stable no further adjustment to medication has being needed Anxiety 07/11/2022 Assessment & Plan (01/07/2025 9:57 AM EDT): [facility] was called today Assessment & Plan (05/20/2024 10:35 AM EST): PROGRESS NOTE: ID: Lois is a 28 y.o. straight-identified cis-female with previous documented hx of Anxiety and Mood Disorder MH services including OP Psychotherapy who presents for Anxiety and Depression During IBH Consult Lois presenting with depressed mood, crying spells , irritable mood, loss of interests/pleasure , change in appetite or weight overeating, changes in sleep difficulty falling asleep and difficulty staying asleep and excessive worry/anxiety, difficulty controlling worry, anxiety/worry associated to restlessness and/or feeling keyed-up/On edge , irritability, muscle tension , and sleep disturbance difficulty falling asleep and difficulty staying asleep , and Fear ; for a period of 18+ mo, for most or all symptoms in the context of increase in health concern, fear of dying, concern about her son care if something happens to her. PLAN: (check all that apply) New/Additional Services needed PCP management Off-site services for Continue with current services (defined as services in the past 12 months) Behavioral Health Integration Plan External OP psychiatry Referral Patient Self Plan Patient to utilize skills provided in intervention , [facility] as [facility], Comply with medication , Patient to reach out to [facility] as needed, and Patient to follow-up with external team Assessment & Plan (04/29/2024 11:04 AM EST): Patient will discontinue effexor Patient will continue atarax as prescribed Patient will continue to exercise at least 30 minutes daily Patient will continue with therapy once per week F/u in 2 months for anxiety f/u Assessment & Plan (03/22/2024 4:25 PM EDT): Counseling done Medication prescribed RTC 4 weeks televisit Assessment & Plan (01/19/2024 3:54 PM EDT): Controlled with current medication regimen and interventions Assessment & Plan (12/21/2023 2:55 PM EDT): We talked about non-medication interventions for anxiety including exercise, meditation, counseling, mindfulness practices. Also recommend consideration for medication start for persistent daily anxiety negatively impacting quality of life and activities. 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 Allergic rhinitis due to pollen 04/10/2017 Assessment & Plan (08/26/2024 10:55 AM EDT): I will refer patient to natural resources specialist Loratadine I will get the defined refill today Migraine 04/10/2017 Mild intermittent asthma 04/10/2017 Assessment & Plan (01/20/2025 11:18 AM EDT): Patient educated to avoid triggers Assessment & Plan (08/26/2024 10:55 AM EDT): Patient educated to avoid triggers Albuterol refill done today 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 Date Type Department Care Team Description 03/12/2025 Patient Outreach [address] [phone] Brenda Carreno MD Care Coordination ([facility] f/u) 03/12/2025 Patient Outreach [address] [address] Brenda Carreno MD Care Management ([facility]- f/u call) 02/28/2025 Patient Outreach [address] [address] Brenda Carreno MD Care Management ([facility]- f/u call) 02/21/2025 Patient Outreach [address] [phone] Brenda Carreno MD Care Coordination ([facility] f/u) 02/21/2025 Patient Outreach [address] [address] Brenda Carreno MD Care Management ([facility]- 1st f/u call lvm) 02/11/2025 Plan of Care Documentation [address] [address] 02/05/2025 Patient Outreach [address] [address] Brenda Carreno MD 02/05/2025 Patient Outreach [address] [address] Brenda Carreno MD Care Management ([facility]- initial assessment/ enrollment) 01/22/[address] [address] Brenda Carreno MD 01/22/2025 Patient Outreach [address] [address] Brenda Carreno MD Care Coordination ([facility] outreach) 01/22/2025 Patient Outreach [address] [address] Brenda Carreno MD Care Coordination (Labs) 01/20/2025 9:15 AM EDT Office Visit [address] [address] Brenda Carreno MD Mild intermittent asthma without complication (Primary Dx); Primary hypertension; Seasonal allergic rhinitis due to pollen; Encounter for screening and preventative care 01/20/[address] [address] Brenda Carreno MD [facility] (I informed the patient that she needs to have [facility] labs done, before the [facility] PPD form from [facility] is completed. She stated that she will have them done on 01/23/25 at the [facility] lab.) 01/20/2025 Travel 01/16/[address] [address] Brenda Carreno MD Chart Prep 01/13/2025 Patient Outreach [address] [phone] Brenda Carreno MD Pre-visit Planning (SDOH screening completed on 01/07/25 ) 01/08/2025 Patient Outreach [address] [phone] Brenda Carreno MD Care Coordination ([facility] outreach) 01/08/2025 Patient Outreach [address] [address] Brenda Carreno MD Care Coordination ([facility] chart review) 01/08/2025 Patient Outreach [address] [address] Brenda Carreno MD Care Management ([facility]- chart review) 01/08/2025 Patient Outreach [address] [phone] Brenda Carreno MD 01/07/2025 9:00 AM EDT Office Visit [address] [address] Brenda Carreno MD Primary hypertension; Shortness of breath; Palpitations; Snoring; Hypersomnia; Other chest pain; Anxiety; Class 2 severe obesity with serious comorbidity and body mass index (BMI) of 37.0 to 37.9 in adult, unspecified obesity type (CMS/[facility]) 01/07/2025 Travel 01/06/[address] [address] Brenda Carreno MD Chart Prep 01/06/[address] [address] Brenda Carreno MD 01/06/2025 Telephone [facility] [address] [place] [address] Brenda Carreno MD 12/31/2024 Patient Outreach [facility] [address] [place] [address] Brenda Carreno MD Pre-visit Planning ([facility] unable to reach LVM) 12/27/2024 Telephone [facility] [address] [place] [address] Chioma Enriquez, CN CHART PREP 12/23/2024 Telephone [facility] [address] [place] [address] Brenda Carreno MD Results from Last 3 Months Immunizations Immunization Administration Dates Next Due Influenza injectable quadriv alent IIV4 with preservative 03/07/2018 Influenza injectable quadriv alent preservative free 03/22/2023,05/17/2021,08/22/2019,2016 Influenza, seasonal, injecta ble, preservative free 08/26/2024 Pneumococcal Conjugate PCV 20 01/19/2024 Tdap 08/06/2019,04/10/2017 Family History Medical History Relation Name Comments Colon polyps Father Coronary artery disease Father Hypertension Father Colon cancer Father's Brother 5 paternal uncles with colon cancer, dx 40s-50s Breast cancer Father's Sister Breast cancer Mother's Sister Ovarian cancer Paternal Grandmother Relation Name Status Comments Father Father's Brother Father's Sister Mother's Sister Paternal Grandmother Social History Tobacco Use Types Packs/Day Years Used Date Smoking Tobacco: Never Passive Smoke Exposure: Never Smokeless Tobacco: Never Tobacco Cessation:Counseling Given: Not Answered Alcohol Use Standard Drinks/Week Comments Never 0 (1 standard drink = 0.6 oz pur e alcohol) Depression Answer Date Recorded Patient Health Questionnaire-9 Score 3 02/05/2025 Patient Health Questionnaire-9 Score 3 02/05/2025 Last PHQ-9: Questionnaire Data Not on file 0 02/05/2025 Housing Stability Answer Date Recorded What is [...] Answer Date Recorded Patient Health Questionnaire-2 Score 2 02/05/2025 Internet Access Answer Date Recorded Internet Access Q1 Yes 02/05/2025 Internet Access Q2 I do not want or need it 01/11 Comments No Intention Date Recorded Ambivalent about becoming (find ing) 11/18/2024 Sex and Gender Information Value Date Recorded Sex Assigned at Female 04/11/2022 10:15 AM EDT Legal Sex Female 10:15 AM EDT Gender Identity Female 04/11/2022 10:15 AM EDT Sexual Orientation Straight 04/11/2022 10 :15 AM EDT Last Filed Vital Signs Vital Sign Reading Time Taken Comments Blood Pressure 130/76 01/20/2025 9:25 AM EDT Pulse 80 01/20/2025 9:25 AM EDT Temperature 35.9 C (96.7 F) 01/20/2025 9:25 AM EDT Respiratory Rate 16 01/20/2025 9:25 AM EDT Oxygen Saturation 100% 11/18/2024 2:09 PM EDT Inhaled Oxygen Concentration - - Weight 99.5 kg (219 lb 4 oz) 01/20/2025 9:25 AM EDT Height 162.6 cm (5' 4 ) 01/20/2025 9:25 AM EDT Body Mass Index 37.63 01/20/2025 9:25 AM EDT Plan of Treatment Upcoming Encounters Date Type Department Care Team (Late st Contact Info) Description 04/23/2025 10:15 AM EST Office Visit [facility] [address] [place] [address] Brenda Carreno MD [address] [place] [address] Health Maintenance Due Date Last Done Comments HPV Vaccines (1 - 3-dose series) 2008 Hepatitis B Vaccines (1 of 3 - 19+ 3-dose series) 2012 COVID-19 Vaccine (2 - season) 2025 01/15/2021 Influenza Vaccine (#1) 2025 , 03/22/2023, 05/17/2021, Additional history exists Family Planning (PISQ) 11/18/2025 11/18/2024 Alcohol/Substance Use Screening 01/07/2026 01/07/2025 Disability Screening 01/07/2026 01/07/2025 Tobacco Screening 01/20/2026 01/20/2025 Depression Screening 02/05/2026 02/05/2025, 02/06/20 SDOH Screening 03/12/2026 03/12/2025 DTaP/Tdap/Td Vaccines (3 - Td or Tdap) 08/06/2029 08/06/2019, 04/10/2017 Cervical Cancer Screening 11/18/2029 HPV/Cotest 11/18/2029 11/18/2024 Pap Smear 11/18/2029 11/18/2024, 12/0 11/2020, 05/17/2021 Lipid Panel 01/20/2030 01/20/2025, 0306/2021, 04/19/2021 Zoster Vaccines (1 of 2) 08/14/2043 RSV Patients and Patients Aged 60 years or older (1 - 1-dose 75+ series) 2068 Pneumococcal Vaccine: Pediatrics (0 to 5 Years) and At-Risk Patients (6 to 49) Years Completed 01/19/2024 HIV Screening Completed 01/20/2025, 07/17/2019 Hepatitis C Screening Completed 01/20/2025 HIB Vaccines Aged Out No longer eligi [...] patient's age to complete this topic Meningococcal Vaccine Aged Out No nona tony eligible based on patient's age to complete this topic RSV under 20 months Aged Out No longe r eligible based on patient's age to complete this topic Rotavirus Vaccines Aged Out No longer eligible based on patient's age to complete this topic Procedures Procedure Name Priority Date/Time Associated Diagnosis Comments URINALYSIS, COMPLETE, WITH REFLEX TO CULTURE Routine 03/18/2025 9:02 PM EDT HCG, TOTAL, QN Routine 03/18/2025 8:56 PM EDT LIPASE Routine 03/18/2025 8:56 PM EDT MAGNESIUM Routine 03/18/2025 8:56 PM EDT COMPREHENSIVE METABOLIC PANEL Routine 03/18/2025 8:56 PM EDT CBC WITH AUTO DIFFERENTIAL Routine 03/18/2025 8:56 PM EDT T-SPOT(R).TB Routine 01/23/2025 1:42 PM EDT Screening examination for pulmonary tuberculosis TSH W/REFLEX TO FT4 Routine 01/20/2025 9 :54 AM EDT Encounter for screening and preventative care VITAMIN D,25-OH,TOTAL,IA Routine 01/20/2025 9:54 AM EDT [...] EDT Encounter for screening and preventative care AMB REFERRAL TO PODIATRY Routine 01/07/2025 Callus of foot US PELVIS TRANSVAGINAL Urgent 12/16/2024 10:26 AM EDT Pelvic pain HPV DNA, LOW/HIGH RISK Routine 11/18/2024 2:31 PM EDT PAP SMEAR Routine 11/18/2024 2:31 PM EDT Cervical cancer screening from Last 3 Months or Most Recently Relevant to Health Maintenance Results * Urinalysis, Complete, with Reflex to Culture (03/18/2025 9:02 PM EDT) Color Urine Yellow [facility] Appearance Urine Clear [facility] PH 7.0 5.0 - 9.0 [facility] Glucose Urine UA Negative Negative mg/dL [facility] Urine Blood Negative Negative [facility] Specific [place] - Urine 1.010 1.005 - 1.025 [facility] Urine Protein Negative Neg-Trace mg/dL [facility] Urine Ketones Negative Negative mg/dL [facility] Nitrite Urine Negative Negative [facility] Leukocyte Esterase Urine Negative Negative [facility] RBC Urine 0-2 0 - 2 /HPF [facility] Urine WBC 0-5 0 - 5 /HPF [facility] Urine Squamous Epithelial Cell 0-2 0 - 2 /HPF [facility] Urine Bacteria None Seen None Seen [facility] Hyaline Casts, Urine 0-2 0 - 2 /LPF [facility] 03/18/2025 9:02 PM EDT 03/18/2025 9:05 PM EDT Narrative [facility] - 03/18/2025 9:24 PM EDT [id number], Clean Catch us Generic External Data Provider LAB URINE ORDERAB LES Final Result [facility] [address] [place] [address] [phone] * CBC auto differential (03/18/2025 8:56 PM EDT) Only the most recent of2 resultswithin the time period is included. White Blood Count 9.0 4.8 - 10.8 X10*3/uL [facility] Red Blood Count 4.72 4.20 - 5.50 X10*6/uL [facility] Hemoglobin 13.5 12.0 - 16.0 g/dl [facility] Hematocrit 40.4 37.0 - 47.0 % [facility] Mean Corpuscular Volume 85.6 80.0 - 98.0 fL [facility] Mean Corpuscular Hemoglobin 28.6 27.0 - 33.0 pg [facility] Mean Corpuscular HGB Conc 33.4 31.0 - 35.0 g/dl [facility] Red Cell Distribution Width 11.9 11.0 - 16.0 % [facility] Platelet Count 287 160 - 400 X10*3/uL [facility] Mean Platelet Volume 9.9 9.4 - 12.3 fL [facility] Neutrophils Percent Auto 65.8 45 - 73 % [facility] Imm Gran Pct Auto 0.2 0.0 - 0.4 % [facility] Lymphocytes Percent Auto 25.6 20 - 40 % [facility] Monocytes Percent Auto 5.6 2 - 11 % [facility] Eosinophils Percent Auto 2.4 0 - 4 % [facility] Basophils Percent Auto 0.4 0 - 2 % [facility] NRBC Pct Auto 0.0 0.0 - 0.2 /100WBC [facility] Neutrophils Absolute Auto 5.9 2.0 - 8.3 x10*3/uL [facility] Imm Gran Abs Auto 0.02 0.00 - 0.03 X10*3/uL [facility] Lymphocytes Absolute Auto 2.3 1.2 - 4.9 X10*3/uL [facility] Monocytes Absolute Auto 0.5 0.1 - 1.2 X10*3/uL [facility] Eosinophils Absolute Auto 0.2 0.0 - 0.4 X10*3/uL [facility] Basophils Absolute Auto 0.0 0.0 - 0.2 X10*3/uL [facility] NRBC Abs Auto 0.000 0.0 - 0.012 X10*3/uL [facility] 03/18/2025 8:56 PM EDT 03/18/2025 9:00 PM EDT us Generic External Data Provider LAB BLOOD ORDERAB LES Final Result [facility] [address] [place] [phone] * hCG, Total, Quantitative (03/18/2025 8:56 PM EDT) HCG Quantitative <2 mIU/mL [facility] Comment:Weeks post LMP Appro ximate hCG(Last Menstrual Period) Range (mIU/ml)3 - 4 weeks 9 - 1304 - 5 weeks 75 - 2,6005 - 6 weeks 850 - 20,8006 - 7 weeks 4000 - 100,2007 - 12 weeks 11,500 - 289,75715 - 16 weeks 18,300 - 137,88063 - 29 weeks (2nd trimester) 1,400 - 53,91126 - 41 weeks (3rd trimester) 940 - 60,000The Lilly B- hCG assay is used for the early detection ofpregnancy; it cannot be used to diagnose any conditionunrelated to . If a B-hCG level is not supportedby the clinical evidence, results should be confirmed by analternative method (qualitative urine hCG, for example). 03/18/2025 8:56 PM EDT 03/18/2025 9:00 PM EDT Generic External Data Provider LAB BLOOD ORDERAB LES Final Result Performing Organization Address [facility] Phone Number [facility] [address] [place] [address] [phone] * Magnesium (03/18/2025 8:56 PM EDT) Pathologist [facility] Magnesium 2.0 1.6 - 2.6 mg/dL [facility] 03/18/2025 8:56 PM EDT 03/18/2025 9:00 PM EDT Generic External Data Provider LAB BLOOD ORDERAB LES Final Result Performing Organization Address [facility] Number [facility] [address] [place] [address] [phone] * Lipase (03/18/2025 8:56 PM EDT) Pathologist [facility] Lipase 28 8 - 78 U/L [facility] 03/18/2025 8:56 PM EDT 03/18/2025 9:00 PM EDT Generic External Data Provider LAB BLOOD ORDERAB LES Final Result Performing Organization Address [facility] Phone Number [facility] [address] [place] [address] [phone] * (ABNORMAL) Comprehensive Metabolic Panel (03/18/2025 8:56 PM EDT) Only the most recent of2 resultswithin the time period is included. Sodium 141 135 - 145 mmol/L [facility] Potassium 3.9 3.3 - 5.1 mmol/L [facility] Chloride 109(H) 96 - 108 mmol/L [facility] Carbon Dioxide 22 22 - 29 mmol/L [facility] Anion Gap 14 12 - 20 [facility] Urea Nitrogen (BUN) 12 9 - 16 mg/dL [facility] Creatinine, Serum 0.80 0.5 - 1.4 mg/dL [facility] Creatinine Clr Calc Pharmacy 113.7 [facility] Comment:Provided height and weight: 162.56 cm,94.801 kg.eGFR (calculated from the MDRD study equation) and eCrCl(calculated from the Cockcroft-Gault equation) are based ondifferent parameters and may not yield comparable results.If eCrCl result is absurd, please check patient'sheight/weight. Estimated Glomerular Filt Rate >60 [facility] Comment:Chronic Kidney Disea se: Estimated GFR < 60 mL/min/1.18t4Wvkuad Kidney Disease: Estimated GFR < 15 mL/min/1.73m2 Glucose 93 60 - 115 mg/dL [facility] Calcium 9.4 8.4 - 10.2 mg/dL [facility] Bilirubin, Total 0.5 0.0 - 1.0 mg/dL [facility] Aspartate Amino Transferase 22 5 - 31 U/L [facility] Alanine Aminotransferase 36(H) 0 - 31 U/L [facility] Total Protein 7.7 6.5 - 8.0 g/dL [facility] Albumin Level 4.9 3.5 - 5.0 g/dL [facility] Alkaline Phosphatase 93 39 - 117 U/L [facility] 03/18/2025 8:56 PM EDT 03/18/2025 9:00 PM EDT us Generic External Data Provider LAB BLOOD ORDERAB LES Final Result [facility] [address] [place] [phone] * T-SPOT??.TB (01/23/2025 1:42 PM EDT) T Spot TB Negative Negative [facility] Comment:A negative test resu lt does not exclude the possibilityof exposure to or infection with Mycobacteriumtuberculosis (M. tuberculosis). Patients with recentexposure to TB infected individuals exhibiting anegative T-SPOT.TB result should be considered forretesting within 6 weeks or if other relevant clinicalsymptoms indicate. Results from T-SPOT.TB testing mustbe used in conjunction with each individual'sepidemiological history, current medical status,and results of other diagnostic evaluations.The T-SPOT.TB test is qualitative and results arereported as positive, borderline, or negative, giventhat the test controls perform as expected. In linewith the Centers for Disease Control and Prevention's2010 recommendation to report quantitative measurementsalongside the qualitative result, the laboratoryprovides spot counts for informational purposes only.The T-SPOT.TB test should not be interpreted as aquantitative test. TS PANEL A 0 [facility] TS PANEL B 0 [facility] Negative Control Passed [facility] Positive Control Passed [facility] Comment:For additional infor is[place], please refer [email or web address](This link is being provided for informational/educational purposes only.)REPORT COMMENT:REC'D AT [facility] TEST WAS PERFORMED AT:[employer] [place]/[facility] [place] [address]USAWCKWOMAR RAMSEY MD,PHD 01/23/2025 1:42 PM EDT 01/23/2025 4:25 PM EDT us Brenda Jang MD LAB BLOOD ORDERABLES Final Result [facility] [address] [place] [phone] * Vitamin D, 25-Hydroxy, Total, Immunoassay (01/20/2025 9:54 AM EDT) Vitamin D 25-OH Total 52.5 >30 ng/mL [facility] Comment: Health Based Reference Values*< 20 ng/mL Xukzhmpjb85-26 ng/mL Insufficient> 30 ng/mL Sufficient*Cathie LOCKE. N [...] BLOOD ORDERABLES Final Result Performing Organization Address [facility]/ZIP Co de Phone Number [facility] [address] [place] [address] [phone] * TSH with Reflex to Free T4 (01/20/2025 9:54 AM EDT) TSH reflex Free T4 1.09 0.32 - 4.0 uIU/mL [facility] Blood Venous blood specimen / Unknown 01/20/2025 9:54 AM EDT 01/20/2025 11:22 AM EDT us Brenda Jang MD LAB BLOOD ORDERABLES Final Result Performing Organization Address [facility]/ZIP Co de Phone Number [facility] [address] [place] [address] [phone] * Hepatitis C Antibody with Reflex to HCV, RNA, Quantitative, Real-Time PCR (01/20/2025 9:54 AM EDT) Hepatitis C Antibody Nonreactive Nonreactive [facility] Comment:Antibodies to HCV no t detected; does not exclude early acuteHCV infection. Blood Venous blood specimen / Unknown 01/20/2025 9:54 AM EDT 01/20/2025 11:22 AM EDT us Brenda Jang MD LAB BLOOD ORDERABLES Final Result Performing Organization Address [facility] Co de Phone Number [facility] [address] [place] [address] [phone] * HIV-1/2 Antigen and Antibodies, Fourth Generation, with Reflexes (01/20/2025 9:54 AM EDT) HIV AB/AG Nonreactive Nonreactive [facility] Comment:HIV-1 p24 Ag and/or HIV-1/HIV-2 Ab not detected.A test result that is nonreactive does not exclude thepossibility of exposure to or infection with HIV-1 and/orHIV-2. Nonreactive results in this assay for individualswith prior exposure to HIV-1 and/or HIV-2 may be due toantigen and antibody levels that are below the limit ofdetection of this assay.The [place] [facility] HIV Ag/Ab Combo assay result andsupplemental assay results should be interpreted inconjunction with the patient's clinical presentation,history and other laboratory results. If the results areinconsistent with clinical evidence, additional testing issuggested to confirm the result. Blood Venous blood specimen / Unknown 01/20/2025 9:54 AM EDT 01/20/2025 11:22 AM EDT us Brenda Jang MD LAB BLOOD ORDERABLES Final Result Performing Organization Address [facility]/ZIP Co de Phone Number [facility] [address] [place] [address] [phone] * Hemoglobin A1c (01/20/2025 9:54 AM EDT) Hemoglobin A1c 5.4 <6.0 % [facility] Comment:Hemoglobin A1C Refer ence Range Adults: 4.8 - 6.0 % Non diabetic: < 6.0 % Goal: < 7.0 %Additional Action Suggested: > 8.0 %Note: Hemoglobin A1c results are invalid for patients with abnormal amounts of HbF. Blood transfusions may impact the HbA1c concentration in the patient sample. Estimated Average Glucose 108 mg/dL [facility] Comment:eAG = Estimated ave rage glucose which is %A1C expressed asaverage glucose, using the formula of the L5O-FpdxzphEfznkgy Glucose study (ADAG), Diabetes Care, Vol.31,#8,Jan. 2007 Blood Venous blood specimen / Unknown 01/20/2025 9:54 AM EDT 01/20/2025 11:18 AM EDT Brenda Jang MD LAB BLOOD ORDERABLES Final Result [facility] [address] [place] [address] [phone] * (ABNORMAL) Lipid Panel, Standard (01/20/2025 9:54 AM EDT) Triglycerides 140 <150 mg/dL [facility] Comment:Desirable Triglyceri de: less than 150 mg/dLBorderline High Triglyceride 150-199 mg/dLHigh Triglyceride: 200-499 mg/dLVery High Triglyceride: greater than or equal to 5OO mg/dL Cholesterol 247(H) <200 mg/dL [facility] Comment:Desirable Cholestero l: less than 200 mg/dLBorderline High Cholesterol: 200-239 mg/dLHigh Cholesterol: greater than 239 mg/dL LDL Cholesterol Calculated 168(H) <100 mg/dL [facility] Comment:Desirable LDL: less than 100 mg/dLNear Optimal/Above Optimal LDL: 110- 129 mg/dLBorderline High LDL: 130-159 mg/dLHigh LDL: 160-189 mg/dLVery High LDL: greater than or equal to 190 mg/dL HDL Cholesterol 51 >40 mg/dL [facility] Comment:Desirable HDL: great er than 40 mg/dL Note: This HDL assay may give artificially low results in patients with liver disease. Blood Venous blood specimen / Unknown 01/20/2025 9:54 AM EDT 01/20/2025 11:22 AM EDT us Brenda Jang MD LAB BLOOD ORDERABLES Final Result [facility] [address] [place] [address] [phone] * Referral to Podiatry (01/07/2025) us Brenda Jang MD OUTPATIENT REFERRAL O RDERABLES Final Result * US Pelvis Transvaginal (12/16/2024 10:26 AM EDT) Anatomical Region Laterality Modality Pelvis Ultrasound 12/16/2024 10:2 6 AM EDT Narrative 12/16/2024 11:06 AM EDT [address] [address] Ultrasound Report Signed Patient: Lois Simpson MR#: [id number] 2 : 1995 Acct:[id number] Age/Sex: 29 / F ADM Date: 12/16/24 Loc: HO.US Attending Dr: Chioma Enriquez CNM Ordering Physician: CHIOMA ENRIQUEZ CNM Date of Service: 12/16/24 Procedure(s): US pelvic and transvaginal Accession Number(s): [id number] cc: Brenda Carreno MD; CHIOMA ENRIQUEZ CNM EXAMINATION: US PELVIS CLINICAL INFORMATION: Left lower quadrant pain. COMPARISON: 06/19/2022. TECHNIQUE: Ultrasound of the pelvis is performed using both transabdominal and transvaginal transducers along with Doppler. Transvaginal imaging is performed due to inadequate visualization transabdominally. FINDINGS: Uterus: The uterus is anteverted and measures 8.7 x 3.8 x 4.7 cm. Cervix is normal in appearance. The double wall endometrial thickness is 10 mm. It is uniform. The uterus is smooth in contour and has normal myometrial echogenicity. There is a 0.7 x 1.0 x 0.9 cm ventral intramural fibroid in the proximal lower uterine segment. Adnexa: Both ovaries are visualized. There is normal color flow to the adnexa. There is no ovarian torsion. There is no pelvic ascites or fluid collection. There are no adnexal masses. Right ovary measures 3.1 x 2.0 x 2.6 cm. Volume = 8.2 mL. Normal sonographic appearance. Left ovary measures 3.1 x 1.7 x 2.3 cm. Volume = 6.4 mL. Normal sonographic appearance. US/US pelvic and transvaginal IMPRESSION: 1. Uterus demonstrating a ventral lower uterine segment intramural fibroid measuring 0.7 x 1.0 x 0.9 cm. Uterus otherwise normal. 2. Normal endometrium at 10 mm. 3. Normal ovaries bilaterally. No adnexal abnormalities. 4. No free fluid. Electronically signed by: Armando Arechiga MD 12/16/2024 11:03 AM EDT Dictated By: Armando Arechiga MD Signed By: <Electronically signed by Armando Arechiga MD in OV> 12/16/24 1103 DD/ 1026 TD/TT: 12/16/24 1045 Geophysical Prospecting Surveyor: Procedure Note Donotuseinterpreter, Image - 12/16/[address] [address] Ultrasound Report Signed Patient: Familia Simpson#: [id number] 2 : 1995Acct:[id number] Age/Sex: Date: 12/16/24 Loc: HO.US Attending Dr: Chioma Enriquez CNM Ordering Physician: CHIOMA ENRIQUEZ CNM Date of Service: 12/16/24 Procedure(s): US pelvic and transvaginal Accession Number(s): [id number] cc: Brenda Carreno MD; CHIOMA ENRIQUEZ CNM EXAMINATION: US PELVIS CLINICAL INFORMATION: Left lower quadrant pain. COMPARISON: 06/19/2022. TECHNIQUE: Ultrasound of the pelvis is performed using both transabdominal and transvaginal transducers along with Doppler. Transvaginal imaging is performed due to inadequate visualization transabdominally. FINDINGS: Uterus: The uterus is anteverted and measures 8.7 x 3.8 x 4.7 cm. Cervix is normal in appearance. The double wall endometrial thickness is 10 mm. It is uniform. The uterus is smooth in contour and has normal myometrial echogenicity. There is a 0.7 x 1.0 x 0.9 cm ventral intramural fibroid in the proximal lower uterine segment. Adnexa: Both ovaries are visualized. There is normal color flow to the adnexa. There is no ovarian torsion. There is no pelvic ascites or fluid collection. There are no adnexal masses. Right ovary measures 3.1 x 2.0 x 2.6 cm. Volume = 8.2 mL. Normal sonographic appearance. Left ovary measures 3.1 x 1.7 x 2.3 cm. Volume = 6.4 mL. Normal sonographic appearance. US/US pelvic and transvaginal IMPRESSION: 1. Uterus demonstrating a ventral lower uterine segment intramural fibroid measuring 0.7 x 1.0 x 0.9 cm. Uterus otherwise normal. 2. Normal endometrium at 10 mm. 3. Normal ovaries bilaterally. No adnexal abnormalities. 4. No free fluid. Electronically signed by: Armando Arechiga MD 12/16/2024 11:03 AM EDT Dictated By: Armando Arechiga MD Signed By: <Electronically signed by Armando Arechiga MD in OV> 12/16/24 1103 DD/ 1026 TD/TT: 12/16/24 1045 Geophysical Prospecting Surveyor: Chioma Enriquez CNM IMG US PROCEDURES Final R esult * HPV DNA, Low/High Risk (11/18/2024 2:31 PM EDT) HPV High Risk Negative Negative [facility] HPV Genotype 16 Negative Negative [facility] HPV Genotype 18 Negative Negative [facility] Comment:HPV testing performe d at [facility] (CLIA#[id number]), [address] [place] [address].Testing for HPV was performed using the Vincent JOAO 6800system. The presence of HPV in the female genital tract isassociated with a number of diseases, including cervicalcarcinoma. The HPV DNA high risk pool tests for HPV 31, 33,35, 39, 45, 51, 52, 56, 58, 59, 66 and 68. The testing forHPV 16 and 18 genotypes has also been performed. A positiveresult indicates detection of nucleic acid sequences fromone or more subtypes, whereas a negative result indicatessuch sequences were not detected. 11/18/2024 2:31 PM EDT 11/19/2024 8:02 AM EDT us Chioma Enriquez [facility] BLOOD ORDERABLES Susannah nuñez Result [facility] [address] [place] [phone] * Pap Smear (11/18/2024 2:31 PM EDT) Swab Cervix uteri structure / Unknown 11/18/2024 2:31 PM EDT 11/19/2024 8:02 AM EDT Narrative [facility] - 11/21/2024 12:18 PM EDT ----- ------- Name: Ward Simpsonalva Age/Sex: 29/F : 1995 Unit#: [id number] Attend Dr: Re11/18/24 Status: [facility]ch[facility] ----- ------- SPEC : [id number] RECD: 11/19/24 STATUS: VARSHA CAVAZOS NUM: [id number] MARIBEL: 11/18/24-[address] [facility] [address]: CHIOMA ENRIQUEZ CNM ENTERED: 11/19/24 SP TYPE: Pap Smr OT DR: ORDERED: Pap Smear Interpretation Satisfactory for evaluation. Negative for intraepithelial lesion or malignancy. HPV High Risk: Negative HPV Genotyping 16: Negative HPV Genotyping 18: Negative Clinical Information LMP: Unknown date Previous PAP test: 2020 NIL, WNL Other history: Cervical cancer screening Material Received ThinPrep-Cervical PAP Disclaimer As of April 03, 2024, the technical services to include automated prescreening performed by the ThinPrep Imaging System, PAP screening and HPV testing will be performed at [facility] (CLIA #[id number]), [address] [place] [address]. Testing for HPV was performed using the Vincent JOAO 6800 system. The presence of HPV in the female genital tract is associated with a number of diseases, including cervical carcinoma. The HPV DNA high risk pool tests for HPV 31, 33, 35, 39, 45, 51, 52, 56, 58, 59, 66 and 68. The testing for HPV 16 and 18 genotypes has also been performed. A positive result indicates detection of nucleic acid sequences from one or more subtypes, whereas a negative result indicates such sequences were not detected. All professional services are performed by [facility] ([address] [place] [address]; ; CLIA #[id number]). The PAP Test is a screening procedure with the inherent possibility of both false negative and false positive results. Results should be interpreted in the context of historic and current clinical findings. Reliability of the PAP Test is enhanced by performing the test on a regular repetitive basis. ----- ------- Signed (signature on file) MONIQUE Velasquez ([facility]) 11/21/24 1218 ----- ------- END OF REPORT Chioma Enriquez [facility] CYTOLOGY ORDERABLES F inal Result [facility] [address] [place] [address] [phone] from Last 3 Months or Most Recently Relevant to Health Maintenance Insurance [employer] C3 Care Teams Timing Adjuster Relationship Specialty Start Date End Date Brenda Carreno MD [address] [place] [phone] PCP - General Family Medicine 02/21/18 River Granger RN [address] [place] [phone] Registered Nurse Family Medicine 01/08/25 Valery Banegas 01/08/25
--- OUTSIDE RECORDS SUMMARY | 2025-03-18 23:21 | XMS_ITS | Encounter Summary ---
Author Organization [employer] Address [address] [place] [address] [address] [place] [address] Care Team Providers Care Landscaper Name Role Phone Brenda Carreno MD Primary Care Provide r River Granger RN Unavailable [phone] Valery Banegas Unavailable Reason for Visit * Reason Onset Date Comments Medication Question 10/17/2022 Encounter Details Date Type Department Care Team (Late st Contact Info) Description 10/17/2022 Telephone [facility] [address] [place], [place] [phone] Brenda Carreno MD [address] [place], [place] [phone] Medication Question Social History Tobacco Use Types Packs/Day Years Used Date Smoking Tobacco: Never Smokeless Tobacco: Never Comments No Sex and Gender Information Value Date Recorded Sex Assigned at Female 04/11/2022 10:15 AM EDT Legal Sex Female 10:15 AM EDT Gender Identity Female 04/11/2022 10:15 AM EDT Sexual Orientation Straight 04/11/2022 10 :15 AM EDT COVID-19 Exposure Response Date Recorded In the last 10 days, have yo u been in contact with someone who was confirmed or suspected to have Coronavirus/COVID-19? 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 documented in this encounter Plan of Treatment Upcoming Encounters Date Type Department Care Team (Late st Contact Info) Description 04/23/2025 10:15 AM EST Office Visit [facility] [address] [place], [place] [phone] Brenda Carreno MD [address] [place], [place] [phone] documented as of this encounter Visit Diagnoses Not on filedocumented in this encounter Care Teams Landscaper Relationship Specialty Start Date End Date Brenda Carreno MD [address] [place], [place] [phone] PCP - General Family Medicine 02/21/18 River Granger RN [address] [place] [phone] Registered Nurse Family Medicine 01/08/25 Valery Banegas 01/08/25 documented as of this encounter
--- OUTSIDE RECORDS SUMMARY | 2025-03-18 23:21 | XMS_ITS | Encounter Summary ---
Author Organization [employer] Address [address] [facility] [address] [place] [address] Care Team Providers Care Fiber Optic Splicer Name Role Phone Brenda Carreno MD Primary Care Provide r River Granger RN Unavailable [phone] Valery Banegas Unavailable Reason for Visit * Reason Comments Med Refill Encounter Details Date Type Department Care Team (Late st Contact Info) Description 09/21/2023 Refill [facility] [address] [place], [place] [phone] Brenda Carreno MD [address] [place], [place] [phone] Seasonal allergic rhinitis due to pollen Social [...] Description 04/23/2025 10:15 AM EST Office Visit [facility] [address] [place] [phone] Brenda Carreno MD [address] [place] [phone] documented as of this encounter Visit Diagnoses Diagnosis Seasonal allergic rhinitis due to pollen documented in this encounter Additional Health Concerns Assessment Noted Time PHQ-9 Depression Total Score: 2 11/22/19 23 9:22 AM EDT documented as of this encounter Care Teams Fiber Optic Splicer Relationship Specialty Start Date End Date Brenda Carreno MD [address] [place] [address] PCP - General Family Medicine 02/21/18 River Granger RN [address] [place] [phone] Registered Nurse Family Medicine 01/08/25 Valery Banegas 01/08/25 documented as of this encounter
--- OUTSIDE RECORDS SUMMARY | 2025-03-18 23:21 | XMS_ITS | Clinical Summary ---
Author Organization [facility] Address [address] [place] [address] Care Team Providers Care Automatic Mold Sander Name Role Phone Unavailable Primary Care Provider [...] Fruit Extracts 07/11/2022 Pear 11/21/2022 Pineapple 11/21/2022 Dulce 11/21/2022 Medications blood pressure monitor Use 1 Kit as directed 2 to 3 (two to three) times daily as needed for other reason (BP) 3 Active albuterol HFA 90 mcg/actuation inhaler Inhale 2 Puffs into the lungs every 6 (six) hours as needed 4 Active fluticasone (FLONASE) 50 mcg/actuation nasal spray Place 1 [place] in both nostrils once daily 4 Active [...] ons:Moderate episode of recurrent major depressive disorder Take 1 Capsule by mouth 3 (three) times daily as needed for anxiety for up to 30 days 90 Capsule 1 5 Active Active Problems Problem Noted Date Diagnosed Date Class 2 obesity 07/11/2024 Premenstrual dysphoric syndrome 03/22/2024 Moderate persistent asthma without complication 01/19/2024 Other constipation 01/19/2024 Other chest pain 08/11/2023 Shortness of breath 08/11/2023 Class 2 severe obesity with serious comorbidity and body mass index (BMI) of 36.0 to 36.9 in adult 03/22/2023 Primary hypertension 03/22/2023 Abnormal finding on EKG 12/16/2022 Elevated blood pressure reading 12/16/2022 Heat stroke 12/16/2022 Discharge from nipple 12/15/2022 Fatigue 12/15/2022 Backache 12/15/2022 Pelvic pain 11/22/2022 Encounter for screening and preventative care Acquired hypothyroidism 07/11/2022 Anxiety 07/11/2022 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 Medication: [...] of consistent follow-up care. Mild intermittent asthma 04/10/2017 Immunizations Immunization Administration Dates Next Due [...] Cervical Cancer Screening 2014 Pap Smear 2014 Imm-HPV (1 - 3-dose SCDM series) 2020 Alcohol and Drug Screen 06/12/2024 Lipid Screening 09/09/2024 09/09/2021 [id number] ( season) 2025 021 Imm-Influenza (#1) 2025 08/26/2024, 1 , 05/17/2021, Additional history exists TSH Monitoring 05/20/2025 05/20/2024 Tobacco Screening 07/11/2025 07/11/2024 Imm-DTaP/Tdap/Td (3 - Td or Tdap) 08/06/2029 020, 04/10/2017 Imm-Pneumococcal Completed 01/19/2024 Cervical Ablation/Cold-Knife Conization Discontinued Cervical Cryotherapy Discontinued Colposcopy Discontinued Endometrial Biopsy Discontinued Excision/Leep Discontinued HPV Genotyping Discontinued Vaginal Pap Discontinued Vulvoscopy Discontinued Insurance [facility] [place] MEDICAID
--- OUTSIDE RECORDS SUMMARY | 2025-03-18 23:21 | XMS_ITS | Encounter Summary ---
Author Organization [employer] Address [address] [facility] 7t [place] [address] Care Team Providers Care Automotive Parts Manager Name Role Phone Brenda Carreno MD Primary Care Provide r River Granger RN Unavailable [phone] Valery Banegas Unavailable Encounter Details Date Type Department Care Team (Late st Contact Info) Description 11/07/2024 Orders Only [facility] [address] [place], [place] [phone] Brenda Carreno MD [address] [place], [place] [phone] Social History Tobacco Use Types Packs/Day Years Used Date Smoking Tobacco: Never Passive Smoke Exposure: Never Smokeless Tobacco: Never Alcohol Use Standard Drinks/Week Comments Never 0 (1 standard drink = 0.6 oz pur e alcohol) Depression Answer Date Recorded Patient Health Questionnaire-9 Score 5 05/20/2024 Patient Health Questionnaire-9 Score 5 05/20/2024 Last PHQ-9: Questionnaire Data Not on file 1 07/21/2023 Housing Stability Answer Date Recorded What is [...] Date Recorded Patient Health Questionnaire-2 Score 2 05/20/2024 Internet Access Answer Date Recorded Internet Access Q1 Yes 08/16/2024 Internet Access Q2 Not on file 08/16/2024 Comments No Sex and Gender Information Value [...] Description 04/23/2025 10:15 AM EST Office Visit [facility] [address] [place] [phone] Brenda Carreno MD [address] [place] [address] documented as of this encounter Procedures Procedure Name Priority Date/Time Associated Diagnosis Comments URINALYSIS, COMPLETE, WITH REFLEX TO CULTURE Routine 03/18/2025 9:02 PM EDT CBC WITH AUTO DIFFERENTIAL Routine 03/18/2025 8:56 PM EDT HCG, TOTAL, QN Routine 03/18/2025 8:56 PM EDT MAGNESIUM Routine 03/18/2025 8:56 PM EDT LIPASE Routine 03/18/2025 8:56 PM EDT COMPREHENSIVE METABOLIC PANEL Routine 03/18/2025 8:56 PM EDT HPV DNA, LOW/HIGH RISK Routine 2:31 PM EDT documented in this encounter Results * Urinalysis, Complete, with Reflex to Culture (03/18/2025 9:02 PM EDT) Color Urine Yellow [facility] Appearance Urine Clear [facility] PH 7.0 5.0 - 9.0 [facility] Glucose Urine UA Negative Negative mg/dL [facility] Urine Blood Negative Negative [facility] Specific Browning - Urine 1.010 1.005 - 1.025 [facility] Urine Protein Negative Neg-Trace mg/dL [facility] Urine Ketones Negative Negative mg/dL [facility] Nitrite Urine Negative Negative [facility] Leukocyte Esterase Urine Negative Negative [facility] RBC Urine 0-2 0 - 2 /HPF [facility] Urine WBC 0-5 0 - 5 /HPF [facility] Urine Squamous Epithelial Cell 0-2 0 - 2 /HPF [facility] Urine Bacteria None Seen None Seen [facility] Hyaline Casts, Urine 0-2 0 - 2 /LPF [facility] 03/18/2025 9:02 PM EDT 03/18/2025 9:05 PM EDT Narrative [facility] - 03/18/2025 9:24 PM EDT [id number], [employer] us Generic External Data Provider LAB URINE ORDERAB LES Final Result [facility] [address] [place] [address] [phone] * hCG, Total, Quantitative (03/18/2025 8:56 PM EDT) HCG Quantitative <2 mIU/mL [facility] Comment:Weeks post LMP Appro ximate hCG(Last Menstrual Period) Range (mIU/ml)3 - 4 weeks 9 - 1304 - 5 weeks 75 - 2,6005 - 6 weeks 850 - 20,8006 - 7 weeks 4000 - 100,2007 - 12 weeks 11,500 - 289,24113 - 16 weeks 18,300 - 137,71481 - 29 weeks (2nd trimester) 1,400 - 53,98451 - 41 weeks (3rd trimester) 940 - [...] ORDERAB LES Final Result Performing Organization Address [facility] Co de Phone Number [facility] [address] [place] [phone] * Lipase (03/18/2025 8:56 PM EDT) Lipase 28 8 - 78 U/L [facility] 03/18/2025 8:56 PM EDT 03/18/2025 9:00 PM EDT us Generic External Data Provider LAB BLOOD ORDERAB LES Final Result Performing Organization Address [facility] Co de Phone Number [facility] [address] [place] [phone] * Magnesium (03/18/2025 8:56 PM EDT) Magnesium 2.0 1.6 - 2.6 mg/dL [facility] 03/18/2025 8:56 PM EDT 03/18/2025 9:00 PM EDT Generic External Data Provider LAB BLOOD ORDERAB LES Final Result Performing Organization Address [facility] Co de Phone Number [facility] [address] [place] [phone] * (ABNORMAL) Comprehensive Metabolic Panel (03/18/2025 8:56 PM EDT) Sodium 141 135 - 145 mmol/L [facility] Potassium 3.9 3.3 - 5.1 mmol/L [facility] Chloride 109(H) 96 - 108 mmol/L [facility] Carbon Dioxide 22 22 - 29 mmol/L [facility] Anion Gap 14 12 - 20 [facility] Urea Nitrogen (BUN) 12 9 - 16 mg/dL [facility] Creatinine, Serum 0.80 0.5 - 1.4 mg/dL [facility] Creatinine Clr Calc Pharmacy 113.7 [facility] Comment:Provided height and weight: 162.56 cm,94.801 kg.eGFR (calculated from the MDRD study equation) and eCrCl(calculated from the Cockcroft-Gault equation) are based ondifferent parameters and may not yield comparable results.If eCrCl result is absurd, please check patient'sheight/weight. Estimated Glomerular Filt Rate >60 [facility] Comment:Chronic Kidney Disea se: Estimated GFR < 60 mL/min/1.38o5Axjgby Kidney Disease: Estimated GFR < 15 mL/min/1.73m2 Glucose 93 60 - 115 mg/dL [facility] Calcium 9.4 8.4 - 10.2 mg/dL [facility] Bilirubin, Total 0.5 0.0 - 1.0 mg/dL [facility] Aspartate Amino Transferase 22 5 - 31 U/L [facility] Alanine Aminotransferase 36(H) 0 - 31 U/L [facility] Total Protein 7.7 6.5 - 8.0 g/dL [facility] Albumin Level 4.9 3.5 - 5.0 g/dL [facility] Alkaline Phosphatase 93 39 - 117 U/L [facility] 03/18/2025 8:56 PM EDT 03/18/2025 9:00 PM EDT us Generic External Data Provider LAB BLOOD ORDERAB LES Final Result [facility] [address] [place] [phone] [phone] * CBC auto differential (03/18/2025 8:56 PM EDT) White Blood Count 9.0 4.8 - 10.8 X10*3/uL [facility] Red Blood Count 4.72 4.20 - 5.50 X10*6/uL [facility] Hemoglobin 13.5 12.0 - 16.0 g/dl [facility] Hematocrit 40.4 37.0 - 47.0 % [facility] Mean Corpuscular Volume 85.6 80.0 - 98.0 fL [facility] Mean Corpuscular Hemoglobin 28.6 27.0 - 33.0 pg [facility] Mean Corpuscular HGB Conc 33.4 31.0 - 35.0 g/dl [facility] Red Cell Distribution Width 11.9 11.0 - 16.0 % [facility] Platelet Count 287 160 - 400 X10*3/uL [facility] Mean Platelet Volume 9.9 9.4 - 12.3 fL [facility] Neutrophils Percent Auto 65.8 45 - 73 % [facility] Imm Gran Pct Auto 0.2 0.0 - 0.4 % [facility] Lymphocytes Percent Auto 25.6 20 - 40 % [facility] Monocytes Percent Auto 5.6 2 - 11 % [facility] Eosinophils Percent Auto 2.4 0 - 4 % [facility] Basophils Percent Auto 0.4 0 - 2 % [facility] NRBC Pct Auto 0.0 0.0 - 0.2 /100WBC [facility] Neutrophils Absolute Auto 5.9 2.0 - 8.3 x10*3/uL [facility] Imm Gran Abs Auto 0.02 0.00 - 0.03 X10*3/uL [facility] Lymphocytes Absolute Auto 2.3 1.2 - 4.9 X10*3/uL [facility] Monocytes Absolute Auto 0.5 0.1 - 1.2 X10*3/uL [facility] Eosinophils Absolute Auto 0.2 0.0 - 0.4 X10*3/uL [facility] Basophils Absolute Auto 0.0 0.0 - 0.2 X10*3/uL [facility] NRBC Abs Auto 0.000 0.0 - 0.012 X10*3/uL [facility] 03/18/2025 8:56 PM EDT 03/18/2025 9:00 PM EDT us Generic External Data Provider LAB BLOOD ORDERAB LES Final Result Performing Organization Address [facility]/ZIP Co de Phone Number [facility] [address] [place] [phone] * HPV DNA, Low/High Risk (11/18/2024 2:31 PM EDT) HPV High Risk Negative Negative [facility] HPV Genotype 16 Negative Negative [facility] HPV Genotype 18 Negative Negative [facility] Comment:HPV testing performe d at [facility] (CLIA#[id number]), [address] [place] [address].Testing for HPV was performed using the Vincent [...] PM EDT 11/19/2024 8:02 AM EDT us Iqra [facility] LAB BLOOD ORDERABLES Susannah l Result [facility] [address] [place] [phone] documented in this encounter Visit Diagnoses Not on filedocumented in this encounter Additional Health Concerns Assessment Noted Time PHQ-9 Depression Total Score: 5 05/20/20 24 10:28 AM EST documented as of this encounter Care Teams Automotive Parts Manager Relationship Specialty Start Date End Date Brenda Carreno MD [address] [place] [phone] PCP - General Family Medicine 02/21/18 River Granger RN [address] [place] [phone] Registered Nurse Family Medicine 01/08/25 Valery Banegas 01/08/25 documented as of this encounter
--- OUTSIDE RECORDS SUMMARY | 2025-03-18 23:21 | XMS_ITS ---
Author Organization [employer] Address [address] [place] [address] [place] [address] Care Team Providers Care Pharmacist Name Role Phone Brenda Carreno MD Primary Care Provide r River Granger RN Unavailable [phone] Valery Banegas Unavailable CM Complex Status:Enrolled (Active) Start date:01/08/2025 Enrollment date:02/11/2025 Enrollment reason:ADT Feed Overview ED- Pt went to [facility] ED on 01/07/25. Case Team Name Relationship Phone River Granger RN(Responsible Staff) Registered Nurse [phone] Continued Care and Services Coordination
--- OUTSIDE RECORDS SUMMARY | 2025-03-18 23:21 | XMS_ITS | Encounter Summary ---
Author Organization [employer] Address [address] [facility] 7 [place] [address] Care Team Providers Care Funeral Pre Arrangement Specialist Name Role Phone Brenda Carreno MD Primary Care Provide r River Granger RN Unavailable [phone] Valery Banegas Unavailable Reason for Visit * Reason Onset Date Comments Nurse Triage 07/09/2024 Encounter Details Date Type Department Care Team (Late st Contact Info) Description 07/09/2024 Telephone [facility] [address] [place], [place] [phone] Brenda Carreno MD [address] [place], [place] [phone] Nurse Triage Social History Tobacco Use Types Packs/Day Years [...] Recorded Patient Health Questionnaire-2 Score 2 05/20/2024 Comments No Sex and Gender Information Value Date Recorded Sex Assigned at Female 04/11/2022 10:15 AM EDT Legal Sex Female 10:15 AM EDT Gender Identity Female 04/11/2022 10:15 AM EDT Sexual Orientation Straight 04/11/2022 10 :15 AM EDT documented as of this encounter Miscellaneous Notes * Telephone Encounter - Yoselin Orozco RN - 07/09/2024 11:24 AM EST called pt to triage, spoke to pt. pt states seen in the walk in on 05/19 and her BP medication was changed from HCTZ to Losartan. pt states since then, pt has had intermittent dizziness and fatigue. pt denies constant dizziness, falls, low or high BP readings, or other associated symptoms. pt statesno severe symptoms and was advised home care: rest, fluids to stay hydrated, lie down, fall precautions, good nutrition and call back in 2-3 days if still having symptoms or worsening. pt understandsand agrees with plan. pt missed her follow up apt on 06/19. will task to team [place] to reschedule as appropriate. Protocol Used: Dizziness (Adult) Protocol-Based Disposition: Home Care Positive Triage Question: * Dizziness caused by not drinking enough fluids * All higher-acuity triage questions were negative Care Advice Discussed: * Drink Fluids * Lie Down and Rest * Cool Off * Reasons To Call Back - After 2 hours of rest and fluids and you are still feeling dizzy - You pass out (faint) or are too weak to stand - You become worse * Telephone Encounter - Gerda Mena - 07/09/2024 10:18 AM EST Symptom: Medication Reaction Outcome: Schedule an urgent appointment (within 1 hour) or talk to a nurse or provider soon Reason: Caller denied all higher acuity questions The caller accepted this outcome. documented in this encounter Plan of Treatment Upcoming Encounters Date Type Department Care Team (Late st Contact Info) Description 04/23/2025 10:15 AM EST Office Visit [facility] [address] [place] [phone] Brenda Carreno MD [address] [place] [phone] documented as of this encounter Visit Diagnoses Not on filedocumented in this encounter Additional Health Concerns Assessment Noted Time PHQ-9 Depression Total Score: 5 05/20/20 24 10:28 AM EST documented as of this encounter Care Teams Funeral Pre Arrangement Specialist Relationship Specialty Start Date End Date Brenda Carreno MD [address] [place] [phone] PCP - General Family Medicine 02/21/18 River Granger, RN [address] [place] [phone] Registered Nurse Family Medicine 01/08/25 Valery Banegas 01/08/25 documented as of this encounter
--- OUTSIDE RECORDS SUMMARY | 2025-03-18 23:21 | XMS_ITS | Encounter Summary ---
Author Organization [employer] Address [address] [facility] 7t [place] [address] Care Team Providers Care Window Tinter Name Role Phone Brenda aCrreno MD Primary Care Provide r River Granger RN Unavailable [phone] Valery Banegas Unavailable Encounter Details Date Type Department Care Team (Late st Contact Info) Description 01/22/2025 Telephone [facility] [address] [place], [place] [phone] Brenda Carreno MD [address] [place], [place] [phone] Social History Tobacco Use Types Packs/Day Years [...] Description 04/23/2025 10:15 AM EST Office Visit [facility] [address] [place] [phone] Brenda Carreno MD [address] [place] [phone] documented as of this encounter Visit Diagnoses Not on filedocumented in this encounter Additional Health Concerns Assessment Noted Time PHQ-9 Depression Total Score: 12 025 10:41 AM EDT documented as of this encounter Care Teams Window Tinter Relationship Specialty Start Date End Date Brenda Carreno MD [address] [place] [address] PCP - General Family Medicine 02/21/18 River Granger RN [address] [place] [phone] Registered Nurse Family Medicine 01/08/25 Valery Banegas 01/08/25 documented as of this encounter
--- OUTSIDE RECORDS SUMMARY | 2025-03-18 23:21 | XMS_ITS | Clinical Summary ---
Author Organization [facility] Address [address] [place] [address] Phone Care Team Providers Care Battery Test Engineer Name Role Phone Brenda Carreno MD Primary Care Provide r Allergies No known active allergies Encounters Date Type Department Care Team Description 01/07/2025 1:45 PM EDT Office Visit Orthopedic Surgery [address] [phone] Tim Whitehead, DPM Verruca plantaris (Primary Dx); Corns and [...] on file Obstetrics History Plan of Treatment Health Maintenance Due Date Last Done Comments Hepatitis B Vaccines (1 of 3 - 19+ 3-dose series) 2012 HPV Vaccines (1 - 3-dose SCDM series) 2020 Depression Screening 06/12/2024 HIV Screening 09/20/2024 Hepatitis C Screening 09/20/2024 Social Influencers of Health Screening 09/20/2024 Hypertension/CHF/CAD Annual BMP Blood Test 11/27/2024 COVID-19 Vaccine ( - season) 2025 01/15/2021 Influenza Vaccine (#1) 2025 , 03/22/2023, 05/17/2021, Additional history exists Cholesterol Screening (Lipid Panel) 09/09/2026 09/09/2021 Cervical Cancer Screening: Pap Smear 11/19/2027 11/18/2024 DTaP,Tdap,and Td Vaccines (3 - Td or Tdap) 08/06/2029 08/06/2019, 04/10/2017 RSV Immunization Adult Patients (1 - 1-dose 75+ series) 2068 Pneumococcal [...] to complete this topic Insurance [place] Care Teams Battery Test Engineer Relationship Specialty Start Date End Date Brenda Carreno MD [address] [place] [phone] PCP - General Internal Medicine 09/20/24
--- OUTSIDE RECORDS SUMMARY | 2025-03-18 23:21 | XMS_ITS ---
Author Organization [employer] Address [address] [place] [address] Care Team Providers Care Boxing Instructor Name Role Phone Brenda Carreno MD Primary Care Provide r River Granger RN Unavailable [phone] Valery Banegas Unavailable CHW Complex Status:Enrolled (Active) Start date:01/08/2025 Enrollment date:03/12/2025 Enrollment reason:ADT Feed Overview ED- Pt went to [facility] ED on 01/07/25. Please outreach for enrollment. Case Team Name Relationship Phone Valery Banegas(Responsible Staff) [phone] Continued Care and Services Coordination
[2025-03-18 23:22] VITALS: BP 132/84; PULSE 83; RESP 16; TEMP 36.7; O2SAT 98
--- NOTE | 2025-03-19 00:41 | ED.ABDPAIN ---
HPI - Abdominal Pain General Chief Complaint: Abdominal Pain Stated Complaint: upper abd pain for about 1wk Time Seen by Provider: 03/18/25 23:18 Source: patient Mode of arrival: ambulatory Limitations: no limitations History of Present Illness ED Provider: Dr. Kim Prieto HPI narrative: 29-year-old female with history of asthma and hyperthyroidism presenting with left upper quadrant and epigastric abdominal pain ongoing for the last 10 days or so. Describes associated nausea but no vomiting. Admits that the pain is worse with any food or drink. No associated fever. Denies bowel changes or urinary complaints. Had a menstrual cycle last month. Denies chest pain or difficulty breathing. Related Data Home Medications ?Medication ?Instructions ?Recorded ?Confirmed fluticasone propionate 50 1 spray intranasal DAILY 10/23/20 08/28/23 mcg/actuation nasal spray,suspension (Flonase Allergy Relief) loratadine 10 mg capsule 10 mg PO DAILY 10/23/20 08/28/23 levothyroxine 75 mcg tablet 75 mcg PO DAILY 04/10/23 08/28/23 labetalol 100 mg tablet 100 mg PO BID 08/28/23 08/28/23 Previous Rx's ?Medication ?Instructions ?Recorded hydroxyzine HCl 25 mg tablet 25 mg PO BID PRN anxiety #20 tabs 09/22/23 albuterol sulfate 90 mcg/actuation 2 puff inhalation Q6H PRN wheezing 03/12/24 aerosol inhaler (Ventolin HFA) #1 ea fluticasone propionate 110 2 puff inhalation BID #12 grams 03/12/24 mcg/actuation HFA aerosol inhaler ipratropium 0.5 mg-albuterol 3 mg 3 ml inhalation Q4-6H PRN wheezing 03/12/24 (2.5 mg base)/3 mL nebulization #180 mL soln aluminum-mag hydroxide-simethicone 5 ml PO 5XD PRN dyspepsia #100 mL 03/19/25 200 mg-200 mg-20 mg/5 mL oral susp (Antacid) dicyclomine 20 mg tablet 20 mg PO TID #10 tabs 03/19/25 Allergies Allergy/AdvReac Type Severity Reaction Status Date / Time No Known Drug Allergies (NO Allergy Unknown NONE Verified 03/18/25 20:25 KNOWN DRUG ALLERGIES) Apple (Diagnostic) Allergy Unknown shortness Uncoded 03/18/25 20:25 of breath ENVIRONMENTAL Allergy Unknown EYES RUNNY Uncoded 03/18/25 20:25 STUFFY kiwi, pears, dogs/cats, Allergy Unknown shortness Uncoded 03/18/25 20:25 season of breath Review of Systems Review of Systems as per HPI, full review of systems performed and negative but for the above mentioned pertinent positives and negatives. [facility] Past Medical History Medical History Obesity Vitamin D deficiency Multinodular goiter Subclinical hyperthyroidism Surgical History Hx of tonsillectomy Family History Family History Father Diabetes Mother Lyme disease Pre-diabetes HTN (hypertension) Son No problems noted. Social History Social History Alcohol intake: never Patient Tobacco Use Status: Never used Tobacco Smoked in Last 30 Days: No Use of substances other than those prescribed or required for medical reasons: No Advance Directives: No Advance Directives Information Provided: Yes Do you have a plan to hurt others: No Plan Patient : No Physical Exam ED Exam Exam: GENERAL: Nontoxic-Appearing, appears uncomfortable. SKIN: Normal skin color for ethnicity, warm, dry, no rashes noted. HEENT:? Normocephalic, atraumatic, no stridor, dry mucous membranes, dentition intact, EOMI. NECK: Soft, supple, full ROM, midline structures nontender, no step-offs, no deformities, no lymphadenopathy. CHEST: Heart regular rhyhtm, no murmurs, symmetric chest rise and fall. PULMONARY: Clear to auscultation bilaterally, diminished at the bases, no labored breathing, no wheezes/rhales/rhonchi. ABDOMINAL: Soft, nondistended, nontender, positive bowel sounds in all quadrants. : Deferred. MUSCULOSKELETAL: Normal tone, full range of motion, no deformities, no peripheral edema. NEURO: Alert and oriented x3, CN II through XII intact, equal strength and sensation bilateral upper and lower extremities, no focal neurologic deficits.? PSYCHIATRIC: Flat affect, fluid speech, good eye contact and appropriate demeanor. Vital Signs: Vital Signs - 24 hr 03/18/25 20:23 03/18/25 23:22 Temperature 98.4 F 98.1 F Pulse Rate 94 83 Respiratory Rate 16 16 Blood Pressure 155/84 H 132/84 Pulse Oximetry 98 98 Oxygen Delivery Method Room Air Room Air BMI result Body Mass Index 35.9 Medical Decision Making Medical Decision Making [facility] Narrative: This patient presents today with a chief complaint of abdominal pain. Differential diagnosis for this patient is broad.? It includes cholecystitis, bowel obstruction, diverticulitis, peptic ulcer disease, pyelonephritis, vascular pathology, among many others.? A broad-based workup based on history and physical examination was obtained. ? Patient was given GI cocktail for pain control. ? Patient improving after GI cocktail. No acute abnormality on bloodwork or exam. No indication for imaging at this time. Using shared decision making, plan for discharge home to follow-up with primary care and/or specialist.? Patient understands and agrees with plan for discharge.? Discharged home in stable condition. Differential Diagnosis Differential Diagnoses: The differential diagnosis associated with the presentation includes (as above) Admission/Observation Consideration of admission/observation: Escalation of care including admission/observation considered Lab Data [facility] Lab Attestation statement: I reviewed the patient's lab results. 03/18/25 20:56 03/18/25 20:56 Labs: Lab Results 03/18/25 03/18/25 Range/Units 20:56 21:02 WBC 9.0 (4.8-10.8) X10*3/uL RBC 4.72 (4.20-5.50) X10*6/uL Hgb 13.5 (12.0-16.0) g/dl Hct 40.4 (37.0-47.0) % MCV 85.6 (80.0-98.0) fL MCH 28.6 (27.0-33.0) pg MCHC 33.4 (31.0-35.0) g/dl RDW 11.9 (11.0-16.0) % Plt Count 287 (160-400) X10*3/uL MPV 9.9 (9.4-12.3) fL Immature Gran % (Auto) 0.2 (0.0-0.4) % Neut % (Auto) 65.8 (45-73) % Lymph % (Auto) 25.6 (20-40) % [place] % (Auto) 5.6 (2-11) % Eos % (Auto) 2.4 (0-4) % Baso % (Auto) 0.4 (0-2) % Lymph # (Auto) 2.3 (1.2-4.9) X10*3/uL [place] # (Auto) 0.5 (0.1-1.2) X10*3/uL Eos # (Auto) 0.2 (0.0-0.4) X10*3/uL Baso # (Auto) 0.0 (0.0-0.2) X10*3/uL Abs Immat Gran (auto) 0.02 (0.00-0.03) X10*3/uL Absolute Neuts (auto) 5.9 (2.0-8.3) x10*3/uL Absolute Nucleated RBC 0.000 (0.0-0.012) X10*3/uL Nucleated RBC % (auto) 0.0 (0.0-0.2) /100WBC Sodium 141 (135-145) mmol/L Potassium 3.9 (3.3-5.1) mmol/L Chloride 109 H (96-108) mmol/L Carbon Dioxide 22 (22-29) mmol/L Anion Gap 14 (12-20) BUN 12 (9-16) mg/dL Creatinine 0.80 (0.5-1.4) mg/dL Estim Creat Clear Calc 113.7 Estimated GFR > 60 Random Glucose 93 (60-115) mg/dL Calcium 9.4 (8.4-10.2) mg/dL Magnesium 2.0 (1.6-2.6) mg/dL Total Bilirubin 0.5 (0.0-1.0) mg/dL AST 22 (5-31) U/L ALT 36 H (0-31) U/L Alkaline Phosphatase 93 (39-117) U/L Total Protein 7.7 (6.5-8.0) g/dL Albumin 4.9 (3.5-5.0) g/dL Lipase 28 (8-78) U/L Beta HCG, Quant < 2 mIU/mL Urine Color Yellow Urine Appearance Clear Urine pH 7.0 (5.0-9.0) Ur Specific Mar[place] 1.010 (1.005-1.025) Urine Protein Negative (Neg-Trace) mg/dL Urine Glucose (UA) Negative (Negative) mg/dL Urine Ketones Negative (Negative) mg/dL Urine Blood Negative (Negative) Urine Nitrite Negative (Negative) Ur Leukocyte Esterase Negative (Negative) Urine RBC 0-2 (0-2) /HPF Urine WBC 0-5 (0-5) /HPF Ur Squamous Epith Cells 0-2 (0-2) /HPF Urine Bacteria None Seen (None Seen) Hyaline Casts 0-2 (0-2) /LPF Prescription Management I considered prescription management with: Pain Medication and Other (antacids) Chronic Conditions Patient?s care impacted by: Other (hyerthyroidism) Social Determinants Patient?s care significantly limited by Social Determinants of Health including: Other Social Determinant of Health Medications Administered Discontinued Medications Generic Name Dose Route Start Last Admin Trade Name Lilian PRN Reason Stop Dose Admin Al Hydroxide/Mg Hydroxide 30 ml 03/19/25 00:42 03/19/25 01:06 Magnesium Hydrox/Alum Hydrox 30 Ml Oral.Susp PO 03/19/25 00:43 30 ml ONCE ONE Administration Dicyclomine HCl 20 mg 03/19/25 00:42 03/19/25 01:03 Dicyclomine Hcl 10 Mg Capsule PO 03/19/25 00:43 20 mg ONCE ONE Administration Lidocaine HCl 15 ml 03/19/25 00:42 03/19/25 01:02 Lidocaine Hcl Viscous 2 % 15 Ml Solution MUCOUS MEM 03/19/25 00:43 15 ml ONCE ONE Administration Discharge Plan Discharge Clinical Impression: Acute epigastric pain, Gastritis Patient Disposition: Home, Self-Care Instructions: Epigastric Pain (ED) Additional Instructions: Your pain is likely related to increased acid production in the stomach also known as gastritis. Drink plenty of fluids over the next several days. Use antacid medications to help with that burning sensation in your belly. Use dicyclomine for stomach cramping. Follow up with your primary care doctor if her symptoms persist. Return to the emergency department with any new or worsening symptoms including: Worsening pain despite medication, fevers greater than 100?, vomiting, bloody stools, any new symptom that concerns you. Call 911 with any medical emergency. Prescriptions: New dicyclomine 20 mg tablet 20 mg PO TID Qty: 10 0RF alum-mag hydroxide-simeth [Antacid] 200-200-20 mg/5 mL suspension 5 ml PO 5XD PRN (Reason: dyspepsia) Qty: 100 0RF Rx Instructions: administer between meals and at bedtime No Action hydroxyzine HCl 25 mg tablet 25 mg PO BID PRN (Reason: anxiety) Qty: 20 0RF loratadine 10 mg capsule 10 mg PO DAILY fluticasone propionate [Flonase Allergy Relief] 50 mcg/actuation spray,suspension 1 spray intranasal DAILY Rx Instructions: administer into each nostril levothyroxine 75 mcg tablet 75 mcg PO DAILY labetalol 100 mg tablet 100 mg PO BID ipratropium-albuterol 0.5 mg-3 mg(2.5 mg base)/3 mL solution for nebulization 3 ml inhalation Q4-6H PRN (Reason: wheezing) Qty: 180 6RF albuterol sulfate [Ventolin HFA] 90 mcg/actuation HFA aerosol inhaler 2 puff inhalation Q6H PRN (Reason: wheezing) Qty: 1 6RF fluticasone propionate 110 mcg/actuation HFA aerosol inhaler 2 puff inhalation BID Qty: 12 6RF Interventions: ED Discharge Assessment Last Done: 03/19/25 01:40 Discharge Date/Time: 03/19/25 01:41 Print Language: Stateless
[2025-03-19] MEDS: Lidocaine HCl Viscous 2 % 15 ML SOLUTION MUCOUS MEM (01:02)
[2025-03-19] MEDS: Magnesium Hydrox/Alum Hydrox 30 ML ORAL.SUSP PO (01:06)
[2025-03-19 01:40] VITALS: BP 132/84; PULSE 83; RESP 16; TEMP 36.7; O2SAT 98
== END 2025-03-19 01:41 | disposition home or self-care (01) ==
PROVIDERS: Emergency Provider Emergency Medicine; PCP Internal Medicine
DX: R10.13 Epigastric pain (principal); K29.70 Gastritis, unspecified, without bleeding; R10.10 Upper abdominal pain, unspecified; Z79.899 Other long term (current) drug therapy
CPT/HCPCS: 36415; 80053; 81001; 83690; 83735; 84702; 85025; 99283; 99284

== ENCOUNTER → 2025-04-16 11:33 | Outpatient (REF) | payer MEDICAID, SELFPAY | LOC: HO.SL 11:33 | PROVIDERS: PCP Internal Medicine; Visit Provider Internal Medicine | DX: R06.83 Snoring (principal) | CPT/HCPCS: 95806 ==

== ENCOUNTER → 2025-04-16 21:00 | Outpatient (BNV) | payer MEDICAID, SELFPAY | PROVIDERS: PCP Internal Medicine; Visit Provider Internal Medicine | DX: R06.83 Snoring (principal) | CPT/HCPCS: 95806 ==

== ENCOUNTER 2025-04-25 09:57 | Outpatient (AMB) | payer MEDICAID, SELFPAY ==
[2025-04-25 10:12] VITALS: BP 139/89; PULSE 83; TEMP 36.6; O2SAT 100; BMI 36.3
--- NOTE | 2025-04-25 10:12 | A.OFFVIS_ITS ---
VS Expanded 04/25/25 10:12 BP 139/89 Pulse 83 Pulse Source Palpation Temp 97.8 F Pulse Oximetry 100 Oxygen Delivery Method Room Air Height 5 ft 4 in Weight 211 lb 9.6 oz BMI 36.3 Body Fat % 43.8 Body Fat Mass 92.6 Fat Free Mass 118.8 Visceral Fat Rating 9.0 Body Water % 40.4 Body Water Mass 85.4 Muscle Mass/Score 112.8 Basal Metabolic Rate/Score 1,690 Intake Visit Reasons: [employer] [facility] BMI 35.9 Allergies No Known Drug Allergies (NO KNOWN DRUG ALLERGIES) Allergy (Unknown, Verified 04/25/25 10:33) NONE Apple (Diagnostic) Allergy (Unknown, Uncoded 04/25/25 10:33) shortness of breath ENVIRONMENTAL Allergy (Unknown, Uncoded 04/25/25 10:33) EYES RUNNY STUFFY kiwi, pears, dogs/cats, season Allergy (Unknown, Uncoded 04/25/25 10:33) shortness of breath Medication List - Last Reconciled 04/25/25 by Angelo Melvin MD albuterol sulfate 90 mcg/actuation (Ventolin HFA) 2 puffs inhalation Q6H PRN fluticasone propionate 50 mcg/actuation (Flonase Allergy Relief) 1 spray intranasal DAILY fluticasone propionate 110 mcg/actuation 2 puffs inhalation BID ipratropium-albuterol 0.5 mg-3 mg(2.5 mg base)/3 mL 3 mL inhalation Q4-6H PRN labetalol 100 mg PO BID levothyroxine 75 mcg PO DAILY loratadine 10 mg PO DAILY HPI Comments Details: Previous weight loss efforts: self diets and exercise Wakes up: 7am, Sleeps: 10pm Breakfast: 8am 2-3/wk (eggs, crackers) Lunch: 12pm (tuna sandwich, rice, fuitballs) Dinner: 6pm(rice, beans, chicken) Snacks: 10am (fruit, peanut butter cracker, chips), 4pm (yogurt) Exercise: Gym membership Beverages: Coffee 1-2/d (with sugar and milk), Tea: hot tea (1 cup/d with orange, gianfranco), Soda: rarely, Juice: <1/wk, ETOH: none PFSH Medical History (Updated 04/25/25 @ 10:54 by Angelo Melvin MD) BMI 36.0-36.9,adult Obesity Vitamin D deficiency Multinodular goiter Subclinical hyperthyroidism Surgical History Hx of tonsillectomy Family History Father Diabetes Mother Lyme disease Pre-diabetes HTN (hypertension) Son No problems noted. Social History Alcohol intake: never Patient Tobacco Use Status: Never used Tobacco Physical Exam Vital Signs: Last Vital Signs Temp 97.8 F 04/25/25 10:12 Pulse 83 04/25/25 10:12 BP 139/89 04/25/25 10:12 Pulse Ox 100 04/25/25 10:12 Oxygen Delivery Method Room Air 04/25/25 10:12 BMI result Body Mass Index 36.3 GI Inspection: Yes normal to inspection (Gynecoid) and Yes incision (welll healed) Palpation (GI): Soft to palpation Extrem Right lower extremity: normal to inspection Left lower extremity: normal to inspection Assessment & Plan Assessment & Plan (1) Obesity: Code(s): E66.9 - Obesity, unspecified Category: Medical Qualifiers: Obesity type: due to excess calories Obesity classification: adult class 2 (BMI 35 - 39.9) Serious obesity comorbidity presence: with serious comorbidity Body mass index: BMI 36.0-36.9 Qualified Code(s): E66.01 - Morbid (severe) obesity due to excess calories; Z68.36 - Body mass index [BMI] 36.0- 36.9, adult Plan: 1. Nutritional counseling. Start with one CELEBRATE REBUILD protein (buy online with the link I gave you) shake (ONE scoop in 8oz low fat unsweetened almond milk each) at 8am-10am, 1 protein bar (CELEBRATE protein bars, buy at [facility], buy online with the link I gave you) ) at 11am-1pm, another CELEBRAT E REBUILD protein shake (ONE scoop in 8oz low fat unsweetened almond milk each) at 2pm-4pm, dinner at 5pm (8 forks of protein and 8 forks of salad/vegetables) another Celebrate protein bar at 7pm-9pm So you do 2 protein shakes, 2 protein bars and one meal per day. Meal to include lean meat (beef, fish, pork, turkey, chicken), or faroese yogurt, or egg whites, or beans with a salad with olive oil and fruits (berries, pears, apples, kiwi). Avoid salt, breads, potatoes, rice, pasta, desserts. 2. Each shake would be drunk slowly, like coffee in a period of 2 hours. 3. Cut each bar in 4 pieces and eat each piece in 30min ?to make each bar last 2 hours. 4. I emphasized the importance of measuring accurately the food portion and measure it when serving the food in plate 5. The meal portions include 8 full-size forks of meat and 8 full-size forks of salad. You always eat the meat portion but you can replace up to 4 forks for salad/vegetables with rice, potatoes or pasta, or a fruit ?if you like. The less you do it the better weight loss will be. 6. One full-size fork is what it can be scooped on the fork without falling aside and not what can be bit with the fork. Use regular forks like those you find in a typical restaurant. 7.? Please buy the body composition scale we discussed and send me weight measurements as soon as possible and then once a week. Always include your diet and exercise plan. 8. Start treadmill with an incline of 2.0 and speed of 3.0. Increase incline by 1 every 3 min to a max incline of 8.0, stay 3min at 8.0 and then return to 2.0 and repeat same steps until calorie goal is met. Goal is to burn 2000 calories per week on exercise, which means either 300 calories daily, or 400 calories 5 days per week, or 500 calories 4 days per week. 9. The best choice would be to purchase a stationary bike, elliptical or treadmill at home that can track calories. Let me know if you do so I can give you an exercise plan. 10. Goal is to lose at least 1.5-2lbs per week 11. Goal to lose at least 10% of your weight, which is about 21lbs. Minimum weight goal: 190lbs 12. Please follow the diet plan exactly without any change. If you don't like something about the plan or you feel hungry you need to communicate with me so I can help you revise the plan. You should not change the plan yourself
== END 2025-04-25 11:06 | disposition home or self-care (01) ==
LOC: HO.HBS 09:57
PROVIDERS: PCP Internal Medicine; Visit Provider Surgery
DX: E66.9 Obesity, unspecified (principal); Z68.36 Body mass index [BMI] 36.0-36.9, adult
CPT/HCPCS: 99204

== ENCOUNTER → 2025-04-25 09:57 | Outpatient (BNVA) | payer MEDICAID, SELFPAY | PROVIDERS: PCP Internal Medicine; Visit Provider Surgery | DX: E66.01 Morbid (severe) obesity due to excess calories (principal); Z68.36 Body mass index [BMI] 36.0-36.9, adult | CPT/HCPCS: 99202 ==

== ENCOUNTER 2025-05-21 12:40 | Outpatient (REF) | payer MEDICAID, SELFPAY | END 2025-05-21 12:41 | LOC: HO.LNP 12:40 | PROVIDERS: Visit Provider Internal Medicine | DX: R10.12 Left upper quadrant pain (principal) | CPT/HCPCS: 87338 ==